=== PATIENT | male | born 1935 | race Caucasian/White ===

== ENCOUNTER 2018-01-02 01:34 | Emergency (ER) | payer MEDICARE ==
[2018-01-02 02:30] LABS: AGAP ISTAT 16 mmol/L (6-14); BUN ISTAT 29 mg/dL (8-26); CHLORIDE ISTAT 102 mmol/L (98-110); CREATININE ISTAT 1.5 mg/dL (0.5-1.4); GLUCOSE ISTAT 138 mg/dL (70-99); HEMATOCRIT ISTAT 37 % (37-52); HEMOGLOBIN ISTAT 12.6 g/dL (14-18); ION CA ISTAT 1.19 mmol/L (1.13-1.32); POTASSIUM ISTAT 3.9 mmol/L (3.5-5.0); SODIUM ISTAT 142 mmol/L (135-145); TOT CO2 ISTAT 29 mmol/L (23-32)
[2018-01-02] MEDS: IV NORMAL SALINE 1000ML BAG 1,000 ML IV (02:41)
[2018-01-02] MEDS: ONDANSETRON PF 4 MG/2 ML VIAL. IV (02:41)
[2018-01-02] MEDS ORDERED: IV NORMAL SALINE 1000ML BAG 1,000 ML IV (04:12)
[2018-01-02] MEDS ORDERED: ONDANSETRON PF 4 MG/2 ML VIAL. IV (04:15)
[2018-01-02] MEDS ORDERED: MORPHINE SULFATE 4 MG/ML DISP.SYRIN. IV (04:15)
== END 2018-01-02 04:47 | disposition home or self-care (01) ==
LOC: ER 01:34
DX: B34.9 Viral infection, unspecified (principal); I71.4 Abdominal aortic aneurysm, without rupture
CPT/HCPCS: 36415; 80047; 84484; 85014; 85018; 93005; 96361; 96374; 99285-25; J2405; J7030

== ENCOUNTER → 2018-01-21 | Outpatient (CLI) | payer MEDICARE ==
[2018-01-18 08:27] LABS: CREATININE 1.6 mg/dL (0.7-1.3)
[2018-01-18 08:27] LABS: GFR 41.7
[~2018-01-21] MED LIST: SODIUM BICARBONATE VIAL 150 MEQ in IV STERILE WATER 1,000 ML IV
[2018-01-21] MEDS: IOHEXOL 300 MG/ML 100ML VIAL. IV (10:36)
== END | disposition home or self-care (01) ==
LOC: CT 07:44
DX: I71.4 Abdominal aortic aneurysm, without rupture (principal); N28.1 Cyst of kidney, acquired; K57.30 Diverticulosis of large intestine without perforation or abscess without bleeding; I10 Essential (primary) hypertension; E11.9 Type 2 diabetes mellitus without complications; Z87.891 Personal history of nicotine dependence
CPT/HCPCS: 36415; 74174; 82565; Q9967

== ENCOUNTER 2018-02-25 23:50 | Inpatient (IN) | payer MEDICARE ==
[2018-02-26 00:25] LABS: ADD MAN DIFF? NO
[2018-02-26 00:30] LABS: BASO # 0.1 x10^3/uL (0.0-0.2); BASO % 1 % (0-3); EOS # 0.3 x10^3/uL (0.0-0.7); EOS % 4 % (0-3); HEMATOCRIT 34.9 % (39.0-53.0); HEMOGLOBIN 11.9 g/dL (13.0-17.5); LYMPH % 26 % (24-48); MEAN CORPUSCULAR HEMOGLOBIN 32 pg (25-35); MEAN CORPUSCULAR HGB CONC 34 g/dL (31-37); MEAN CORPUSCULAR VOLUME 93 fL (79-100); MONO # 0.6 x10^3/uL (0.0-1.1); MONO % 7 % (0-9); NEUT # 4.9 x10^3uL (1.8-7.7); NEUT % 62 % (31-73); PLATELET COUNT 209 x10^3/uL (140-400); RED BLOOD COUNT 3.74 x10^6/uL (4.30-5.70); RED CELL DISTRIBUTION WIDTH 12.7 % (11.5-14.5); WHITE BLOOD COUNT 7.9 x10^3/uL (4.0-11.0)
[2018-02-26] MEDS: IV NORMAL SALINE 1000ML BAG 1,000 ML IV (00:35)
[2018-02-26] MEDS: ONDANSETRON PF 4 MG/2 ML VIAL. IV ×2 (00:35→02:44)
[2018-02-26] MEDS: fentaNYL PF VIAL 100 MCG/2 ML VIAL IV ×5 (00:36→06:55)
[2018-02-26 00:38] LABS: INR 1.2 (0.8-1.1); PARTIAL THROMBOPLASTIN TIME 30 SEC (24-38); PROTHROMBIN TIME PATIENT 14.4 SEC (11.7-14.0)
[2018-02-26 00:48] LABS: ANION GAP 10 (6-14); BLOOD UREA NITROGEN 36 mg/dL (8-26); CALCIUM 10.3 mg/dL (8.5-10.1); CARBON DIOXIDE 28 mmol/L (21-32); CHLORIDE 103 mmol/L (98-107); CREATININE 1.5 mg/dL (0.7-1.3); GFR 44.9; GLUCOSE 113 mg/dL (70-99); POTASSIUM 4.4 mmol/L (3.5-5.1); SODIUM 141 mmol/L (136-145)
[2018-02-26 00:54] LABS: ALBUMIN 3.9 g/dL (3.4-5.0); ALK PHOS 73 U/L (46-116); ALT (SGPT) 19 U/L (16-63); AST (SGOT) 13 U/L (15-37); DIRECT BILIRUBIN 0.1 mg/dL (0.0-0.2); LIPASE 177 U/L (73-393); TOTAL BILIRUBIN 0.4 mg/dL (0.2-1.0); TOTAL PROTEIN 6.9 g/dL (6.4-8.2)
[2018-02-26 00:55] LABS: TROPONINI < 0.017 ng/mL (0.000-0.055)
[2018-02-26] MEDS ORDERED: CONTRAST GIVEN. MC (01:15)
[2018-02-26] MEDS ORDERED: ONDANSETRON PF 4 MG/2 ML VIAL. IV ×3 (03:00→06:00)
[2018-02-26] MEDS: PIPERACILLIN/TAZOBACTAM 3.375 GM in IV NORMAL SALINE 50ML 50 ML IV ×5 (03:30→23:54)
[2018-02-26] MEDS: IV RINGERS,LACTATED 1000ML 1,000 ML IV ×2 (03:33→09:10)
[2018-02-26] MEDS: MORPHINE SULFATE 4 MG/ML DISP.SYRIN. IV (03:34)
[2018-02-26] MEDS ORDERED: fentaNYL PF VIAL 250 MCG/5 ML VIAL (03:36)
[2018-02-26] MEDS ORDERED: ROCURONIUM 50 MG/5 ML VIAL. (03:36)
[2018-02-26] MEDS ORDERED: SUCCINYLCHOLINE 200 MG/10 ML VIAL. (03:36)
[2018-02-26] MEDS ORDERED: SEVOFLURANE 61 TO 120 MINUTES. IH (03:37)
[2018-02-26] MEDS ORDERED: PHENYLEPHRINE in 0.9% NACL PF 1 MG/10 ML SYRINGE. IV (03:37)
[2018-02-26] MEDS ORDERED: PROPOFOL 20 ML IV (03:37)
[2018-02-26] MEDS ORDERED: METHYLENE BLUE 1% 10 ML VIAL. (03:59)
[2018-02-26] MEDS ORDERED: MORPHINE SULFATE 2 MG/ML DISP.SYRIN. IV (04:00)
[2018-02-26] MEDS ORDERED: LIDOCAINE 1% PF 2 ML VIAL. ID (04:00)
[2018-02-26] MEDS ORDERED: PROCHLORPERAZINE 10 MG/2 ML VIAL. IV (04:00)
[2018-02-26] MEDS ORDERED: fentaNYL PF VIAL 100 MCG/2 ML VIAL IV (04:00)
[2018-02-26] MEDS ORDERED: ALBUMIN HUMAN 5% 0 ML IV (04:26)
[2018-02-26] MEDS ORDERED: PHENYLEPHRINE 10 MG/ML VIAL. (04:27)
[2018-02-26] MEDS ORDERED: ESMOLOL 100 MG/10 ML VIAL. IV (04:35)
[2018-02-26] MEDS ORDERED: NEOSTIGMINE METHYLSULFATE 5 MG/5 ML SYRINGE. (04:47)
[2018-02-26] MEDS ORDERED: GLYCOPYRROLATE 1 MG/5 ML VIAL. (04:47)
[2018-02-26] MEDS ORDERED: DEXAMETHASONE SOD PHOS 20 MG/5 ML VIAL. (04:49)
[2018-02-26] MEDS ORDERED: ONDANSETRON PF 4 MG/2 ML VIAL. (04:49)
[2018-02-26] MEDS ORDERED: FAMOTIDINE 20 MG/2 ML VIAL (04:50)
[2018-02-26] MEDS ORDERED: 0.9 % SODIUM CHLORIDE 10 ML DISP.SYRIN. IV (06:00)
[2018-02-26] MEDS ORDERED: fentaNYL PF VIAL 100 MCG/2 ML VIAL (06:19)
[2018-02-26] MEDS: PANTOPRAZOLE IV PUSH 40 MG VIAL. IVP ×2 (09:10→17:04)
[2018-02-26] MEDS: PANTOPRAZOLE SODIUM IV DRIP 80 MG in IV NORMAL SALINE 100ML 100 ML IV (09:43)
[2018-02-26] MEDS: IV 1/2 NORMAL SALINE 1,000 ML IV ×2 (09:44→17:03)
[2018-02-26] MEDS: IOHEXOL 300 MG/ML 100ML VIAL. IV (09:49)
[2018-02-26 12:05] LABS: POC GLUCOSE 143 mg/dL (70-99)
[2018-02-26] MEDS: ENOXAPARIN 40 MG/0.4 ML SYRINGE. SQ (17:05)
[2018-02-26 17:13] LABS: POC GLUCOSE 128 mg/dL (70-99)
[2018-02-26 20:52] LABS: POC GLUCOSE 128 mg/dL (70-99)
[2018-02-26] MEDS: LACTOBACILLUS RHAMNOSUS GG 1 CAPSULE. PO (21:00)
[2018-02-27] MEDS: IV 1/2 NORMAL SALINE 1,000 ML IV (05:59)
[2018-02-27] MEDS: PIPERACILLIN/TAZOBACTAM 3.375 GM in IV NORMAL SALINE 50ML 50 ML IV ×3 (06:00→18:15)
[2018-02-27 06:09] LABS: BASO % 0 % (0-3); EOS % 0 % (0-3); HEMATOCRIT 31.5 % (39.0-53.0); HEMOGLOBIN 10.6 g/dL (13.0-17.5); LYMPH # 0.6 x10^3/uL (1.0-4.8); LYMPH % 5 % (24-48); MEAN CORPUSCULAR HEMOGLOBIN 32 pg (25-35); MEAN CORPUSCULAR HGB CONC 34 g/dL (31-37); MEAN CORPUSCULAR VOLUME 94 fL (79-100); MONO % 8 % (0-9); NEUT # 10.6 x10^3uL (1.8-7.7); NEUT % 87 % (31-73); PLATELET COUNT 175 x10^3/uL (140-400); RED BLOOD COUNT 3.36 x10^6/uL (4.30-5.70); RED CELL DISTRIBUTION WIDTH 13.1 % (11.5-14.5); WHITE BLOOD COUNT 12.2 x10^3/uL (4.0-11.0)
[2018-02-27 06:10] LABS: ADD MAN DIFF? YES
[2018-02-27 06:29] LABS: ANION GAP 7 (6-14); BLOOD UREA NITROGEN 31 mg/dL (8-26); CALCIUM 8.7 mg/dL (8.5-10.1); CARBON DIOXIDE 27 mmol/L (21-32); CHLORIDE 103 mmol/L (98-107); CREATININE 1.7 mg/dL (0.7-1.3); GFR 38.9; GLUCOSE 116 mg/dL (70-99); POTASSIUM 4.6 mmol/L (3.5-5.1); SODIUM 137 mmol/L (136-145)
[2018-02-27 07:43] LABS: % BANDS 16 % (0-9); % BASOS 1 % (0-3); % LYMPHS 3 % (24-48); % METAS 3 % (0-0); % MONOS 4 % (0-10); % SEGS 73 % (35-66)
[2018-02-27 07:44] LABS: PLT ESTIMATE ADEQUATE (ADEQUATE); TOXIC VACUOLATION SLIGHT
[2018-02-27] MEDS: LACTOBACILLUS RHAMNOSUS GG 1 CAPSULE. PO ×2 (09:00→21:00)
[2018-02-27] MEDS: PANTOPRAZOLE IV PUSH 40 MG VIAL. IVP (10:52)
[2018-02-27 12:02] LABS: POC GLUCOSE 100 mg/dL (70-99)
[2018-02-27 12:02] LABS: POC GLUCOSE 112 mg/dL (70-99)
[2018-02-27] MEDS ORDERED: VANCOMYCIN 1 GM in IV DEXTROSE 5% 250 ML IV (16:00)
[2018-02-27] MEDS: AMINO AC 3%/ELECTROLYTE/GLYCER 1,000 ML IV (16:18)
[2018-02-27] MEDS: VANCOMYCIN 2 GM in IV 1/2 NORMAL SALINE 500 ML IV (16:19)
[2018-02-27] MEDS: ENOXAPARIN 40 MG/0.4 ML SYRINGE. SQ (16:30)
[2018-02-27 16:38] LABS: LACTIC ACID 1.5 mmol/L (0.4-2.0)
[2018-02-27] MEDS: IV NORMAL SALINE 1000ML BAG 1,000 ML IV ×2 (16:48→22:00)
[2018-02-27 17:13] LABS: POC GLUCOSE 99 mg/dL (70-99)
[2018-02-27] MEDS: ALBUTEROL SULFATE 2.5 MG/3 ML NEBU. NEB ×2 (17:31→22:17)
[2018-02-27] MEDS: VANCOMYCIN PER PHARMACY MC (18:44)
[2018-02-27 20:45] LABS: POC GLUCOSE 119 mg/dL (70-99)
[2018-02-28] MEDS: PIPERACILLIN/TAZOBACTAM 3.375 GM in IV NORMAL SALINE 50ML 50 ML IV ×4 (00:25→18:00)
[2018-02-28] MEDS: ALBUTEROL SULFATE 2.5 MG/3 ML NEBU. NEB ×2 (02:40→09:47)
[2018-02-28] MEDS: IV NORMAL SALINE 1000ML BAG 1,000 ML IV ×2 (04:00→13:27)
[2018-02-28 05:04] LABS: ADD MAN DIFF? NO
[2018-02-28 05:49] LABS: ANION GAP 9 (6-14); BLOOD UREA NITROGEN 27 mg/dL (8-26); CALCIUM 8.2 mg/dL (8.5-10.1); CARBON DIOXIDE 23 mmol/L (21-32); CHLORIDE 99 mmol/L (98-107); CREATININE 1.4 mg/dL (0.7-1.3); GFR 48.6; GLUCOSE 164 mg/dL (70-99); POTASSIUM 3.9 mmol/L (3.5-5.1); SODIUM 131 mmol/L (136-145)
[2018-02-28] MEDS: AMINO AC 3%/ELECTROLYTE/GLYCER 1,000 ML IV ×2 (06:00→15:15)
[2018-02-28 08:05] LABS: POC GLUCOSE 173 mg/dL (70-99)
[2018-02-28] MEDS: LACTOBACILLUS RHAMNOSUS GG 1 CAPSULE. PO ×2 (08:18→21:00)
[2018-02-28] MEDS: PANTOPRAZOLE IV PUSH 40 MG VIAL. IVP (08:27)
[2018-02-28 08:35] LABS: BASO % 0 % (0-3); EOS % 0 % (0-3); HEMATOCRIT 30.7 % (39.0-53.0); HEMOGLOBIN 10.5 g/dL (13.0-17.5); LYMPH # 0.5 x10^3/uL (1.0-4.8); LYMPH % 4 % (24-48); MEAN CORPUSCULAR HEMOGLOBIN 32 pg (25-35); MEAN CORPUSCULAR HGB CONC 34 g/dL (31-37); MEAN CORPUSCULAR VOLUME 93 fL (79-100); MONO # 0.6 x10^3/uL (0.0-1.1); MONO % 5 % (0-9); NEUT # 12.3 x10^3uL (1.8-7.7); NEUT % 92 % (31-73); PLATELET COUNT 191 x10^3/uL (140-400); RED CELL DISTRIBUTION WIDTH 12.6 % (11.5-14.5); WHITE BLOOD COUNT 13.5 x10^3/uL (4.0-11.0)
[2018-02-28] MEDS: TAMSULOSIN 0.4 MG CAP.ER.24H. PO (09:35)
[2018-02-28 11:23] LABS: POC GLUCOSE 158 mg/dL (70-99)
[2018-02-28 11:40] LABS: LACTIC ACID 2.4 mmol/L (0.4-2.0)
[2018-02-28] MEDS: FLUCONAZOLE 200MG/100ML PREMIX 100 ML IV (13:55)
[2018-02-28] MEDS: ACETAMINOPHEN 325 MG SUPP.RECT. PR (14:06)
[2018-02-28] MEDS ORDERED: VANCOMYCIN 1.25 GM in IV DEXTROSE 5% 250 ML IV (16:00)
[2018-02-28 16:15] LABS: LACTIC ACID 1.4 mmol/L (0.4-2.0)
[2018-02-28] MEDS: ENOXAPARIN 40 MG/0.4 ML SYRINGE. SQ (16:21)
[2018-02-28 16:42] LABS: POC GLUCOSE 163 mg/dL (70-99)
[2018-02-28 21:07] LABS: POC GLUCOSE 135 mg/dL (70-99)
[2018-02-28] MEDS: diphenhydrAMINE 50 MG/ML VIAL IVP (21:31)
[2018-03-01] MEDS: PIPERACILLIN/TAZOBACTAM 3.375 GM in IV NORMAL SALINE 50ML 50 ML IV ×5 (00:16→23:42)
[2018-03-01] MEDS: AMINO AC 3%/ELECTROLYTE/GLYCER 1,000 ML IV ×2 (04:11→16:08)
[2018-03-01 07:20] LABS: ADD MAN DIFF? NO
[2018-03-01 07:32] LABS: BASO % 0 % (0-3); EOS # 0.1 x10^3/uL (0.0-0.7); EOS % 0 % (0-3); HEMATOCRIT 31.2 % (39.0-53.0); HEMOGLOBIN 10.6 g/dL (13.0-17.5); LYMPH # 0.4 x10^3/uL (1.0-4.8); LYMPH % 3 % (24-48); MEAN CORPUSCULAR HEMOGLOBIN 31 pg (25-35); MEAN CORPUSCULAR HGB CONC 34 g/dL (31-37); MEAN CORPUSCULAR VOLUME 92 fL (79-100); MONO # 0.9 x10^3/uL (0.0-1.1); MONO % 6 % (0-9); NEUT # 13.1 x10^3uL (1.8-7.7); NEUT % 91 % (31-73); PLATELET COUNT 207 x10^3/uL (140-400); RED BLOOD COUNT 3.38 x10^6/uL (4.30-5.70); RED CELL DISTRIBUTION WIDTH 12.8 % (11.5-14.5); WHITE BLOOD COUNT 14.5 x10^3/uL (4.0-11.0)
[2018-03-01 07:42] LABS: ALBUMIN 2.1 g/dL (3.4-5.0); ALBUMIN/GLOBULIN RATIO 0.5 (1.0-1.7); ALK PHOS 57 U/L (46-116); ALT (SGPT) 10 U/L (16-63); ANION GAP 9 (6-14); AST (SGOT) 11 U/L (15-37); BLOOD UREA NITROGEN 22 mg/dL (8-26); BUN/CREATININE RATIO 20 (6-20); CALCIUM 8.4 mg/dL (8.5-10.1); CARBON DIOXIDE 23 mmol/L (21-32); CHLORIDE 100 mmol/L (98-107); CREATININE 1.1 mg/dL (0.7-1.3); GFR 64.2; GLUCOSE 146 mg/dL (70-99); POTASSIUM 3.6 mmol/L (3.5-5.1); SODIUM 132 mmol/L (136-145); TOTAL BILIRUBIN 0.4 mg/dL (0.2-1.0)
[2018-03-01 07:55] LABS: LACTIC ACID 1.4 mmol/L (0.4-2.0)
[2018-03-01] MEDS: LACTOBACILLUS RHAMNOSUS GG 1 CAPSULE. PO ×2 (07:59→20:59)
[2018-03-01 08:00] LABS: POC GLUCOSE 136 mg/dL (70-99)
[2018-03-01] MEDS: PANTOPRAZOLE IV PUSH 40 MG VIAL. IVP (08:16)
[2018-03-01] MEDS: TAMSULOSIN 0.4 MG CAP.ER.24H. PO (08:17)
[2018-03-01] MEDS: FLUCONAZOLE 200MG/100ML PREMIX 100 ML IV (11:48)
[2018-03-01 12:27] LABS: POC GLUCOSE 138 mg/dL (70-99)
[2018-03-01] MEDS: ENOXAPARIN 40 MG/0.4 ML SYRINGE. SQ (16:00)
[2018-03-01 16:20] LABS: POC GLUCOSE 127 mg/dL (70-99)
[2018-03-01 21:21] LABS: POC GLUCOSE 118 mg/dL (70-99)
[2018-03-02] MEDS: AMINO AC 3%/ELECTROLYTE/GLYCER 1,000 ML IV ×2 (03:49→17:15)
[2018-03-02 05:13] LABS: ADD MAN DIFF? NO
[2018-03-02 05:40] LABS: BASO % 0 % (0-3); EOS # 0.3 x10^3/uL (0.0-0.7); EOS % 2 % (0-3); HEMATOCRIT 28.2 % (39.0-53.0); HEMOGLOBIN 9.6 g/dL (13.0-17.5); LYMPH # 0.7 x10^3/uL (1.0-4.8); LYMPH % 5 % (24-48); MEAN CORPUSCULAR HEMOGLOBIN 31 pg (25-35); MEAN CORPUSCULAR HGB CONC 34 g/dL (31-37); MEAN CORPUSCULAR VOLUME 92 fL (79-100); MONO # 1.2 x10^3/uL (0.0-1.1); MONO % 9 % (0-9); NEUT # 10.4 x10^3uL (1.8-7.7); NEUT % 83 % (31-73); PLATELET COUNT 224 x10^3/uL (140-400); RED BLOOD COUNT 3.08 x10^6/uL (4.30-5.70); RED CELL DISTRIBUTION WIDTH 12.7 % (11.5-14.5); WHITE BLOOD COUNT 12.6 x10^3/uL (4.0-11.0)
[2018-03-02 06:04] LABS: ALBUMIN/GLOBULIN RATIO 0.5 (1.0-1.7); ALK PHOS 53 U/L (46-116); ALT (SGPT) 14 U/L (16-63); ANION GAP 7 (6-14); AST (SGOT) 12 U/L (15-37); BLOOD UREA NITROGEN 22 mg/dL (8-26); BUN/CREATININE RATIO 22 (6-20); CALCIUM 8.4 mg/dL (8.5-10.1); CARBON DIOXIDE 24 mmol/L (21-32); CHLORIDE 99 mmol/L (98-107); GFR 71.7; GLUCOSE 130 mg/dL (70-99); POTASSIUM 3.9 mmol/L (3.5-5.1); SODIUM 130 mmol/L (136-145); TOTAL BILIRUBIN 0.4 mg/dL (0.2-1.0); TOTAL PROTEIN 5.8 g/dL (6.4-8.2)
[2018-03-02] MEDS: PIPERACILLIN/TAZOBACTAM 3.375 GM in IV NORMAL SALINE 50ML 50 ML IV ×3 (06:05→17:50)
[2018-03-02] MEDS: PANTOPRAZOLE IV PUSH 40 MG VIAL. IVP (06:05)
[2018-03-02] MEDS: ALBUTEROL SULFATE 2.5 MG/3 ML NEBU. NEB ×2 (07:10→16:54)
[2018-03-02] MEDS: TAMSULOSIN 0.4 MG CAP.ER.24H. PO (10:16)
[2018-03-02] MEDS: LACTOBACILLUS RHAMNOSUS GG 1 CAPSULE. PO ×2 (10:16→22:12)
[2018-03-02] MEDS: oxyCODONE/APAP 5/325 1 TAB TABLET PO ×3 (10:35→22:12)
[2018-03-02] MEDS: FLUCONAZOLE 200MG/100ML PREMIX 100 ML IV (12:47)
[2018-03-02 12:55] LABS: POC GLUCOSE 129 mg/dL (70-99)
[2018-03-02 12:56] LABS: POC GLUCOSE 180 mg/dL (70-99)
[2018-03-02] MEDS: FINASTERIDE 5 MG TABLET. PO (15:00)
[2018-03-02] MEDS: metFORMIN 500 MG TABLET PO (15:12)
[2018-03-02] MEDS: ENOXAPARIN 40 MG/0.4 ML SYRINGE. SQ (15:13)
[2018-03-02] MEDS: ALPRAZolam 0.5 MG TABLET PO (19:59)
[2018-03-03] MEDS: PIPERACILLIN/TAZOBACTAM 3.375 GM in IV NORMAL SALINE 50ML 50 ML IV ×4 (00:15→17:28)
[2018-03-03] MEDS: AMINO AC 3%/ELECTROLYTE/GLYCER 1,000 ML IV ×3 (00:15→20:59)
[2018-03-03] MEDS: ALBUTEROL SULFATE 2.5 MG/3 ML NEBU. NEB ×2 (04:13→20:05)
[2018-03-03] MEDS: PANTOPRAZOLE IV PUSH 40 MG VIAL. IVP (06:05)
[2018-03-03] MEDS: LACTOBACILLUS RHAMNOSUS GG 1 CAPSULE. PO ×2 (07:38→20:54)
[2018-03-03] MEDS: TAMSULOSIN 0.4 MG CAP.ER.24H. PO (07:38)
[2018-03-03] MEDS: oxyCODONE/APAP 5/325 1 TAB TABLET PO ×3 (08:32→20:54)
[2018-03-03 08:46] LABS: POC GLUCOSE 141 mg/dL (70-99)
[2018-03-03] MEDS: FINASTERIDE 5 MG TABLET. PO (09:00)
[2018-03-03] MEDS: ENOXAPARIN 40 MG/0.4 ML SYRINGE. SQ (16:22)
[2018-03-03] MEDS: ALPRAZolam 0.5 MG TABLET PO (20:54)
[2018-03-03 21:17] LABS: POC GLUCOSE 131 mg/dL (70-99)
[2018-03-04] MEDS: PIPERACILLIN/TAZOBACTAM 3.375 GM in IV NORMAL SALINE 50ML 50 ML IV ×4 (00:07→18:33)
[2018-03-04] MEDS: AMINO AC 3%/ELECTROLYTE/GLYCER 1,000 ML IV ×2 (00:23→13:13)
[2018-03-04 05:32] LABS: BASO # 0.1 x10^3/uL (0.0-0.2); BASO % 1 % (0-3); EOS # 0.6 x10^3/uL (0.0-0.7); EOS % 6 % (0-3); HEMATOCRIT 30.1 % (39.0-53.0); HEMOGLOBIN 10.4 g/dL (13.0-17.5); LYMPH # 0.6 x10^3/uL (1.0-4.8); LYMPH % 6 % (24-48); MEAN CORPUSCULAR HEMOGLOBIN 32 pg (25-35); MEAN CORPUSCULAR HGB CONC 35 g/dL (31-37); MEAN CORPUSCULAR VOLUME 92 fL (79-100); MONO # 1.1 x10^3/uL (0.0-1.1); MONO % 10 % (0-9); NEUT # 8.2 x10^3uL (1.8-7.7); NEUT % 77 % (31-73); PLATELET COUNT 256 x10^3/uL (140-400); RED BLOOD COUNT 3.27 x10^6/uL (4.30-5.70); RED CELL DISTRIBUTION WIDTH 12.8 % (11.5-14.5); WHITE BLOOD COUNT 10.6 x10^3/uL (4.0-11.0)
[2018-03-04 05:37] LABS: ADD MAN DIFF? YES
[2018-03-04 05:49] LABS: ANION GAP 4 (6-14); BLOOD UREA NITROGEN 26 mg/dL (8-26); CALCIUM 8.7 mg/dL (8.5-10.1); CARBON DIOXIDE 27 mmol/L (21-32); CHLORIDE 101 mmol/L (98-107); CREATININE 1.1 mg/dL (0.7-1.3); GFR 64.2; GLUCOSE 134 mg/dL (70-99); POTASSIUM 4.3 mmol/L (3.5-5.1); SODIUM 132 mmol/L (136-145)
[2018-03-04] MEDS: PANTOPRAZOLE IV PUSH 40 MG VIAL. IVP ×2 (06:02→16:40)
[2018-03-04 08:07] LABS: POC GLUCOSE 120 mg/dL (70-99)
[2018-03-04] MEDS: ALBUTEROL SULFATE 2.5 MG/3 ML NEBU. NEB (09:00)
[2018-03-04] MEDS: FINASTERIDE 5 MG TABLET. PO (09:32)
[2018-03-04] MEDS: LACTOBACILLUS RHAMNOSUS GG 1 CAPSULE. PO ×2 (09:32→21:35)
[2018-03-04] MEDS: TAMSULOSIN 0.4 MG CAP.ER.24H. PO (09:33)
[2018-03-04 12:12] LABS: POC GLUCOSE 137 mg/dL (70-99)
[2018-03-04] MEDS: BISACODYL 10 MG SUPP.RECT. PR (13:50)
[2018-03-04] MEDS: fentaNYL PF VIAL 100 MCG/2 ML VIAL IV ×2 (14:17→17:03)
[2018-03-04] MEDS: ENOXAPARIN 40 MG/0.4 ML SYRINGE. SQ (16:42)
[2018-03-04 16:52] LABS: POC GLUCOSE 131 mg/dL (70-99)
[2018-03-04] MEDS: FUROSEMIDE 20 MG/2 ML VIAL. IVP (18:32)
[2018-03-04 20:51] LABS: POC GLUCOSE 136 mg/dL (70-99)
[2018-03-04] MEDS: SIMVASTATIN 20 MG TABLET PO (21:35)
[2018-03-05] MEDS: PIPERACILLIN/TAZOBACTAM 3.375 GM in IV NORMAL SALINE 50ML 50 ML IV ×2 (00:10→05:55)
[2018-03-05] MEDS: AMINO AC 3%/ELECTROLYTE/GLYCER 1,000 ML IV ×2 (03:19→22:03)
[2018-03-05 05:21] LABS: ADD MAN DIFF? NO
[2018-03-05 05:28] LABS: BASO # 0.1 x10^3/uL (0.0-0.2); BASO % 1 % (0-3); EOS # 0.5 x10^3/uL (0.0-0.7); EOS % 5 % (0-3); HEMATOCRIT 30.5 % (39.0-53.0); HEMOGLOBIN 10.4 g/dL (13.0-17.5); LYMPH # 0.7 x10^3/uL (1.0-4.8); LYMPH % 7 % (24-48); MEAN CORPUSCULAR HEMOGLOBIN 32 pg (25-35); MEAN CORPUSCULAR HGB CONC 34 g/dL (31-37); MEAN CORPUSCULAR VOLUME 92 fL (79-100); MONO # 0.8 x10^3/uL (0.0-1.1); MONO % 9 % (0-9); NEUT # 7.7 x10^3uL (1.8-7.7); NEUT % 78 % (31-73); PLATELET COUNT 282 x10^3/uL (140-400); RED BLOOD COUNT 3.32 x10^6/uL (4.30-5.70); RED CELL DISTRIBUTION WIDTH 12.5 % (11.5-14.5); WHITE BLOOD COUNT 9.8 x10^3/uL (4.0-11.0)
[2018-03-05] MEDS: fentaNYL PF VIAL 100 MCG/2 ML VIAL IV (07:30)
[2018-03-05 07:56] LABS: POC GLUCOSE 132 mg/dL (70-99)
[2018-03-05] MEDS: LACTOBACILLUS RHAMNOSUS GG 1 CAPSULE. PO ×2 (09:00→22:03)
[2018-03-05] MEDS: FINASTERIDE 5 MG TABLET. PO (09:39)
[2018-03-05] MEDS: ASPIRIN CHEWABLE 81 MG TABLET. PO (09:39)
[2018-03-05] MEDS: TAMSULOSIN 0.4 MG CAP.ER.24H. PO (09:39)
[2018-03-05] MEDS: PANTOPRAZOLE IV PUSH 40 MG VIAL. IVP ×2 (09:40→16:36)
[2018-03-05 11:55] LABS: POC GLUCOSE 123 mg/dL (70-99)
[2018-03-05 15:16] LABS: ANION GAP 4 (6-14); BLOOD UREA NITROGEN 24 mg/dL (8-26); CALCIUM 8.9 mg/dL (8.5-10.1); CARBON DIOXIDE 30 mmol/L (21-32); CHLORIDE 99 mmol/L (98-107); CREATININE 1.1 mg/dL (0.7-1.3); GFR 64.2; GLUCOSE 115 mg/dL (70-99); POTASSIUM 4.3 mmol/L (3.5-5.1); SODIUM 133 mmol/L (136-145)
[2018-03-05] MEDS: ENOXAPARIN 40 MG/0.4 ML SYRINGE. SQ (16:36)
[2018-03-05 17:06] LABS: POC GLUCOSE 116 mg/dL (70-99)
[2018-03-05 20:42] LABS: POC GLUCOSE 133 mg/dL (70-99)
[2018-03-05] MEDS: ALPRAZolam 0.5 MG TABLET PO (22:03)
[2018-03-05] MEDS: SIMVASTATIN 20 MG TABLET PO (22:03)
[2018-03-05] MEDS: oxyCODONE/APAP 5/325 1 TAB TABLET PO (22:04)
[2018-03-06 05:08] LABS: ADD MAN DIFF? NO
[2018-03-06 05:14] LABS: BASO # 0.1 x10^3/uL (0.0-0.2); BASO % 1 % (0-3); EOS # 0.5 x10^3/uL (0.0-0.7); EOS % 5 % (0-3); HEMATOCRIT 29.2 % (39.0-53.0); LYMPH % 11 % (24-48); MEAN CORPUSCULAR HEMOGLOBIN 31 pg (25-35); MEAN CORPUSCULAR HGB CONC 34 g/dL (31-37); MEAN CORPUSCULAR VOLUME 92 fL (79-100); MONO # 0.8 x10^3/uL (0.0-1.1); MONO % 9 % (0-9); NEUT # 6.7 x10^3uL (1.8-7.7); NEUT % 73 % (31-73); PLATELET COUNT 321 x10^3/uL (140-400); RED BLOOD COUNT 3.18 x10^6/uL (4.30-5.70); RED CELL DISTRIBUTION WIDTH 12.8 % (11.5-14.5); WHITE BLOOD COUNT 9.2 x10^3/uL (4.0-11.0)
[2018-03-06 05:38] LABS: ANION GAP 5 (6-14); BLOOD UREA NITROGEN 22 mg/dL (8-26); CALCIUM 8.9 mg/dL (8.5-10.1); CARBON DIOXIDE 29 mmol/L (21-32); CHLORIDE 101 mmol/L (98-107); CREATININE 1.1 mg/dL (0.7-1.3); GFR 64.2; GLUCOSE 117 mg/dL (70-99); POTASSIUM 4.1 mmol/L (3.5-5.1); SODIUM 135 mmol/L (136-145)
[2018-03-06 08:00] LABS: POC GLUCOSE 123 mg/dL (70-99)
[2018-03-06] MEDS: BISACODYL 10 MG SUPP.RECT. PR (08:13)
[2018-03-06] MEDS: LACTOBACILLUS RHAMNOSUS GG 1 CAPSULE. PO ×2 (08:15→21:30)
[2018-03-06] MEDS: TAMSULOSIN 0.4 MG CAP.ER.24H. PO (08:15)
[2018-03-06] MEDS: FINASTERIDE 5 MG TABLET. PO (08:15)
[2018-03-06] MEDS: ASPIRIN CHEWABLE 81 MG TABLET. PO (08:15)
[2018-03-06] MEDS: PANTOPRAZOLE IV PUSH 40 MG VIAL. IVP ×2 (08:15→16:30)
[2018-03-06] MEDS: AMINO AC 3%/ELECTROLYTE/GLYCER 1,000 ML IV ×2 (08:45→10:39)
[2018-03-06 11:45] LABS: POC GLUCOSE 119 mg/dL (70-99)
[2018-03-06] MEDS: ENOXAPARIN 40 MG/0.4 ML SYRINGE. SQ (16:33)
[2018-03-06] MEDS: oxyCODONE/APAP 5/325 1 TAB TABLET PO ×2 (16:36→21:31)
[2018-03-06 16:53] LABS: POC GLUCOSE 122 mg/dL (70-99)
[2018-03-06 20:13] LABS: POC GLUCOSE 140 mg/dL (70-99)
[2018-03-06] MEDS: SIMVASTATIN 20 MG TABLET PO (21:30)
[2018-03-06] MEDS: ALPRAZolam 0.5 MG TABLET PO (21:31)
[2018-03-07] MEDS: oxyCODONE/APAP 5/325 1 TAB TABLET PO ×3 (02:16→21:06)
[2018-03-07] MEDS: AMINO AC 3%/ELECTROLYTE/GLYCER 1,000 ML IV ×2 (04:05→16:33)
[2018-03-07 07:30] LABS: POC GLUCOSE 131 mg/dL (70-99)
[2018-03-07] MEDS: PANTOPRAZOLE IV PUSH 40 MG VIAL. IVP (07:52)
[2018-03-07] MEDS: LACTOBACILLUS RHAMNOSUS GG 1 CAPSULE. PO ×2 (07:52→21:01)
[2018-03-07] MEDS: TAMSULOSIN 0.4 MG CAP.ER.24H. PO (07:53)
[2018-03-07] MEDS: ASPIRIN CHEWABLE 81 MG TABLET. PO (09:00)
[2018-03-07] MEDS: FINASTERIDE 5 MG TABLET. PO (09:00)
[2018-03-07 11:42] LABS: POC GLUCOSE 150 mg/dL (70-99)
[2018-03-07] MEDS: PANTOPRAZOLE 40 MG TABLET.DR. PO (16:34)
[2018-03-07] MEDS: ENOXAPARIN 40 MG/0.4 ML SYRINGE. SQ (16:34)
[2018-03-07] MEDS: SIMVASTATIN 20 MG TABLET PO (21:01)
[2018-03-07] MEDS: ALPRAZolam 0.5 MG TABLET PO (21:04)
[2018-03-08 04:18] LABS: ADD MAN DIFF? NO
[2018-03-08 04:27] LABS: BASO # 0.1 x10^3/uL (0.0-0.2); BASO % 1 % (0-3); EOS # 0.5 x10^3/uL (0.0-0.7); EOS % 4 % (0-3); HEMATOCRIT 28.1 % (39.0-53.0); HEMOGLOBIN 9.9 g/dL (13.0-17.5); LYMPH # 1.3 x10^3/uL (1.0-4.8); LYMPH % 12 % (24-48); MEAN CORPUSCULAR HEMOGLOBIN 32 pg (25-35); MEAN CORPUSCULAR HGB CONC 35 g/dL (31-37); MEAN CORPUSCULAR VOLUME 92 fL (79-100); MONO # 0.9 x10^3/uL (0.0-1.1); MONO % 8 % (0-9); NEUT # 8.8 x10^3uL (1.8-7.7); NEUT % 75 % (31-73); PLATELET COUNT 378 x10^3/uL (140-400); RED BLOOD COUNT 3.06 x10^6/uL (4.30-5.70); RED CELL DISTRIBUTION WIDTH 12.7 % (11.5-14.5); WHITE BLOOD COUNT 11.7 x10^3/uL (4.0-11.0)
[2018-03-08] MEDS: AMINO AC 3%/ELECTROLYTE/GLYCER 1,000 ML IV (04:30)
[2018-03-08 04:45] LABS: ANION GAP 6 (6-14); BLOOD UREA NITROGEN 19 mg/dL (8-26); CALCIUM 9.1 mg/dL (8.5-10.1); CARBON DIOXIDE 30 mmol/L (21-32); CHLORIDE 101 mmol/L (98-107); CREATININE 1.2 mg/dL (0.7-1.3); GFR 58.1; GLUCOSE 112 mg/dL (70-99); POTASSIUM 4.3 mmol/L (3.5-5.1); SODIUM 137 mmol/L (136-145)
[2018-03-08] MEDS: ASPIRIN CHEWABLE 81 MG TABLET. PO (08:18)
[2018-03-08] MEDS: TAMSULOSIN 0.4 MG CAP.ER.24H. PO (08:18)
[2018-03-08] MEDS: LACTOBACILLUS RHAMNOSUS GG 1 CAPSULE. PO (08:19)
[2018-03-08] MEDS: PANTOPRAZOLE 40 MG TABLET.DR. PO (08:19)
[2018-03-08] MEDS: oxyCODONE/APAP 5/325 1 TAB TABLET PO (08:28)
[2018-03-08] MEDS: FINASTERIDE 5 MG TABLET. PO (09:00)
== END 2018-03-08 13:25 | disposition home health service (06) | DRG 853 ==
LOC: 4 NORTH 03-01 16:17 → ER 23:50 → 4 NORTH 02-26 03:00
PROC: 0DU947Z Supplement Duodenum with Autologous Tissue Substitute, Percutaneous Endoscopic Approach (ICD-10-PCS; principal; 2018-02-26 03:45)
DX: A41.9 Sepsis, unspecified organism (principal); K26.1 Acute duodenal ulcer with perforation; N17.0 Acute kidney failure with tubular necrosis; J96.00 Acute respiratory failure, unspecified whether with hypoxia or hypercapnia; K63.1 Perforation of intestine (nontraumatic); K26.5 Chronic or unspecified duodenal ulcer with perforation; J44.1 Chronic obstructive pulmonary disease with (acute) exacerbation; J98.11 Atelectasis; K56.7 Ileus, unspecified; N18.3 Chronic kidney disease, stage 3 (moderate); E11.22 Type 2 diabetes mellitus with diabetic chronic kidney disease; E86.0 Dehydration; I12.9 Hypertensive chronic kidney disease with stage 1 through stage 4 chronic kidney disease, or unspecified chronic kidney disease; I71.4 Abdominal aortic aneurysm, without rupture; K66.8 Other specified disorders of peritoneum; N28.1 Cyst of kidney, acquired; N40.0 Benign prostatic hyperplasia without lower urinary tract symptoms; Z82.49 Family history of ischemic heart disease and other diseases of the circulatory system; Z87.891 Personal history of nicotine dependence; Z87.11 Personal history of peptic ulcer disease
CPT/HCPCS: 36415; 71045; 71275; 74174; 80048; 80053; 80076; 82962; 83605; 83690; 84484; 85007; 85025; 85610; 85730; 86850; 86900; 86901; 87040; 93005; 94640; 94760; 96361; 96365; 96375; 96376; 97116-GP; 97162-GP; 97166-GO; 97530-GP; 97535-GO; 99285; 99285-25; A7015; C9113; J0330; J1100; J1200; J1450; J1650; J2020; J2060; J2270; J2370; J2405; J2543; J2704; J2710; J3010; J3370; J3490; J7030; J7120; J7613; P9045; Q9968; S0028

== ENCOUNTER → 2018-04-26 | Day surgery (SDC) | payer MEDICARE ==
[~2018-04-26] MED LIST changes: +ASCO500T PO; +ASPI-630 PO; +ATEN25TA PO; +CALC1CAP7 PO; +CALC667C6 PO; +CHOL100013 PO; +CYAN25003 SL; +FINA5TAB4 PO; +GLUC100018 PO; +IV RINGERS,LACTATED 1000ML 1,000 ML IV ONE; +IV RINGERS,LACTATED 1000ML 1,000 ML IV SCH; +LIDOCAINE 2% PF Vial for OR 5 ML VIAL. ONE; +LISI1TAB5 PO; +MAGN400C PO; +METF500T5 PO; +OMEG-123 PO; +ONDA4TAB10 SL; +OXYC1TAB7 PO; +POTA10TA12 PO; +POTA8CAP PO; +PROPOFOL 20 ML IV ONE; +Pantoprazole PO; +SIMV20TA3 PO; -SODIUM BICARBONATE VIAL 150 MEQ in IV STERILE WATER 1,000 ML IV; +TAMS0.4C2 PO
[2018-04-26 07:45] VITALS: BP 95/63
--- NOTE | 2018-04-26 13:46 | HP ---
ADMIT DATE: 04/26/2018 UPDATED HISTORY AND PHYSICAL REFERRING PHYSICIAN: Dr. Deven Orr. HISTORY OF PRESENT ILLNESS: An 82-year-old male whose past medical history is significant for hypertension, hyperlipidemia, osteoarthrosis and history of duodenal ulcer, status post ulcer oversew back in February is here for endoscopy. He has had persistent early satiety and fullness since the surgery. Denies any melena and/or hematochezia. He had been taking NSAIDS previously and with the continued issues, he is here today. PAST MEDICAL HISTORY: Hypertension, hyperlipidemia, osteoarthrosis, status post hip fracture and history of AAA. PAST SURGICAL HISTORY: Status post duodenal ulcer repair, history of colonic polyp resections and vasectomy. MEDICATIONS: Include vitamin C, aspirin, vitamin B12, lisinopril, hydrochlorothiazide, magnesium, Zofran, oxycodone, simvastatin and pantoprazole. SOCIAL HISTORY: He is social drinker and former smoker. FAMILY HISTORY: Noncontributory. REVIEW OF SYSTEMS: Per records. PHYSICAL EXAMINATION: GENERAL: Reveals a well-nourished, well-developed male. VITAL SIGNS: Temperature is 98.5, pulse 85 and respirations 18. HEENT EXAMINATION: Normocephalic, atraumatic. Pupils and extraocular muscles not tested. Sclerae anicteric. NECK: Supple. LUNGS: Clear. CARDIOVASCULAR EXAMINATION: Reveals S1 and S2, without S3, S4 or appreciable murmur. ABDOMEN: Exam reveals a soft abdomen. Normoactive bowel sounds, with an intact epigastric incision. EXTREMITIES: Exam reveals no cyanosis, clubbing or edema. IMPRESSION AND PLAN: History of duodenal ulcer perforation, status post oversew. Upper endoscopy to assess for gastric outlet obstruction and/or duodenal stricture is recommended. Risks and benefits of the procedure have been discussed with the patient. He is willing to proceed at this time. ELZBIETA HAYES MD DR: KENNEDY/kisha JOB#: [id number] / [id number]
== END | disposition home or self-care (01) ==
LOC: ENDOS 05:42
PROVIDERS: ATTEND Internal Medicine Gastroenterology
DX: K26.5 Chronic or unspecified duodenal ulcer with perforation (principal); K29.50 Unspecified chronic gastritis without bleeding; I12.9 Hypertensive chronic kidney disease with stage 1 through stage 4 chronic kidney disease, or unspecified chronic kidney disease; E11.22 Type 2 diabetes mellitus with diabetic chronic kidney disease; N18.3 Chronic kidney disease, stage 3 (moderate); E78.00 Pure hypercholesterolemia, unspecified; J44.1 Chronic obstructive pulmonary disease with (acute) exacerbation; M19.90 Unspecified osteoarthritis, unspecified site; Z87.81 Personal history of (healed) traumatic fracture; I71.4 Abdominal aortic aneurysm, without rupture; Z98.52 Vasectomy status; Z86.010 Personal history of colon polyps; Z98.890 Other specified postprocedural states; Z79.82 Long term (current) use of aspirin; Z79.899 Other long term (current) drug therapy; Z87.891 Personal history of nicotine dependence; Z72.89 Other problems related to lifestyle; Z98.42 Cataract extraction status, left eye; Z98.41 Cataract extraction status, right eye; Z96.1 Presence of intraocular lens; Z79.84 Long term (current) use of oral hypoglycemic drugs; N40.0 Benign prostatic hyperplasia without lower urinary tract symptoms; Z87.11 Personal history of peptic ulcer disease; Z82.49 Family history of ischemic heart disease and other diseases of the circulatory system
CPT/HCPCS: 43235; 82962; J2001; J2704

== ENCOUNTER 2018-05-02 18:18 | Inpatient (IN) | payer MEDICARE ==
[~2018-05-02] VITALS: Ht 182.9 cm; Wt 83.9 kg
[~2018-05-02 18:18] MED LIST changes: -IV RINGERS,LACTATED 1000ML 1,000 ML IV ONE; -IV RINGERS,LACTATED 1000ML 1,000 ML IV SCH; -LIDOCAINE 2% PF Vial for OR 5 ML VIAL. ONE; -PROPOFOL 20 ML IV ONE
[2018-05-02 19:51] LABS: BASO # 0.2 x10^3/uL (0.0-0.2); BASO % 2 % (0-3); EOS # 0.5 x10^3/uL (0.0-0.7); EOS % 5 % (0-3); HEMATOCRIT 27.5 % (39.0-53.0); HEMOGLOBIN 9.3 g/dL (13.0-17.5); LYMPH # 1.3 x10^3/uL (1.0-4.8); LYMPH % 13 % (24-48); MEAN CORPUSCULAR HEMOGLOBIN 30 pg (25-35); MEAN CORPUSCULAR HGB CONC 34 g/dL (31-37); MEAN CORPUSCULAR VOLUME 87 fL (79-100); MONO # 0.8 x10^3/uL (0.0-1.1); MONO % 8 % (0-9); NEUT # 7.6 x10^3uL (1.8-7.7); NEUT % 73 % (31-73); PLATELET COUNT 330 x10^3/uL (140-400); RED BLOOD COUNT 3.15 x10^6/uL (4.30-5.70); RED CELL DISTRIBUTION WIDTH 14.4 % (11.5-14.5); WHITE BLOOD COUNT 10.5 x10^3/uL (4.0-11.0)
[2018-05-02 19:58] LABS: CALCIUM 8.9 mg/dL (8.5-10.1); CREATININE 4.2 mg/dL (0.7-1.3); GFR 13.7; POTASSIUM 4.5 mmol/L (3.5-5.1)
[2018-05-02 20:05] LABS: ALBUMIN 3.1 g/dL (3.4-5.0); ALBUMIN/GLOBULIN RATIO 0.8 (1.0-1.7); TOTAL BILIRUBIN 0.2 mg/dL (0.2-1.0); TOTAL PROTEIN 7.2 g/dL (6.4-8.2)
--- NOTE | 2018-05-02 20:08 | PHYS DOC ---
Past Medical History Past Medical History: Other Additional Past Medical Histor: AAA, RENAL CYST Past Surgical History: No Surgical History Alcohol Use: Occasionally Drug Use: None Adult General Chief Complaint Chief Complaint: ABNORMAL LABS [facility] Patient is a 82 year old male presents to the ED complaining of abnormal lab values times. States in February he had a perforated duodenal ulcer. States he has been following up with her Dr. Brown (PCP) outpatient and has been having elevated kidney function levels. States he was called by Dr. Brown today to come to the ED because his last blood test was double the first one. Denies any symptoms at this time. Review of Systems Review of Systems Constitutional: Denies fever or chills [] Eyes: Denies change in visual acuity, redness, or eye pain [] HENT: Denies nasal congestion or sore throat [] Respiratory: Denies cough or shortness of breath [] Cardiovascular: No additional information not addressed in HPI [] GI: Denies n/v, abdominal pain, bloody stools or diarrhea [] : Denies dysuria or hematuria [] Musculoskeletal: Denies back pain or joint pain [] Integument: Denies rash or skin lesions [] Neurologic: Denies headache, focal weakness or sensory changes [] All other systems were reviewed and found to be within normal limits, except as documented in this note. Current Medications Current Medications Allergies Allergies Allergies Coded Allergies Type Severity Reaction Last Updated Verified No Known Drug Allergies 04/26/18 No Physical Exam Physical Exam Constitutional: Well developed, well nourished, no acute distress, non-toxic appearance. [] HENT: Normocephalic, atraumatic Neck: Normal range of motion, no tenderness, supple, no stridor. [] Cardiovascular:Heart rate regular rhythm, no murmur [] Lungs & Thorax: Bilateral breath sounds clear to auscultation [] Abdomen: Bowel sounds normal, soft, no tenderness, no masses, no pulsatile masses. [] Skin: Warm, dry, no erythema, no rash. [] Back: No tenderness, no CVA tenderness. [] Extremities: No tenderness, no cyanosis, no clubbing, ROM intact, no edema. [] Neurologic: Alert and oriented X 3, normal motor function, normal sensory function, no focal deficits noted. [] Psychologic: Affect normal, judgement normal, mood normal. [] Current Patient Data Vital Signs Vital Signs Date Time Temp Pulse Resp B/P (MAP) Pulse Ox O2 Delivery O2 Flow Rate FiO2 05/02/18 21:00 74 21 126/64 (84) 98 Room Air 05/02/18 19:08 98.2 98.2 Lab Values Laboratory Tests Test 05/02/18 19:15 05/02/18 20:57 White Blood Count 10.5 x10^3/uL (4.0-11.0) Red Blood Count 3.15 x10^6/uL (4.30-5.70) L Hemoglobin 9.3 g/dL (13.0-17.5) L Hematocrit 27.5 % (39.0-53.0) L Mean Corpuscular Volume 87 fL (79-100) Mean Corpuscular Hemoglobin 30 pg (25-35) Mean Corpuscular Hemoglobin Concent 34 g/dL (31-37) Red Cell Distribution Width 14.4 % (11.5-14.5) Platelet Count 330 x10^3/uL (140-400) Neutrophils (%) (Auto) 73 % (31-73) Lymphocytes (%) (Auto) 13 % (24-48) L Monocytes (%) (Auto) 8 % (0-9) Eosinophils (%) (Auto) 5 % (0-3) H Basophils (%) (Auto) 2 % (0-3) Neutrophils # (Auto) 7.6 x10^3uL (1.8-7.7) Lymphocytes # (Auto) 1.3 x10^3/uL (1.0-4.8) Monocytes # (Auto) 0.8 x10^3/uL (0.0-1.1) Eosinophils # (Auto) 0.5 x10^3/uL (0.0-0.7) Basophils # (Auto) 0.2 x10^3/uL (0.0-0.2) Sodium Level 138 mmol/L (136-145) Potassium Level 4.5 mmol/L (3.5-5.1) Chloride Level 106 mmol/L (98-107) Carbon Dioxide Level 25 mmol/L (21-32) Anion Gap 7 (6-14) Blood Urea Nitrogen 63 mg/dL (8-26) H Creatinine 4.2 mg/dL (0.7-1.3) H Estimated GFR (Cockcroft-Gault) 13.7 BUN/Creatinine Ratio 15 (6-20) Glucose Level 115 mg/dL (70-99) H Calcium Level 8.9 mg/dL (8.5-10.1) Total Bilirubin 0.2 mg/dL (0.2-1.0) Aspartate Amino Transferase (AST) 13 U/L (15-37) L Alanine Aminotransferase (ALT) 22 U/L (16-63) Alkaline Phosphatase 66 U/L (46-116) Total Protein 7.2 g/dL (6.4-8.2) Albumin 3.1 g/dL (3.4-5.0) L Albumin/Globulin Ratio 0.8 (1.0-1.7) L Urine Collection Type Unknown Urine Color Yellow Urine Clarity Clear Urine pH 6.0 Urine Specific [place] 1.010 Urine Protein Negative mg/dL (NEG-TRACE) Urine Glucose (UA) Negative mg/dL (NEG) Urine Ketones (Stick) Negative mg/dL (NEG) Urine Blood Negative (NEG) Urine Nitrite Negative (NEG) Urine Bilirubin Negative (NEG) Urine Urobilinogen Dipstick 0.2 mg/dL (0.2 mg/dL) Urine Leukocyte Esterase Moderate (NEG) Urine RBC Occ /HPF (0-2) Urine WBC 20-40 /HPF (0-4) Urine Bacteria 0 /HPF (0-FEW) Laboratory Tests 05/02/18 19:15 Laboratory Tests 05/02/18 19:15 EKG EKG [] Radiology/Procedures Radiology/Procedures [] Course & Med Decision Making Course & Med Decision Making Pertinent Labs and Imaging studies reviewed. (See chart for details) Will give 1 liter of fluids in the ED. Patient resting comfortably. No complaints at this time. []Discussed case with Doctor covering for patients PCP (Kevin), Dr. Carvalho. Agrees to admission and further management patient. Patient stable for admission. Dragon Disclaimer Dragon Disclaimer This electronic medical record was generated, in whole or in part, using a voice recognition dictation system. Departure Departure Impression: Primary Impression: JUAN JOSE (acute kidney injury) Disposition: ADMITTED INPATIENT Admitting Physician: Papa Brown Condition: STABLE Referrals: PAPA BROWN MD (PCP) KARY CH May 02, 2018 20:08
[2018-05-02 21:11] LABS: BILIRUBIN,URINE NEGATIVE (NEG); CLARITY,URINE CLEAR; COLOR,URINE YELLOW; NITRITE,URINE NEGATIVE (NEG); PROTEIN,URINE NEGATIVE (NEG-TRACE); UROBILINOGEN,URINE 0.2 mg/dL (0.2 mg/dL)
[2018-05-02] MEDS ORDERED: fentaNYL PF VIAL 100 MCG/2 ML VIAL IV PRN (21:15)
[2018-05-02] MEDS ORDERED: ACETAMINOPHEN 325 MG TABLET. PO PRN (21:15)
[2018-05-02] MEDS ORDERED: ONDANSETRON PF 4 MG/2 ML VIAL. IV PRN (21:15)
[2018-05-02] MEDS ORDERED: IV NORMAL SALINE 1000ML BAG 1,000 ML IV ONE (21:15)
[2018-05-02 21:16] LABS: BACTERIA,URINE 0 /HPF (0-FEW); RBC,URINE OCC /HPF (0-2); WBC,URINE 20-40 /HPF (0-4)
[2018-05-02] MEDS ORDERED: FINA5TAB4 PO (22:52)
[2018-05-02] MEDS ORDERED: TAMS0.4C97 PO (22:52)
[2018-05-02 23:00] VITALS: BP 127/70
[2018-05-02] MEDS ORDERED: MULT-246 PO (23:00)
[2018-05-02] MEDS ORDERED: ONDANSETRON ODT 4 MG TAB.RAPDIS. PO PRN (23:15)
[2018-05-02] MEDS: FINASTERIDE 5 MG TABLET. PO SCH (23:23)
[2018-05-02] MEDS: TAMSULOSIN 0.4 MG CAP.ER.24H. PO SCH (23:23)
[2018-05-02] MEDS: IV NORMAL SALINE 1000ML BAG 1,000 ML IV SCH (23:24)
[2018-05-03 03:00] VITALS: BP 133/82
[2018-05-03 07:00] VITALS: BP 115/63
[2018-05-03] MEDS ORDERED: PANTOPRAZOLE 40 MG TABLET.DR. PO SCH (07:30)
[2018-05-03 07:39] LABS: BASO # 0.2 x10^3/uL (0.0-0.2); BASO % 2 % (0-3); EOS # 0.6 x10^3/uL (0.0-0.7); EOS % 8 % (0-3); HEMATOCRIT 24.9 % (39.0-53.0); HEMOGLOBIN 8.4 g/dL (13.0-17.5); LYMPH # 1.1 x10^3/uL (1.0-4.8); LYMPH % 13 % (24-48); MEAN CORPUSCULAR HEMOGLOBIN 29 pg (25-35); MEAN CORPUSCULAR HGB CONC 34 g/dL (31-37); MEAN CORPUSCULAR VOLUME 87 fL (79-100); MONO # 0.7 x10^3/uL (0.0-1.1); MONO % 9 % (0-9); NEUT # 5.8 x10^3uL (1.8-7.7); NEUT % 69 % (31-73); PLATELET COUNT 289 x10^3/uL (140-400); RED BLOOD COUNT 2.86 x10^6/uL (4.30-5.70); WHITE BLOOD COUNT 8.4 x10^3/uL (4.0-11.0)
[2018-05-03 08:06] LABS: ALBUMIN 2.5 g/dL (3.4-5.0); ALBUMIN/GLOBULIN RATIO 0.7 (1.0-1.7); CALCIUM 8.2 mg/dL (8.5-10.1); CREATININE 3.8 mg/dL (0.7-1.3); GFR 15.4; POTASSIUM 4.2 mmol/L (3.5-5.1); TOTAL BILIRUBIN 0.2 mg/dL (0.2-1.0)
--- NOTE | 2018-05-03 08:27 | PDOC ---
PROGRESS NOTES Subjective Subjective Patient without complaint, denies pain. Reports good urine output. Objective Objective Vital Signs Date Time Temp Pulse Resp B/P (MAP) Pulse Ox O2 Delivery O2 Flow Rate FiO2 05/03/18 03:00 98.9 86 18 133/82 (99) 98 Room Air 98.9 Intake and Output 05/03/18 07:00 Intake Total 120 ml Output Total 425 ml Balance -305 ml Intake Oral 120 ml Output Urine Total 425 ml Physical Exam Abdomen: Normal bowel sounds, Soft, No tenderness Heart: Regular rate Extremities: No edema General: Alert, Oriented X3, No acute distress Lungs: Clear to auscultation Assessment Assessment Problems Medical Problems: (1) JUAN JOSE (acute kidney injury) Status: Acute Plan Plan of Care 1. Acute renal failure with history of CKD III - patient's renal function has gradually worsened over the past two weeks on lab at our office. Creatinine was 2.27 on 04/19/18 then increased to 4.29 on 05/01/18. No recent illness or dehydration. No new meds, no NSAID's. No pain to suggest renal stones or infection. Patient reports good urine output. Renal u/s ordered, continue IVF, Nephrology consult pending. 2. Hx HTN - patient had been on Lisinopril/HCTZ but stopped these about a week ago when he noticed his BP getting low at home. Presently normotensive without meds. 3. DM2 - this has been diet-controlled for him for awhile, last A1C was 6.1 ADA diet ordered. 4. Chronic anemia - thought to be due, at least in part, to his CKD. Recent lab at our office did show decreased iron but normal ferritin. B12 was WNL. 5. Hx perforated duodenal ulcer - stable, continue Protonix once daily. Avoid ASA. 6. BPH - patient does report nocturia, which is chronic for him. Continue home meds. Check PVR. Comment Review of Relevant I have reviewed the following items hunter (where applicable) has been applied. Labs Laboratory Tests Test 05/02/18 19:15 05/02/18 20:57 05/03/18 06:00 05/03/18 06:50 White Blood Count 10.5 x10^3/uL (4.0-11.0) 8.4 x10^3/uL (4.0-11.0) Red Blood Count 3.15 x10^6/uL (4.30-5.70) 2.86 x10^6/uL (4.30-5.70) Hemoglobin 9.3 g/dL (13.0-17.5) 8.4 g/dL (13.0-17.5) Hematocrit 27.5 % (39.0-53.0) 24.9 % (39.0-53.0) Mean Corpuscular Volume 87 fL (79-100) 87 fL (79-100) Mean Corpuscular Hemoglobin 30 pg (25-35) 29 pg (25-35) Mean Corpuscular Hemoglobin Concent 34 g/dL (31-37) 34 g/dL (31-37) Red Cell Distribution Width 14.4 % (11.5-14.5) 14.0 % (11.5-14.5) Platelet Count 330 x10^3/uL (140-400) 289 x10^3/uL (140-400) Neutrophils (%) (Auto) 73 % (31-73) 69 % (31-73) Lymphocytes (%) (Auto) 13 % (24-48) 13 % (24-48) Monocytes (%) (Auto) 8 % (0-9) 9 % (0-9) Eosinophils (%) (Auto) 5 % (0-3) 8 % (0-3) Basophils (%) (Auto) 2 % (0-3) 2 % (0-3) Neutrophils # (Auto) 7.6 x10^3uL (1.8-7.7) 5.8 x10^3uL (1.8-7.7) Lymphocytes # (Auto) 1.3 x10^3/uL (1.0-4.8) 1.1 x10^3/uL (1.0-4.8) Monocytes # (Auto) 0.8 x10^3/uL (0.0-1.1) 0.7 x10^3/uL (0.0-1.1) Eosinophils # (Auto) 0.5 x10^3/uL (0.0-0.7) 0.6 x10^3/uL (0.0-0.7) Basophils # (Auto) 0.2 x10^3/uL (0.0-0.2) 0.2 x10^3/uL (0.0-0.2) Sodium Level 138 mmol/L (136-145) 142 mmol/L (136-145) Potassium Level 4.5 mmol/L (3.5-5.1) 4.2 mmol/L (3.5-5.1) Chloride Level 106 mmol/L (98-107) 110 mmol/L (98-107) Carbon Dioxide Level 25 mmol/L (21-32) 24 mmol/L (21-32) Anion Gap 7 (6-14) 8 (6-14) Blood Urea Nitrogen 63 mg/dL (8-26) 56 mg/dL (8-26) Creatinine 4.2 mg/dL (0.7-1.3) 3.8 mg/dL (0.7-1.3) Estimated GFR (Cockcroft-Gault) 13.7 15.4 BUN/Creatinine Ratio 15 (6-20) 15 (6-20) Glucose Level 115 mg/dL (70-99) 111 mg/dL (70-99) Calcium Level 8.9 mg/dL (8.5-10.1) 8.2 mg/dL (8.5-10.1) Total Bilirubin 0.2 mg/dL (0.2-1.0) 0.2 mg/dL (0.2-1.0) Aspartate Amino Transf (AST/SGOT) 13 U/L (15-37) 11 U/L (15-37) Alanine Aminotransferase (ALT/SGPT) 22 U/L (16-63) 22 U/L (16-63) Alkaline Phosphatase 66 U/L (46-116) 58 U/L (46-116) Total Protein 7.2 g/dL (6.4-8.2) 6.0 g/dL (6.4-8.2) Albumin 3.1 g/dL (3.4-5.0) 2.5 g/dL (3.4-5.0) Albumin/Globulin Ratio 0.8 (1.0-1.7) 0.7 (1.0-1.7) Urine Collection Type Unknown Urine Color Yellow Urine Clarity Clear Urine pH 6.0 Urine Specific [place] 1.010 Urine Protein Negative mg/dL (NEG-TRACE) Urine Glucose (UA) Negative mg/dL (NEG) Urine Ketones (Stick) Negative mg/dL (NEG) Urine Blood Negative (NEG) Urine Nitrite Negative (NEG) Urine Bilirubin Negative (NEG) Urine Urobilinogen Dipstick 0.2 mg/dL (0.2 mg/dL) Urine Leukocyte Esterase Moderate (NEG) Urine RBC Occ /HPF (0-2) Urine WBC 20-40 /HPF (0-4) Urine Bacteria 0 /HPF (0-FEW) Laboratory Tests Test 05/02/18 19:15 05/02/18 20:57 05/03/18 06:00 05/03/18 06:50 White Blood Count 10.5 x10^3/uL (4.0-11.0) 8.4 x10^3/uL (4.0-11.0) Red Blood Count 3.15 x10^6/uL (4.30-5.70) 2.86 x10^6/uL (4.30-5.70) Hemoglobin 9.3 g/dL (13.0-17.5) 8.4 g/dL (13.0-17.5) Hematocrit 27.5 % (39.0-53.0) 24.9 % (39.0-53.0) Mean Corpuscular Volume 87 fL (79-100) 87 fL (79-100) Mean Corpuscular Hemoglobin 30 pg (25-35) 29 pg (25-35) Mean Corpuscular Hemoglobin Concent 34 g/dL (31-37) 34 g/dL (31-37) Red Cell Distribution Width 14.4 % (11.5-14.5) 14.0 % (11.5-14.5) Platelet Count 330 x10^3/uL (140-400) 289 x10^3/uL (140-400) Neutrophils (%) (Auto) 73 % (31-73) 69 % (31-73) Lymphocytes (%) (Auto) 13 % (24-48) 13 % (24-48) Monocytes (%) (Auto) 8 % (0-9) 9 % (0-9) Eosinophils (%) (Auto) 5 % (0-3) 8 % (0-3) Basophils (%) (Auto) 2 % (0-3) 2 % (0-3) Neutrophils # (Auto) 7.6 x10^3uL (1.8-7.7) 5.8 x10^3uL (1.8-7.7) Lymphocytes # (Auto) 1.3 x10^3/uL (1.0-4.8) 1.1 x10^3/uL (1.0-4.8) Monocytes # (Auto) 0.8 x10^3/uL (0.0-1.1) 0.7 x10^3/uL (0.0-1.1) Eosinophils # (Auto) 0.5 x10^3/uL (0.0-0.7) 0.6 x10^3/uL (0.0-0.7) Basophils # (Auto) 0.2 x10^3/uL (0.0-0.2) 0.2 x10^3/uL (0.0-0.2) Sodium Level 138 mmol/L (136-145) 142 mmol/L (136-145) Potassium Level 4.5 mmol/L (3.5-5.1) 4.2 mmol/L (3.5-5.1) Chloride Level 106 mmol/L (98-107) 110 mmol/L (98-107) Carbon Dioxide Level 25 mmol/L (21-32) 24 mmol/L (21-32) Anion Gap 7 (6-14) 8 (6-14) Blood Urea Nitrogen 63 mg/dL (8-26) 56 mg/dL (8-26) Creatinine 4.2 mg/dL (0.7-1.3) 3.8 mg/dL (0.7-1.3) Estimated GFR (Cockcroft-Gault) 13.7 15.4 BUN/Creatinine Ratio 15 (6-20) 15 (6-20) Glucose Level 115 mg/dL (70-99) 111 mg/dL (70-99) Calcium Level 8.9 mg/dL (8.5-10.1) 8.2 mg/dL (8.5-10.1) Total Bilirubin 0.2 mg/dL (0.2-1.0) 0.2 mg/dL (0.2-1.0) Aspartate Amino Transf (AST/SGOT) 13 U/L (15-37) 11 U/L (15-37) Alanine Aminotransferase (ALT/SGPT) 22 U/L (16-63) 22 U/L (16-63) Alkaline Phosphatase 66 U/L (46-116) 58 U/L (46-116) Total Protein 7.2 g/dL (6.4-8.2) 6.0 g/dL (6.4-8.2) Albumin 3.1 g/dL (3.4-5.0) 2.5 g/dL (3.4-5.0) Albumin/Globulin Ratio 0.8 (1.0-1.7) 0.7 (1.0-1.7) Urine Collection Type Unknown Urine Color Yellow Urine Clarity Clear Urine pH 6.0 Urine Specific [place] 1.010 Urine Protein Negative mg/dL (NEG-TRACE) Urine Glucose (UA) Negative mg/dL (NEG) Urine Ketones (Stick) Negative mg/dL (NEG) Urine Blood Negative (NEG) Urine Nitrite Negative (NEG) Urine Bilirubin Negative (NEG) Urine Urobilinogen Dipstick 0.2 mg/dL (0.2 mg/dL) Urine Leukocyte Esterase Moderate (NEG) Urine RBC Occ /HPF (0-2) Urine WBC 20-40 /HPF (0-4) Urine Bacteria 0 /HPF (0-FEW) Medications Current Medications Sodium Chloride 1,000 ml @ 1,000 mls/hr 1X ONCE IV Last administered on at 21:09; Start 05/02/18 at 21:15; Stop 05/02/18 at 22:14; Status DC Ondansetron HCl (Zofran) 4 mg PRN Q8HRS PRN IV NAUSEA/VOMITING; Start 05/02/18 at 21:15; Stop 05/03/18 at 21:14 Fentanyl Citrate (Fentanyl 2ml Vial) 50 mcg PRN Q1HR PRN IV PAIN; Start at 21:15; Stop 05/03/18 at 21:14 Acetaminophen (Tylenol) 650 mg PRN Q4HRS PRN PO FEVER; Start 05/02/18 at 21:15 ; Stop 05/03/18 at 21:14 Finasteride (Proscar) 5 mg HS PO Last administered on 05/02/18at 23:23; Start at 23:30 Ondansetron HCl (Zofran Odt) 4 mg PRN Q4HRS PRN PO VOMITING 1ST CHOICE; Start 05/02/18 at 23:15 Tamsulosin HCl (Flomax) 0.4 mg HS PO Last administered on 05/02/18at 23:23; Start 05/02/18 at 23:30 Multivitamins (Thera M Plus) 1 tab DAILY PO ; Start 05/03/18 at 09:00 Fish Oil (Fish Oil) 1,000 mg DAILY PO ; Start 05/03/18 at 09:00 Simvastatin (Zocor) 20 mg HS PO ; Start 05/03/18 at 21:00 Pantoprazole Sodium (Protonix) 40 mg BIDAC PO ; Start 05/03/18 at 07:30; Stop at 07:30; Status DC Sodium Chloride 1,000 ml @ 100 mls/hr Q10H IV Last administered on 05/02/18at 23:24; Start 05/02/18 at 23:30 Pantoprazole Sodium (Protonix) 40 mg DAILYBFRSUP PO ; Start 05/03/18 at 17:00 Active Scripts Active [Pantoprazole] 40 MG Tablet. 40 Mg PO BIDAC Zofran Odt (Ondansetron) 4 Mg Tab.rapdis 1 Tab SL Q4HRS PRN Reported Multi-Vitamin Daily (Multivitamin) 1 Each Tablet 1 Each PO DAILY Finasteride 5 Mg Tablet 1 Tab PO HS Flomax (Tamsulosin Hcl) 0.4 Mg Cap.er.24h 1 Cap PO HS Fish Oil [place]-3 EC 1,200 mg ([place]-3/Dha/Epa/Fish Oil) 1 Each Capsule. 1 Each PO DAILY Simvastatin 20 Mg Tablet 1 Tab PO DAILY Vitals/I & O Vital Sign - Last 24 Hours 05/02/18 05/02/18 05/02/18 05/02/18 19:08 19:30 20:00 20:30 Temp 98.2 98.2 Pulse 86 88 78 81 Resp 20 B/P (MAP) 129/69 (89) 118/62 (80) 109/63 (78) 116/67 (83) Pulse Ox 97 97 97 98 O2 Delivery Room Air Room Air Room Air Room Air 05/02/18 05/02/18 05/02/18 05/03/18 21:00 21:30 23:00 03:00 Temp 98.0 98.9 98.0 98.9 Pulse 74 80 81 86 Resp 21 24 18 18 B/P (MAP) 126/64 (84) 126/61 (82) 127/70 (89) 133/82 (99) Pulse Ox 98 98 98 98 O2 Delivery Room Air Room Air Room Air Room Air Intake and Output 05/02/18 05/02/18 05/03/18 15:00 23:00 07:00 Intake Total 120 ml Output Total 425 ml Balance 120 ml -425 ml ADITHYA ABDALLA MD May 03, 2018 08:27
[2018-05-03] MEDS: MULTIVITAMIN with MINERAL TABLET. PO SCH (08:39)
[2018-05-03] MEDS: OMEGA-3 FATTY ACIDS/FISH OIL 1,000 MG CAPSULE. PO SCH (08:39)
[2018-05-03] MEDS: IV NORMAL SALINE 1000ML BAG 1,000 ML IV SCH ×2 (08:41→21:03)
--- NOTE | 2018-05-03 09:24 | HP ---
ADMIT DATE: 05/02/2018 CHIEF COMPLAINT: Abnormal lab. HISTORY OF PRESENT ILLNESS: The patient is an 82-year-old male with a history of chronic kidney disease stage 3. [address] Brown in our office on the day prior to admission reporting fatigue and low blood pressure. He has a history of hypertension and has been on lisinopril/hydrochlorothiazide for a long time. He had stopped taking it several days previous because his blood pressure had been so low on it. He also reported feeling unusually tired. Dr. Brown ordered some lab for further evaluation. He received the results yesterday and they showed the patient to be in acute renal failure with a creatinine of 4.29 and a GFR of 12. Dr. Brown contacted the patient and advised him to present to the Emergency Room for further evaluation and treatment. The patient did this. Lab was repeated, which continued to show an elevated creatinine at 4.2 and he was admitted for further care. PAST MEDICAL HISTORY: Chronic kidney disease stage 3; hypertension; diabetes mellitus type 2, diet controlled; BPH; chronic anemia and perforated duodenal ulcer, 03/04. PAST SURGICAL HISTORY: Laparoscopic repair of perforated duodenal ulcer, 03/04; cataract removal and vasectomy. ALLERGIES: The patient has no known drug allergies. HOME MEDICATIONS: Finasteride 5 mg daily, Flomax 0.4 mg daily, pantoprazole 40 mg daily, simvastatin 20 mg daily and multivitamin. The patient had been on lisinopril/hydrochlorothiazide 20/12.5, but has not taken this for about one week. FAMILY HISTORY: Noncontributory. SOCIAL HISTORY: The patient is and lives at home with his . He smoked cigarettes, but quit smoking cigarettes in 1986. He does not drink alcohol to excess. REVIEW OF SYSTEMS: The patient denies fever or chills. He denies cough or shortness of breath. He denies chest pain or palpitations. He denies abdominal pain, nausea, vomiting or problems with his bowels. He denies dysuria. He reports that he has had a good urine output and has to get up several times at night to urinate, which is usual for him. He has not taken any anti-inflammatory medications recently. He denies lower extremity edema. He denies dysuria or unusual back pain. PHYSICAL EXAMINATION: GENERAL: The patient is alert and oriented x 3, resting comfortably in bed in no acute distress. HEENT: PERRL, EOMI, sclerae clear. Oropharynx: Mucous membranes moist. NECK: Supple, without lymphadenopathy. CHEST: Clear to auscultation. CARDIOVASCULAR: Regular rhythm without murmur. ABDOMEN: Soft, nontender, normoactive bowel sounds are present. EXTREMITIES: Without edema. ASSESSMENT AND PLAN: 1. Acute renal failure with history of chronic kidney disease stage 3. The patient's renal function has gradually worsened over the past 2 weeks on lab in our office. His creatinine was 2.27 on 04/19/2018 and then increased to 4.29 on 05/01/2018 as in the HPI. The patient has not had a recent illness or dehydration. He has not had any new medications and denies taking any NSAIDs. He has no pain to suggest renal stones or infection. He reports that he has continued to drink plenty of water daily and has a good urine output. Therefore, the cause of his renal failure is unclear at this time. A renal ultrasound has been ordered. He has been on IV fluid overnight and has had an improvement in his creatinine to 3.8. A consult with Nephrology is pending. 2. History of hypertension. The patient stopped his medication about a week ago. He is presently normotensive without medication. We will continue to follow this. 3. Diabetes mellitus type 2. This has been diet controlled for him for some time. His last A1c was 6.1. An ADA diet is ordered. Fingersticks and sliding scale are not indicated at this time. 4. Chronic anemia. This is thought to be due at least in part to his chronic kidney disease. Recent lab at our office did show decreased serum iron, but a normal ferritin and normal B12. We will continue to follow this. 5. History of perforated duodenal ulcer. The patient has been stable since his surgery in February. We will continue Protonix once daily and avoid aspirin. 6. Benign prostatic hypertrophy. The patient does report chronic nocturia. We will continue his home medications and check a postvoid residual. ADITHYA ABDALLA MD DR: ALFRED/kisha JOB#: [id number] / [id number] DAM[place]N
--- NOTE | 2018-05-03 10:43 | PDOC2 ---
CONSULT Date of Consult Date of Consult DATE: 05/03/18 TIME: 10:37 Reason for Consult Reason for Consult: JUAN JOSE Referring Physician Referring Physician: XU Identification/Chief Complaint Chief Complaint DIZZY AND ABNORMAL LABS Source Source: Chart review, Patient History of Present Illness Reason for Visit: THIS IS AN 82 YR OLD WITH JUAN JOSE. OP LABS SHOWED A CR OF ABOUT 4.2. CR HAS BEEN PROGRESSIVELY RISING LAST COUPLE WEEKS. HAS CKD STAGE 3 FROM HTN WITH CR OF ABOUT 1.5. HAD JUAN JOSE IN FEBRUARY AFTER SOME EXPOSURE TO CONTRAST BUT RECOVERED WITH BASELINE CR OF ABOUT 1.5 AT TIME OF D/C IN FEBRUARY. NO NEPHROTOXIN EXPOSURE RECENTLY NOTED. UO GOOD AND NO PROBLEMS EMPTYING HIS BLADDER Past Medical History Cardiovascular: HTN, Other Renal/: Chronic renal insuff Endocrine: Diabetes Family History Family History: Hypertension, Other Social History Social History: Parent ALCOHOL: rare Drugs: None Lives: with Family Current Problem List Problem List Problems Medical Problems: (1) JUAN JOSE (acute kidney injury) Status: Acute Current Medications Current Medications Current Medications Sodium Chloride 1,000 ml @ 1,000 mls/hr 1X ONCE IV Last administered on at 21:09; Start 05/02/18 at 21:15; Stop 05/02/18 at 22:14; Status DC Ondansetron HCl (Zofran) 4 mg PRN Q8HRS PRN IV NAUSEA/VOMITING; Start 05/02/18 at 21:15; Stop 05/03/18 at 21:14 Fentanyl Citrate (Fentanyl 2ml Vial) 50 mcg PRN Q1HR PRN IV PAIN; Start at 21:15; Stop 05/03/18 at 08:16; Status DC Acetaminophen (Tylenol) 650 mg PRN Q4HRS PRN PO FEVER; Start 05/02/18 at 21:15 ; Stop 05/03/18 at 21:14 Finasteride (Proscar) 5 mg HS PO Last administered on 05/02/18at 23:23; Start at 23:30 Ondansetron HCl (Zofran Odt) 4 mg PRN Q4HRS PRN PO VOMITING 1ST CHOICE; Start 05/02/18 at 23:15 Tamsulosin HCl (Flomax) 0.4 mg HS PO Last administered on 05/02/18at 23:23; Start 05/02/18 at 23:30 Multivitamins (Thera M Plus) 1 tab DAILY PO Last administered on 05/03/18at 08: 39; Start 05/03/18 at 09:00 Fish Oil (Fish Oil) 1,000 mg DAILY PO Last administered on 05/03/18at 08:39; Start 05/03/18 at 09:00 Simvastatin (Zocor) 20 mg HS PO ; Start 05/03/18 at 21:00 Pantoprazole Sodium (Protonix) 40 mg BIDAC PO ; Start 05/03/18 at 07:30; Stop at 07:30; Status DC Sodium Chloride 1,000 ml @ 100 mls/hr Q10H IV Last administered on 05/03/18at 08:41; Start 05/02/18 at 23:30 Pantoprazole Sodium (Protonix) 40 mg DAILYBFRSUP PO ; Start 05/03/18 at 17:00 Active Scripts Active [Pantoprazole] 40 MG Tablet.dr 40 Mg PO BIDAC Zofran Odt (Ondansetron) 4 Mg Tab.rapdis 1 Tab SL Q4HRS PRN Reported Multi-Vitamin Daily (Multivitamin) 1 Each Tablet 1 Each PO DAILY Finasteride 5 Mg Tablet 1 Tab PO HS Flomax (Tamsulosin Hcl) 0.4 Mg Cap.er.24h 1 Cap PO HS Fish Oil [place]-3 EC 1,200 mg ([place]-3/Dha/Epa/Fish Oil) 1 Each Capsule.dr 1 Each PO DAILY Simvastatin 20 Mg Tablet 1 Tab PO DAILY Allergies Allergies: Coded Allergies: No Known Drug Allergies (Unverified , 04/26/18) ROS General: YES: Fatigue, Malaise PSYCHOLOGICAL ROS: YES: Anxiety Eyes: Yes Decreased vision HEENT: YES: [facility] ALLERGY AND IMMUNOLOGY: YES: Seasonal Allergies Respiratory: YES: Cough Cardiovascular: yes Lt [place] Gastrointestinal: Yes Constipation Genitourinary: YES Frequency Musculoskeletal: Yes Muscular Weakness Neurological: Yes Weakness Skin: Yes Dry Skin Physical Exam General: Alert, Oriented X3, Cooperative, No acute distress HEENT: Atraumatic, PERRLA Lungs: Clear to auscultation Heart: Regular rate, Normal S1, Normal S2 Abdomen: Normal bowel sounds, Soft, No tenderness Skin: No breakdown Neuro: Normal speech, Cranial nerves 3-12 NL Psych/Mental Status: Mental status NL, Mood NL MUSCULOSKELETAL: No deformity, No swelling Vitals VITALS Vital Signs Date Time Temp Pulse Resp B/P (MAP) Pulse Ox O2 Delivery O2 Flow Rate FiO2 05/03/18 07:00 97.9 79 16 115/63 (80) 95 Room Air 97.9 Labs Labs Laboratory Tests Test 05/02/18 19:15 05/02/18 20:57 05/03/18 06:00 05/03/18 06:50 White Blood Count 10.5 x10^3/uL (4.0-11.0) 8.4 x10^3/uL (4.0-11.0) Red Blood Count 3.15 x10^6/uL (4.30-5.70) 2.86 x10^6/uL (4.30-5.70) Hemoglobin 9.3 g/dL (13.0-17.5) 8.4 g/dL (13.0-17.5) Hematocrit 27.5 % (39.0-53.0) 24.9 % (39.0-53.0) Mean Corpuscular Volume 87 fL (79-100) 87 fL (79-100) Mean Corpuscular Hemoglobin 30 pg (25-35) 29 pg (25-35) Mean Corpuscular Hemoglobin Concent 34 g/dL (31-37) 34 g/dL (31-37) Red Cell Distribution Width 14.4 % (11.5-14.5) 14.0 % (11.5-14.5) Platelet Count 330 x10^3/uL (140-400) 289 x10^3/uL (140-400) Neutrophils (%) (Auto) 73 % (31-73) 69 % (31-73) Lymphocytes (%) (Auto) 13 % (24-48) 13 % (24-48) Monocytes (%) (Auto) 8 % (0-9) 9 % (0-9) Eosinophils (%) (Auto) 5 % (0-3) 8 % (0-3) Basophils (%) (Auto) 2 % (0-3) 2 % (0-3) Neutrophils # (Auto) 7.6 x10^3uL (1.8-7.7) 5.8 x10^3uL (1.8-7.7) Lymphocytes # (Auto) 1.3 x10^3/uL (1.0-4.8) 1.1 x10^3/uL (1.0-4.8) Monocytes # (Auto) 0.8 x10^3/uL (0.0-1.1) 0.7 x10^3/uL (0.0-1.1) Eosinophils # (Auto) 0.5 x10^3/uL (0.0-0.7) 0.6 x10^3/uL (0.0-0.7) Basophils # (Auto) 0.2 x10^3/uL (0.0-0.2) 0.2 x10^3/uL (0.0-0.2) Sodium Level 138 mmol/L (136-145) 142 mmol/L (136-145) Potassium Level 4.5 mmol/L (3.5-5.1) 4.2 mmol/L (3.5-5.1) Chloride Level 106 mmol/L (98-107) 110 mmol/L (98-107) Carbon Dioxide Level 25 mmol/L (21-32) 24 mmol/L (21-32) Anion Gap 7 (6-14) 8 (6-14) Blood Urea Nitrogen 63 mg/dL (8-26) 56 mg/dL (8-26) Creatinine 4.2 mg/dL (0.7-1.3) 3.8 mg/dL (0.7-1.3) Estimated GFR (Cockcroft-Gault) 13.7 15.4 BUN/Creatinine Ratio 15 (6-20) 15 (6-20) Glucose Level 115 mg/dL (70-99) 111 mg/dL (70-99) Calcium Level 8.9 mg/dL (8.5-10.1) 8.2 mg/dL (8.5-10.1) Total Bilirubin 0.2 mg/dL (0.2-1.0) 0.2 mg/dL (0.2-1.0) Aspartate Amino Transf (AST/SGOT) 13 U/L (15-37) 11 U/L (15-37) Alanine Aminotransferase (ALT/SGPT) 22 U/L (16-63) 22 U/L (16-63) Alkaline Phosphatase 66 U/L (46-116) 58 U/L (46-116) Total Protein 7.2 g/dL (6.4-8.2) 6.0 g/dL (6.4-8.2) Albumin 3.1 g/dL (3.4-5.0) 2.5 g/dL (3.4-5.0) Albumin/Globulin Ratio 0.8 (1.0-1.7) 0.7 (1.0-1.7) Urine Collection Type Unknown Urine Color Yellow Urine Clarity Clear Urine pH 6.0 Urine Specific [place] 1.010 Urine Protein Negative mg/dL (NEG-TRACE) Urine Glucose (UA) Negative mg/dL (NEG) Urine Ketones (Stick) Negative mg/dL (NEG) Urine Blood Negative (NEG) Urine Nitrite Negative (NEG) Urine Bilirubin Negative (NEG) Urine Urobilinogen Dipstick 0.2 mg/dL (0.2 mg/dL) Urine Leukocyte Esterase Moderate (NEG) Urine RBC Occ /HPF (0-2) Urine WBC 20-40 /HPF (0-4) Urine Bacteria 0 /HPF (0-FEW) Laboratory Tests Test 05/02/18 19:15 05/02/18 20:57 05/03/18 06:00 05/03/18 06:50 White Blood Count 10.5 x10^3/uL (4.0-11.0) 8.4 x10^3/uL (4.0-11.0) Red Blood Count 3.15 x10^6/uL (4.30-5.70) 2.86 x10^6/uL (4.30-5.70) Hemoglobin 9.3 g/dL (13.0-17.5) 8.4 g/dL (13.0-17.5) Hematocrit 27.5 % (39.0-53.0) 24.9 % (39.0-53.0) Mean Corpuscular Volume 87 fL (79-100) 87 fL (79-100) Mean Corpuscular Hemoglobin 30 pg (25-35) 29 pg (25-35) Mean Corpuscular Hemoglobin Concent 34 g/dL (31-37) 34 g/dL (31-37) Red Cell Distribution Width 14.4 % (11.5-14.5) 14.0 % (11.5-14.5) Platelet Count 330 x10^3/uL (140-400) 289 x10^3/uL (140-400) Neutrophils (%) (Auto) 73 % (31-73) 69 % (31-73) Lymphocytes (%) (Auto) 13 % (24-48) 13 % (24-48) Monocytes (%) (Auto) 8 % (0-9) 9 % (0-9) Eosinophils (%) (Auto) 5 % (0-3) 8 % (0-3) Basophils (%) (Auto) 2 % (0-3) 2 % (0-3) Neutrophils # (Auto) 7.6 x10^3uL (1.8-7.7) 5.8 x10^3uL (1.8-7.7) Lymphocytes # (Auto) 1.3 x10^3/uL (1.0-4.8) 1.1 x10^3/uL (1.0-4.8) Monocytes # (Auto) 0.8 x10^3/uL (0.0-1.1) 0.7 x10^3/uL (0.0-1.1) Eosinophils # (Auto) 0.5 x10^3/uL (0.0-0.7) 0.6 x10^3/uL (0.0-0.7) Basophils # (Auto) 0.2 x10^3/uL (0.0-0.2) 0.2 x10^3/uL (0.0-0.2) Sodium Level 138 mmol/L (136-145) 142 mmol/L (136-145) Potassium Level 4.5 mmol/L (3.5-5.1) 4.2 mmol/L (3.5-5.1) Chloride Level 106 mmol/L (98-107) 110 mmol/L (98-107) Carbon Dioxide Level 25 mmol/L (21-32) 24 mmol/L (21-32) Anion Gap 7 (6-14) 8 (6-14) Blood Urea Nitrogen 63 mg/dL (8-26) 56 mg/dL (8-26) Creatinine 4.2 mg/dL (0.7-1.3) 3.8 mg/dL (0.7-1.3) Estimated GFR (Cockcroft-Gault) 13.7 15.4 BUN/Creatinine Ratio 15 (6-20) 15 (6-20) Glucose Level 115 mg/dL (70-99) 111 mg/dL (70-99) Calcium Level 8.9 mg/dL (8.5-10.1) 8.2 mg/dL (8.5-10.1) Total Bilirubin 0.2 mg/dL (0.2-1.0) 0.2 mg/dL (0.2-1.0) Aspartate Amino Transf (AST/SGOT) 13 U/L (15-37) 11 U/L (15-37) Alanine Aminotransferase (ALT/SGPT) 22 U/L (16-63) 22 U/L (16-63) Alkaline Phosphatase 66 U/L (46-116) 58 U/L (46-116) Total Protein 7.2 g/dL (6.4-8.2) 6.0 g/dL (6.4-8.2) Albumin 3.1 g/dL (3.4-5.0) 2.5 g/dL (3.4-5.0) Albumin/Globulin Ratio 0.8 (1.0-1.7) 0.7 (1.0-1.7) Urine Collection Type Unknown Urine Color Yellow Urine Clarity Clear Urine pH 6.0 Urine Specific [place] 1.010 Urine Protein Negative mg/dL (NEG-TRACE) Urine Glucose (UA) Negative mg/dL (NEG) Urine Ketones (Stick) Negative mg/dL (NEG) Urine Blood Negative (NEG) Urine Nitrite Negative (NEG) Urine Bilirubin Negative (NEG) Urine Urobilinogen Dipstick 0.2 mg/dL (0.2 mg/dL) Urine Leukocyte Esterase Moderate (NEG) Urine RBC Occ /HPF (0-2) Urine WBC 20-40 /HPF (0-4) Urine Bacteria 0 /HPF (0-FEW) Assessment/Plan Assessment/Plan IMP DEHYDRATION HYPOTENSION JUAN JOSE WITH CR OF 4.2 CKD STAGE 3 WITH CR OF 1.5 HX OF HTN PLAN HYDRATION RENAL SONOGRAM HOLD ANNETTE-I AND DIURETICS LABS IN AM CONNIE CASTILLO MD May 03, 2018 10:42
[2018-05-03 11:00] VITALS: BP 114/73
[2018-05-03 15:00] VITALS: BP 114/69
--- NOTE | 2018-05-03 17:02 | RAD ---
Renal ultrasound 05/03/2018 INDICATION: Acute renal failure COMPARISON: CT of the abdomen and pelvis February 26, 2018 FINDINGS: Ultrasound evaluation of the kidneys was performed. Static images are sent to PACS. The right kidney measures 13.8 cm in length. Left kidney measures 14.3 cm in length. There are bilateral renal cysts, similar to prior CT exam. Largest cyst on the right measures approximately 4 cm, similar to comparison study. Largest cyst on the right is difficult to visualize completely by ultrasound measures approximately 14 cm in diameter. Findings are similar to prior CT. No evidence of hydronephrosis, nephrolithiasis, or acute or active uropathy is identified. Visualized bladder is grossly unremarkable. The prostate is somewhat irregular in appearance an enlarged measuring approximately 43 cm in volume. IMPRESSION: 1. Multiple bilateral renal cysts similar to prior studies. No acute renal findings are identified by ultrasound 2. Prostamegaly Electronically signed by: Alfonso Marie MD (05/03/2018 4:57 PM) [id number]
[2018-05-03] MEDS: PANTOPRAZOLE 40 MG TABLET.DR. PO SCH (17:54)
[2018-05-03 19:15] VITALS: BP 120/68
[2018-05-03] MEDS: TAMSULOSIN 0.4 MG CAP.ER.24H. PO SCH (21:03)
[2018-05-03] MEDS: SIMVASTATIN 20 MG TABLET PO SCH (21:03)
[2018-05-03] MEDS: FINASTERIDE 5 MG TABLET. PO SCH (21:03)
[2018-05-03 22:52] VITALS: BP 123/70
[2018-05-04 03:11] VITALS: BP 122/74
[2018-05-04 04:40] LABS: CALCIUM 8.2 mg/dL (8.5-10.1); CREATININE 3.3 mg/dL (0.7-1.3); GFR 18.1; POTASSIUM 4.2 mmol/L (3.5-5.1)
[2018-05-04] MEDS: IV NORMAL SALINE 1000ML BAG 1,000 ML IV SCH ×3 (05:31→21:57)
[2018-05-04 07:00] VITALS: BP 118/73
[2018-05-04] MEDS: OMEGA-3 FATTY ACIDS/FISH OIL 1,000 MG CAPSULE. PO SCH (09:09)
[2018-05-04] MEDS: MULTIVITAMIN with MINERAL TABLET. PO SCH (09:10)
[2018-05-04 11:00] VITALS: BP 127/72
--- NOTE | 2018-05-04 12:31 | PDOC ---
PROGRESS NOTES Subjective Subjective SEEN IN FOLLOW UP OF ARF ON CKD3 Objective Objective Vital Signs Date Time Temp Pulse Resp B/P (MAP) Pulse Ox O2 Delivery O2 Flow Rate FiO2 05/04/18 11:00 98.0 61 18 127/72 (90) 97 Room Air 98.0 Intake and Output 05/04/18 07:00 Intake Total 5023 ml Output Total 3350 ml Balance 1673 ml Intake Oral 1960 ml IV Total 3063 ml Output Urine Total 3350 ml # Voids 2 Physical Exam Abdomen: Normal bowel sounds, Soft, No tenderness, No hepatosplenomegaly, No masses Heart: Regular rate, Normal S1, Normal S2, No murmurs, Gallops Extremities: No clubbing, No cyanosis, No edema, Normal pulses, No tenderness/ swelling General: Alert, Oriented X3, Cooperative, No acute distress Lungs: Clear to auscultation, Normal air movement Psych/Mental Status: Mental status NL, Mood NL Diagnosis RENAL FAILURE: Acute (DEHYDRATION), Chronic (CKD stage III) Assessment Assessment Problems Medical Problems: (1) JUAN JOSE (acute kidney injury) Status: Acute Plan Plan of Care HE IS IMPROVING PER GFR AND UO. CONT IVF AND FOLLOW Comment Review of Relevant I have reviewed the following items hunter (where applicable) has been applied. Labs Laboratory Tests Test 05/02/18 19:15 05/02/18 20:57 05/03/18 06:00 05/03/18 06:50 White Blood Count 10.5 x10^3/uL (4.0-11.0) 8.4 x10^3/uL (4.0-11.0) Red Blood Count 3.15 x10^6/uL (4.30-5.70) 2.86 x10^6/uL (4.30-5.70) Hemoglobin 9.3 g/dL (13.0-17.5) 8.4 g/dL (13.0-17.5) Hematocrit 27.5 % (39.0-53.0) 24.9 % (39.0-53.0) Mean Corpuscular Volume 87 fL (79-100) 87 fL (79-100) Mean Corpuscular Hemoglobin 30 pg (25-35) 29 pg (25-35) Mean Corpuscular Hemoglobin Concent 34 g/dL (31-37) 34 g/dL (31-37) Red Cell Distribution Width 14.4 % (11.5-14.5) 14.0 % (11.5-14.5) Platelet Count 330 x10^3/uL (140-400) 289 x10^3/uL (140-400) Neutrophils (%) (Auto) 73 % (31-73) 69 % (31-73) Lymphocytes (%) (Auto) 13 % (24-48) 13 % (24-48) Monocytes (%) (Auto) 8 % (0-9) 9 % (0-9) Eosinophils (%) (Auto) 5 % (0-3) 8 % (0-3) Basophils (%) (Auto) 2 % (0-3) 2 % (0-3) Neutrophils # (Auto) 7.6 x10^3uL (1.8-7.7) 5.8 x10^3uL (1.8-7.7) Lymphocytes # (Auto) 1.3 x10^3/uL (1.0-4.8) 1.1 x10^3/uL (1.0-4.8) Monocytes # (Auto) 0.8 x10^3/uL (0.0-1.1) 0.7 x10^3/uL (0.0-1.1) Eosinophils # (Auto) 0.5 x10^3/uL (0.0-0.7) 0.6 x10^3/uL (0.0-0.7) Basophils # (Auto) 0.2 x10^3/uL (0.0-0.2) 0.2 x10^3/uL (0.0-0.2) Sodium Level 138 mmol/L (136-145) 142 mmol/L (136-145) Potassium Level 4.5 mmol/L (3.5-5.1) 4.2 mmol/L (3.5-5.1) Chloride Level 106 mmol/L (98-107) 110 mmol/L (98-107) Carbon Dioxide Level 25 mmol/L (21-32) 24 mmol/L (21-32) Anion Gap 7 (6-14) 8 (6-14) Blood Urea Nitrogen 63 mg/dL (8-26) 56 mg/dL (8-26) Creatinine 4.2 mg/dL (0.7-1.3) 3.8 mg/dL (0.7-1.3) Estimated GFR (Cockcroft-Gault) 13.7 15.4 BUN/Creatinine Ratio 15 (6-20) 15 (6-20) Glucose Level 115 mg/dL (70-99) 111 mg/dL (70-99) Calcium Level 8.9 mg/dL (8.5-10.1) 8.2 mg/dL (8.5-10.1) Total Bilirubin 0.2 mg/dL (0.2-1.0) 0.2 mg/dL (0.2-1.0) Aspartate Amino Transf (AST/SGOT) 13 U/L (15-37) 11 U/L (15-37) Alanine Aminotransferase (ALT/SGPT) 22 U/L (16-63) 22 U/L (16-63) Alkaline Phosphatase 66 U/L (46-116) 58 U/L (46-116) Total Protein 7.2 g/dL (6.4-8.2) 6.0 g/dL (6.4-8.2) Albumin 3.1 g/dL (3.4-5.0) 2.5 g/dL (3.4-5.0) Albumin/Globulin Ratio 0.8 (1.0-1.7) 0.7 (1.0-1.7) Urine Collection Type Unknown Urine Color Yellow Urine Clarity Clear Urine pH 6.0 Urine Specific [place] 1.010 Urine Protein Negative mg/dL (NEG-TRACE) Urine Glucose (UA) Negative mg/dL (NEG) Urine Ketones (Stick) Negative mg/dL (NEG) Urine Blood Negative (NEG) Urine Nitrite Negative (NEG) Urine Bilirubin Negative (NEG) Urine Urobilinogen Dipstick 0.2 mg/dL (0.2 mg/dL) Urine Leukocyte Esterase Moderate (NEG) Urine RBC Occ /HPF (0-2) Urine WBC 20-40 /HPF (0-4) Urine Bacteria 0 /HPF (0-FEW) Test 05/04/18 03:25 Sodium Level 144 mmol/L (136-145) Potassium Level 4.2 mmol/L (3.5-5.1) Chloride Level 113 mmol/L (98-107) Carbon Dioxide Level 24 mmol/L (21-32) Anion Gap 7 (6-14) Blood Urea Nitrogen 46 mg/dL (8-26) Creatinine 3.3 mg/dL (0.7-1.3) Estimated GFR (Cockcroft-Gault) 18.1 Glucose Level 102 mg/dL (70-99) Calcium Level 8.2 mg/dL (8.5-10.1) Laboratory Tests Test 05/04/18 03:25 Sodium Level 144 mmol/L (136-145) Potassium Level 4.2 mmol/L (3.5-5.1) Chloride Level 113 mmol/L (98-107) Carbon Dioxide Level 24 mmol/L (21-32) Anion Gap 7 (6-14) Blood Urea Nitrogen 46 mg/dL (8-26) Creatinine 3.3 mg/dL (0.7-1.3) Estimated GFR (Cockcroft-Gault) 18.1 Glucose Level 102 mg/dL (70-99) Calcium Level 8.2 mg/dL (8.5-10.1) Medications Current Medications Sodium Chloride 1,000 ml @ 1,000 mls/hr 1X ONCE IV Last administered on at 21:09; Start 05/02/18 at 21:15; Stop 05/02/18 at 22:14; Status DC Ondansetron HCl (Zofran) 4 mg PRN Q8HRS PRN IV NAUSEA/VOMITING; Start 05/02/18 at 21:15; Stop 05/03/18 at 21:14; Status DC Fentanyl Citrate (Fentanyl 2ml Vial) 50 mcg PRN Q1HR PRN IV PAIN; Start at 21:15; Stop 05/03/18 at 08:16; Status DC Acetaminophen (Tylenol) 650 mg PRN Q4HRS PRN PO FEVER; Start 05/02/18 at 21:15 ; Stop 05/03/18 at 21:14; Status DC Finasteride (Proscar) 5 mg HS PO Last administered on 05/03/18at 21:03; Start at 23:30 Ondansetron HCl (Zofran Odt) 4 mg PRN Q4HRS PRN PO VOMITING 1ST CHOICE; Start 05/02/18 at 23:15 Tamsulosin HCl (Flomax) 0.4 mg HS PO Last administered on 05/03/18 21:03; Start 05/02/18 at 23:30 Multivitamins (Thera M Plus) 1 tab DAILY PO Last administered on 05/04/18at 09: 10; Start 05/03/18 at 09:00 Fish Oil (Fish Oil) 1,000 mg DAILY PO Last administered on 05/04/18at 09:09; Start 05/03/18 at 09:00 Simvastatin (Zocor) 20 mg HS PO Last administered on 05/03/18at 21:03; Start at 21:00 Pantoprazole Sodium (Protonix) 40 mg BIDAC PO ; Start 05/03/18 at 07:30; Stop at 07:30; Status DC Sodium Chloride 1,000 ml @ 100 mls/hr Q10H IV Last administered on 05/04/18at 05:31; Start 05/02/18 at 23:30 Pantoprazole Sodium (Protonix) 40 mg DAILYBFRSUP PO Last administered on at 17:54; Start 05/03/18 at 17:00 Active Scripts Active [Pantoprazole] 40 MG Tablet. 40 Mg PO BIDAC Zofran Odt (Ondansetron) 4 Mg Tab.rapdis 1 Tab SL Q4HRS PRN Reported Multi-Vitamin Daily (Multivitamin) 1 Each Tablet 1 Each PO DAILY Finasteride 5 Mg Tablet 1 Tab PO HS Flomax (Tamsulosin Hcl) 0.4 Mg Cap.er.24h 1 Cap PO HS Fish Oil [place]-3 EC 1,200 mg ([place]-3/Dha/Epa/Fish Oil) 1 Each Capsule. 1 Each PO DAILY Simvastatin 20 Mg Tablet 1 Tab PO DAILY Vitals/I & O Vital Sign - Last 24 Hours 05/03/18 05/03/18 05/03/18 05/03/18 15:00 19:15 19:45 22:52 Temp 97.5 98.5 98.4 97.5 98.5 98.4 Pulse 67 82 77 Resp 16 18 18 B/P (MAP) 114/69 (84) 120/68 (85) 123/70 (87) Pulse Ox 95 96 96 O2 Delivery Room Air Room Air Room Air Room Air 05/04/18 05/04/18 05/04/18 05/04/18 03:11 07:00 07:45 11:00 Temp 98.3 98.1 98.0 98.3 98.1 98.0 Pulse 76 73 61 Resp 18 18 18 B/P (MAP) 122/74 (90) 118/73 (88) 127/72 (90) Pulse Ox 97 97 O2 Delivery Room Air Room Air Room Air Room Air Intake and Output 05/03/18 05/03/18 05/04/18 15:00 23:00 07:00 Intake Total 240 ml 1160 ml 3623 ml Output Total 2025 ml 1325 ml Balance 240 ml -865 ml 2298 ml SACHIN JOSEPH MD May 04, 2018 12:31
[2018-05-04 15:00] VITALS: BP 131/74
--- NOTE | 2018-05-04 16:04 | PDOC ---
PROGRESS NOTES Subjective He feels good, drinking plenty of water and making good amounts of urine, no chest pain, no SOA, no GI symptoms Objective Afebrile General: NAD Heart: RRR Lungs: CTA Abd: soft, non tender Ext: no edema WBC: 8.4 Hgb: 8.4 K+: 4.2 Creat: 3.3 Vital Signs Vital Signs Date Time Temp Pulse Resp B/P (MAP) Pulse Ox O2 Delivery O2 Flow Rate FiO2 05/04/18 11:00 98.0 61 18 127/72 (90) 97 Room Air 98.0 I & O Intake and Output 05/04/18 07:00 Intake Total 5023 ml Output Total 3350 ml Balance 1673 ml Intake Oral 1960 ml IV Total 3063 ml Output Urine Total 3350 ml # Voids 2 Assessment and Plan A/P (1) JUAN JOSE (acute kidney injury) - continue IV and oral hydration (2) HTN -stable off meds (3) DM 2 - controlled, continue monitoring (4) anemia of chronic renal disease - stable despite hydration (5) BPH Vinnie BAKER MD May 04, 2018 16:04
[2018-05-04] MEDS: PANTOPRAZOLE 40 MG TABLET.DR. PO SCH (16:07)
[2018-05-04 19:00] VITALS: BP 122/73
[2018-05-04] MEDS: SIMVASTATIN 20 MG TABLET PO SCH (21:57)
[2018-05-04] MEDS: FINASTERIDE 5 MG TABLET. PO SCH (21:57)
[2018-05-04] MEDS: TAMSULOSIN 0.4 MG CAP.ER.24H. PO SCH (22:00)
[2018-05-04 23:00] VITALS: BP 118/58
[2018-05-05 03:00] VITALS: BP 124/69
[2018-05-05 06:52] LABS: CALCIUM 8.1 mg/dL (8.5-10.1); GFR 20.2; POTASSIUM 4.1 mmol/L (3.5-5.1)
[2018-05-05 07:00] VITALS: BP 139/76
[2018-05-05 07:03] LABS: BASO # 0.2 x10^3/uL (0.0-0.2); BASO % 2 % (0-3); EOS # 0.7 x10^3/uL (0.0-0.7); EOS % 9 % (0-3); HEMATOCRIT 25.3 % (39.0-53.0); HEMOGLOBIN 8.2 g/dL (13.0-17.5); LYMPH # 1.2 x10^3/uL (1.0-4.8); LYMPH % 13 % (24-48); MEAN CORPUSCULAR HEMOGLOBIN 28 pg (25-35); MEAN CORPUSCULAR HGB CONC 33 g/dL (31-37); MEAN CORPUSCULAR VOLUME 87 fL (79-100); MONO # 0.7 x10^3/uL (0.0-1.1); MONO % 8 % (0-9); NEUT # 5.8 x10^3uL (1.8-7.7); NEUT % 68 % (31-73); PLATELET COUNT 257 x10^3/uL (140-400); RED BLOOD COUNT 2.89 x10^6/uL (4.30-5.70); RED CELL DISTRIBUTION WIDTH 13.8 % (11.5-14.5); WHITE BLOOD COUNT 8.6 x10^3/uL (4.0-11.0)
[2018-05-05] MEDS: OMEGA-3 FATTY ACIDS/FISH OIL 1,000 MG CAPSULE. PO SCH (08:23)
[2018-05-05] MEDS: MULTIVITAMIN with MINERAL TABLET. PO SCH (08:24)
[2018-05-05 11:00] VITALS: BP 141/76
[2018-05-05] MEDS: IV NORMAL SALINE 1000ML BAG 1,000 ML IV SCH ×2 (11:30→17:00)
--- NOTE | 2018-05-05 12:40 | PDOC ---
PROGRESS NOTES Subjective Still on IVF, Cr down to 3.0, asymptomatic, wants to go home Objective Afebrile General: NAD, A&O Heart: RRR Lungs: CTA Abd: soft, normal bowel sounds, non tender Ext: No C/C/E Hgb: 8.2 K+: 4.1 Creat: 3.0, BUN 35 Vital Signs Vital Signs Date Time Temp Pulse Resp B/P (MAP) Pulse Ox O2 Delivery O2 Flow Rate FiO2 05/05/18 11:00 98.8 71 16 141/76 (97) 96 Room Air 98.8 I & O Intake and Output 05/05/18 07:00 Intake Total 3509 ml Output Total 2950 ml Balance 559 ml Intake Oral 1120 ml IV Total 2389 ml Output Urine Total 2950 ml # Voids 3 Assessment and Plan (1) JUAN JOSE (acute kidney injury) - continue IV and oral hydration, it appears he may be close to his new baseline (2) HTN -stable off meds (3) DM 2 - controlled, continue monitoring (4) anemia of chronic renal disease - gradual decrease probably due to hydration (5) BPH Vinnie BAKER MD May 05, 2018 12:39
[2018-05-05 15:00] VITALS: BP 140/77
[2018-05-05] MEDS: PANTOPRAZOLE 40 MG TABLET.DR. PO SCH (17:00)
[2018-05-05 19:30] VITALS: BP 135/77
[2018-05-05] MEDS ORDERED: LISI1TAB5 PO (20:18)
[2018-05-05] MEDS: TAMSULOSIN 0.4 MG CAP.ER.24H. PO SCH (20:27)
[2018-05-05] MEDS: FINASTERIDE 5 MG TABLET. PO SCH (20:27)
[2018-05-05] MEDS: SIMVASTATIN 20 MG TABLET PO SCH (20:27)
[2018-05-05] MEDS ORDERED: SIMETHICONE 80 MG TAB.CHEW PO PRN (20:45)
[2018-05-05 23:00] VITALS: BP 118/69
[2018-05-06] MEDS: IV NORMAL SALINE 1000ML BAG 1,000 ML IV SCH (00:55)
[2018-05-06 03:00] VITALS: BP 133/69
[2018-05-06 07:00] VITALS: BP 138/72
[2018-05-06 08:39] LABS: BASO # 0.2 x10^3/uL (0.0-0.2); BASO % 2 % (0-3); EOS # 0.6 x10^3/uL (0.0-0.7); EOS % 7 % (0-3); HEMATOCRIT 28.2 % (39.0-53.0); HEMOGLOBIN 9.6 g/dL (13.0-17.5); LYMPH % 11 % (24-48); MEAN CORPUSCULAR HEMOGLOBIN 30 pg (25-35); MEAN CORPUSCULAR HGB CONC 34 g/dL (31-37); MEAN CORPUSCULAR VOLUME 87 fL (79-100); MONO # 0.7 x10^3/uL (0.0-1.1); MONO % 7 % (0-9); NEUT # 6.9 x10^3uL (1.8-7.7); NEUT % 73 % (31-73); PLATELET COUNT 276 x10^3/uL (140-400); RED BLOOD COUNT 3.24 x10^6/uL (4.30-5.70); RED CELL DISTRIBUTION WIDTH 14.1 % (11.5-14.5); WHITE BLOOD COUNT 9.5 x10^3/uL (4.0-11.0)
[2018-05-06 08:46] LABS: CALCIUM 8.7 mg/dL (8.5-10.1); CREATININE 2.9 mg/dL (0.7-1.3); POTASSIUM 3.9 mmol/L (3.5-5.1)
[2018-05-06] MEDS: MULTIVITAMIN with MINERAL TABLET. PO SCH (08:50)
[2018-05-06] MEDS: OMEGA-3 FATTY ACIDS/FISH OIL 1,000 MG CAPSULE. PO SCH (08:50)
[2018-05-06] MEDS ORDERED: LISINOPRIL 20 MG TABLET PO SCH (09:00)
[2018-05-06] MEDS ORDERED: NON FORMULARY ITEM (Lisinopril/Hydrochlorothiazide (Lisinopril-Hctz 20-12.5 Mg Tab) 1 TAB) PO SCH (09:00)
[2018-05-06] MEDS ORDERED: hydroCHLOROthiazide 12.5 MG CAPSULE PO SCH (09:00)
[2018-05-06 11:00] VITALS: BP 132/71
[2018-05-06] MEDS ORDERED: LISI10TA2 PO (12:26)
--- NOTE | 2018-05-06 12:50 | PDOC3 ---
Discharge Summary [facility] Date of Admission: May 02, 2018 Discharge Date: May 06, 2018 Admitting Diagnosis JUAN JOSE Final Diagnosis Problems Medical Problems: (1) JUAN JOSE (acute kidney injury) Status: Acute CONSULTS renal Procedures none Brief Hospital Course Mr. Meyer is a 82 old who presented with: (1) JUAN JOSE (acute kidney injury) - treated with IV and oral hydration, likely precipitated by overtreated hypertension after developing anemia from a GI bleed. He has CKD with a baseline creatinine of 2.2 and is now at 2.9 (2) HTN -stable off meds during hospital stay but his BP is trending up and he is started back on lisinopril 10 mg daily (3) DM 2 - controlled, continued routine meds (4) anemia of chronic renal disease and recent GI bleed- remains on pantoprazole (5) BPH - stable, meds continued (6) AAA - stable on recent exam and infrarenal Disposition home CONDITION AT DISCHARGE: Improved, Stable Scheduled Finasteride (Finasteride), 1 TAB PO HS, (Reported) Lisinopril/Hydrochlorothiazide (Lisinopril-Hctz 20-12.5 Mg Tab), 1 TAB PO DAILY, (Reported) Multivitamin (Multi-Vitamin Daily), 1 EACH PO DAILY, (Reported) [place]-3/Dha/Epa/Fish Oil (Fish Oil [place]-3 EC 1,200 mg), 1 EACH PO DAILY, ( Reported) Simvastatin (Simvastatin), 1 TAB PO DAILY, (Reported) Tamsulosin Hcl (Flomax), 1 CAP PO HS, (Reported) [Pantoprazole], 40 MG PO BIDAC Scheduled PRN Ondansetron (Zofran Odt), 1 TAB SL Q4HRS PRN for VOMITING Discontinued Medications Ascorbic Acid (Vitamin C), 500 MG PO BID, (Reported) Calcium Carbonate/Vitamin D3 (Calcium 600 + Vit D 400 Softgl), 1 EACH PO BID, ( Reported) Cyanocobalamin (Vitamin B-12) (Vitamin B-12), 2,500 MCG SL DAILY, (Reported) Magnesium Oxide (Magnesium), 1 CAP PO DAILY, (Reported) Follow Up in office with BMP, CBC and with renal Vinnie BAKER MD May 06, 2018 12:50
== END 2018-05-06 13:30 | disposition home or self-care (01) | DRG 683 ==
LOC: ER 18:18 → 4 NORTH 21:01
PROVIDERS: ADMIT Family Medicine; ATTEND Family Medicine
DX: N17.9 Acute kidney failure, unspecified (principal); E44.1 Mild protein-calorie malnutrition; D63.1 Anemia in chronic kidney disease; E11.22 Type 2 diabetes mellitus with diabetic chronic kidney disease; E86.0 Dehydration; I12.9 Hypertensive chronic kidney disease with stage 1 through stage 4 chronic kidney disease, or unspecified chronic kidney disease; I71.4 Abdominal aortic aneurysm, without rupture; N18.3 Chronic kidney disease, stage 3 (moderate); I95.9 Hypotension, unspecified; N40.1 Benign prostatic hyperplasia with lower urinary tract symptoms; R35.1 Nocturia; Z79.899 Other long term (current) drug therapy; Z87.11 Personal history of peptic ulcer disease; Z87.891 Personal history of nicotine dependence; Z79.4 Long term (current) use of insulin; Z98.52 Vasectomy status; Z82.49 Family history of ischemic heart disease and other diseases of the circulatory system
CPT/HCPCS: 36415; 76770; 80048; 80053; 81001; 85025; J7030; 99285-25

== ENCOUNTER → 2018-06-21 | Outpatient (CLI) | payer MEDICARE ==
[~2018-06-21] MED LIST changes: +LISI10TA2 PO; +METF500T16 PO; -METF500T5 PO; +MULT-246 PO; +TAMS0.4C97 PO
[2018-06-21 10:01] LABS: BASO # 0.2 x10^3/uL (0.0-0.2); BASO % 3 % (0-3); EOS # 0.4 x10^3/uL (0.0-0.7); EOS % 5 % (0-3); HEMATOCRIT 32.3 % (39.0-53.0); HEMOGLOBIN 10.8 g/dL (13.0-17.5); LYMPH # 1.3 x10^3/uL (1.0-4.8); LYMPH % 18 % (24-48); MEAN CORPUSCULAR HEMOGLOBIN 30 pg (25-35); MEAN CORPUSCULAR HGB CONC 33 g/dL (31-37); MEAN CORPUSCULAR VOLUME 90 fL (79-100); MONO # 0.7 x10^3/uL (0.0-1.1); MONO % 9 % (0-9); NEUT % 65 % (31-73); PLATELET COUNT 218 x10^3/uL (140-400); RED BLOOD COUNT 3.61 x10^6/uL (4.30-5.70); RED CELL DISTRIBUTION WIDTH 16.9 % (11.5-14.5); WHITE BLOOD COUNT 7.7 x10^3/uL (4.0-11.0)
[2018-06-21 10:20] LABS: BILIRUBIN,URINE NEGATIVE (NEG); CLARITY,URINE CLEAR; COLOR,URINE YELLOW; NITRITE,URINE NEGATIVE (NEG); PH,URINE 6.5; PROTEIN,URINE NEGATIVE (NEG-TRACE); UROBILINOGEN,URINE 0.2 mg/dL (0.2 mg/dL)
[2018-06-21 10:22] LABS: ALBUMIN 3.9 g/dL (3.4-5.0); CALCIUM 10.3 mg/dL (8.5-10.1); CREATININE 2.2 mg/dL (0.7-1.3); GFR 28.9; PHOSPHORUS 3.2 mg/dL (2.6-4.7)
[2018-06-21 10:32] LABS: SQUAMOUS EPITHELIAL CELL,UR FEW /LPF
[2018-06-21 10:33] LABS: BACTERIA,URINE FEW /HPF (0-FEW)
[2018-06-21 11:26] LABS: % BANDS 1 % (0-9); % BASOS 4 % (0-3); % EOS 9 % (0-5); % LYMPHS 16 % (24-48); % MONOS 7 % (0-10); % SEGS 63 % (35-66); PLT ESTIMATE ADEQUATE (ADEQUATE)
[2018-06-21 11:27] LABS: ANISOCYTOSIS SLIGHT
[2018-06-21 21:11] LABS: UR PROTEIN RD 9.4 mg/dL (Not Estab.)
== END | disposition home or self-care (01) ==
LOC: LAB 09:22
PROVIDERS: ATTEND Internal Medicine Nephrology
DX: I12.9 Hypertensive chronic kidney disease with stage 1 through stage 4 chronic kidney disease, or unspecified chronic kidney disease (principal); E11.22 Type 2 diabetes mellitus with diabetic chronic kidney disease; N18.9 Chronic kidney disease, unspecified; D63.1 Anemia in chronic kidney disease; Z79.4 Long term (current) use of insulin; Z79.84 Long term (current) use of oral hypoglycemic drugs
CPT/HCPCS: 36415; 80069; 81001; 82570; 84156; 85007; 85025; 87086

== ENCOUNTER → 2018-08-07 | Outpatient (CLI) | payer MEDICARE ==
[2018-08-07 16:31] LABS: BASO # 0.1 x10^3/uL (0.0-0.2); BASO % 1 % (0-3); EOS # 0.1 x10^3/uL (0.0-0.7); EOS % 1 % (0-3); HEMATOCRIT 32.1 % (39.0-53.0); HEMOGLOBIN 10.7 g/dL (13.0-17.5); LYMPH # 0.9 x10^3/uL (1.0-4.8); LYMPH % 9 % (24-48); MEAN CORPUSCULAR HEMOGLOBIN 30 pg (25-35); MEAN CORPUSCULAR HGB CONC 33 g/dL (31-37); MEAN CORPUSCULAR VOLUME 92 fL (79-100); MONO # 0.7 x10^3/uL (0.0-1.1); MONO % 8 % (0-9); NEUT # 7.9 x10^3uL (1.8-7.7); NEUT % 81 % (31-73); PLATELET COUNT 187 x10^3/uL (140-400); RED BLOOD COUNT 3.51 x10^6/uL (4.30-5.70); RED CELL DISTRIBUTION WIDTH 14.5 % (11.5-14.5); WHITE BLOOD COUNT 9.7 x10^3/uL (4.0-11.0)
[2018-08-07 16:57] LABS: ALBUMIN 4.1 g/dL (3.4-5.0); CALCIUM 10.3 mg/dL (8.5-10.1); CREATININE 2.3 mg/dL (0.7-1.3); GFR 27.4; MAGNESIUM 1.8 mg/dL (1.8-2.4); PHOSPHORUS 2.5 mg/dL (2.6-4.7); POTASSIUM 3.9 mmol/L (3.5-5.1); URIC ACID 7.2 mg/dL (3.5-7.2)
[2018-08-07 23:11] LABS: CREAT RD UR 161.3 mg/dL (Not Estab.); MICRO CREAT RATIO 34.7 mg/g creat (0.0-30.0); UR PROTEIN RD 20.2 mg/dL (Not Estab.)
[2018-08-08 12:12] LABS: CALCIUM PTH 10.5 mg/dL (8.6-10.2); CREATININE PTH 2.16 mg/dL (0.76-1.27); PHOSPHORUS PTH 2.5 mg/dL (2.5-4.5); PTH INTACT 19 pg/mL (15-65)
== END | disposition home or self-care (01) ==
LOC: LAB 16:07
PROVIDERS: ATTEND Nurse Practitioner Adult Health
DX: I12.9 Hypertensive chronic kidney disease with stage 1 through stage 4 chronic kidney disease, or unspecified chronic kidney disease (principal); E11.22 Type 2 diabetes mellitus with diabetic chronic kidney disease; N18.4 Chronic kidney disease, stage 4 (severe); D64.9 Anemia, unspecified; N17.9 Acute kidney failure, unspecified; Z68.27 Body mass index [BMI] 27.0-27.9, adult
CPT/HCPCS: 36415; 80069; 82043; 82570; 82728; 83540; 83550; 83735; 83970; 84156; 84550; 85025

== ENCOUNTER 2018-12-23 08:23 | Observation (INO) | payer MEDICARE ==
[~2018-12-23] VITALS: Ht 175.3 cm; Wt 90.9 kg
[~2018-12-23 08:23] MED LIST changes: +BACITRACIN 50,000 UNIT in IV NORMAL SALINE 500ML BAG 500 ML IRR ONE; +BUPIVAC MPF-EPI 0.5%-1:200000 30 ML VIAL. ONE; +HYDROmorphone 2 MG/ML VIAL IV PRN; +IV RINGERS,LACTATED 1000ML 1,000 ML IV SCH; +MORPHINE SULFATE 2 MG/ML VIAL. IV PRN; +ONDANSETRON PF 4 MG/2 ML VIAL. IV PRN; +PROCHLORPERAZINE 10 MG/2 ML VIAL. IV PRN; +ceFAZolin 2GM PREMIX 2 GM/50 ML BAG IV ONE; +fentaNYL PF VIAL 100 MCG/2 ML VIAL IV PRN
[2018-12-23] MEDS ORDERED: FINA5TAB4 PO (08:27)
[2018-12-23] MEDS ORDERED: ASPI81TA50 PO (08:28)
[2018-12-23] MEDS ORDERED: ASCO10002 PO (08:28)
[2018-12-23] MEDS ORDERED: CHOL10003 PO (08:29)
[2018-12-23] MEDS ORDERED: CALC-530 PO (08:30)
[2018-12-23] MEDS ORDERED: KRIL500C PO (08:30)
[2018-12-23] MEDS ORDERED: PROPOFOL 20 ML IV ONE (08:44)
[2018-12-23] MEDS ORDERED: fentaNYL PF VIAL 100 MCG/2 ML VIAL ONE ×3 (08:44→12:28)
[2018-12-23] MEDS ORDERED: LIDOCAINE 2% PF 5 ML VIAL. ONE (08:44)
[2018-12-23] MEDS ORDERED: BUPIVAC MPF-EPI 0.5%-1:200000 30 ML VIAL. INJ ONE (09:48)
[2018-12-23] MEDS ORDERED: DEXAMETHASONE SOD PHOS 20 MG/5 ML VIAL. ONE (09:58)
[2018-12-23] MEDS ORDERED: SEVOFLURANE 31 TO 60 MINUTES. IH ONE (09:58)
[2018-12-23] MEDS ORDERED: ONDANSETRON PF 4 MG/2 ML VIAL. ONE (10:10)
[2018-12-23] MEDS: IV 1/2 NORMAL SALINE 1,000 ML IV SCH (11:18)
--- NOTE | 2018-12-23 11:27 | PDOC4 ---
Operative Note Operative Note Operative Note: Preoperative Diagnosis: Right inguinal hernia Postoperative Diagnosis: Same Procedure: Right inguinal hernia repair with mesh Surgeon: Vidal Coating Engineer: Kirstie SWEENEY Anesthesia: Gen. EBL: 10 mL Specimen: None Drains: None Complications: None Indication: The patient is an 83-year-old male who is referred due to a right inguinal hernia. He was offered surgical repair. The risks of surgery were discussed which include bleeding, infection, recurrence, pain, anesthetic risk, potential need for additional surgery or procedure. He understands and would like to proceed. Description: The patient was taken to the operating room and placed supine on the operating table. Gen. anesthesia was performed. The right groin was shaved and prepped with ChloraPrep and draped in a standard surgical manner. An incision was made in the right groin with a scalpel. Cautery dissection was carried down to the external oblique aponeurosis. The aponeurosis was opened down to the external ring. The contents of the inguinal canal were digitally mobilized and encircled with a Huntington drain. The vas deferens and other cord structures were identified and preserved. The patient had a fairly large direct hernia defect. There was no evidence of an indirect hernia sac. We mobilized the edges of the hernia defect circumferentially. The attenuated transversalis fascia was opened exposing the preperitoneal fat. An extra-large Phasix mesh plug was then used to fill this defect. The plug was secured around its periphery with 2-0 Vicryl. The entire inguinal floor was then reinforced with a keyhole Prolene mesh patch. The patch was secured inferiorly to the shelving edge of the inguinal ligament and superiorly to the internal oblique muscle and aponeurosis. A slit was made to accommodate the cord structures. Upon completion the plug remained well intact with the onlay mesh patch providing full coverage with overlap of the hernia defect. The external oblique was closed over the mesh with 2-0 Vicryl. The subcutaneous tissues approximated with 3-0 Vicryl. The skin was closed with 4-0 Monocryl. The incision was infiltrated with half percent Marcaine with epinephrine. Steri-Strips and a sterile dressing were applied. The patient tolerated the procedure well and was sent to the recovery room in stable condition. At the end of the case all counts were correct. ELZBIETA AGRAWAL MD Dec 23, 2018 11:27
[2018-12-23] MEDS ORDERED: 0.9 % SODIUM CHLORIDE 10 ML DISP.SYRIN. IV PRN (11:30)
[2018-12-23] MEDS ORDERED: HYDROcodone/APAP 5/325MG 1 TAB TABLET PO PRN (11:30)
[2018-12-23] MEDS ORDERED: HYDROmorphone 2 MG/ML VIAL IV PRN (11:30)
[2018-12-23] MEDS: fentaNYL PF VIAL 100 MCG/2 ML VIAL IV PRN ×4 (11:30→12:54)
[2018-12-23] MEDS ORDERED: ONDANSETRON PF 4 MG/2 ML VIAL. IV PRN (11:30)
[2018-12-23 15:00] VITALS: BP 147/82
[2018-12-23] MEDS: PANTOPRAZOLE 40 MG TABLET.DR. PO SCH (16:16)
[2018-12-23] MEDS: HYDROcodone/APAP 5/325MG 1 TAB TABLET PO PRN ×2 (16:17→21:18)
[2018-12-23 19:00] VITALS: BP 111/53
[2018-12-23] MEDS: ASCORBIC ACID 500 MG TABLET PO SCH (20:12)
[2018-12-23] MEDS ORDERED: TAMSULOSIN 0.4 MG CAP.ER.24H. PO SCH (21:00)
[2018-12-23] MEDS ORDERED: SIMVASTATIN 20 MG TABLET PO SCH (21:00)
[2018-12-23] MEDS ORDERED: FINASTERIDE 5 MG TABLET. PO SCH (21:00)
[2018-12-23 23:00] VITALS: BP 113/54
[2018-12-24] MEDS: IV 1/2 NORMAL SALINE 1,000 ML IV SCH (01:36)
--- NOTE | 2018-12-24 04:33 | CONS ---
DATE OF CONSULTATION: 12/23/2018 REASON FOR CONSULTATION: Medical management of BPH and renal insufficiency. HISTORY OF PRESENT ILLNESS AND HOSPITAL COURSE: This patient is an 83-year-old male who had elective admission for surgery of right inguinal hernia. This was accomplished with mesh placement by Dr. Drake. The patient is having uncomplicated postoperative course, has minimal complaints of pain, has IV fluids in process and is being started on clear liquids, tolerating pain well. He is doing well postop as mentioned. PAST MEDICAL HISTORY: Significant for 1. Type 2 diabetes, diet controlled. 2. Hypertension, diet controlled. 3. Chronic renal insufficiency, stage 3-4. 4. Osteoarthritis. 5. History of peptic ulcer disease. 6. BPH. MEDICATIONS: The patient's medications are as follows: Simvastatin 20 mg daily, pantoprazole 40 mg b.i.d., finasteride 5 mg daily, Flomax 0.4 daily, aspirin 81 mg daily, vitamin C b.i.d., vitamin D 2000 International Units daily, Krill oil 500 mg daily, Centrum Silver 1 daily, calcium carbonate 600 mg b.i.d. PAST SURGICAL HISTORY: Significant for laparoscopic repair of perforated duodenal ulcer in 2018, cataract surgery, vasectomy. FAMILY HISTORY: Mother with complications of a stroke, father with heart attack at age 87. Brother has in a plane accident at age 70. SOCIAL HISTORY: The patient is a former smoker. The patient does drink, but less than 2-3 beers per week. ALLERGIES: The patient has no known drug allergies. REVIEW OF SYSTEMS: The patient is doing well except for increasingly painful and increasing size of right inguinal hernia. PHYSICAL EXAMINATION: GENERAL: This is a well-nourished, well-developed male, in no apparent distress postoperatively standing and walking, tolerating clear liquids, IV fluids running with adequate pain control. HEENT: Benign. NECK: Supple. CARDIAC: Regular rate and rhythm. LUNGS: Clear. ABDOMEN: Soft and nontender. EXTREMITIES: 2+ pulses without significant edema. NEUROLOGIC: Showed no unilateral findings. ASSESSMENT: 1. Immediately post-surgery, right inguinal hernia repair with mesh. 2. Diet controlled type 2 diabetes. 3. Diet controlled hypertension. 4. Chronic renal insufficiency with baseline creatinine of 1.7, followed by Renal as an outpatient. PLAN: To proceed with postoperative care. Monitor diet and pain control and discharged to home when stable within the next 24 hours. Monitor ability to urinate and guard for urinary retention due to BPH. SACHIN MCNAIR MD DR: PHIL/kisha JOB#: [id number] / [id number]
[2018-12-24] MEDS: PANTOPRAZOLE 40 MG TABLET.DR. PO SCH (05:41)
[2018-12-24] MEDS: HYDROcodone/APAP 5/325MG 1 TAB TABLET PO PRN (06:23)
[2018-12-24 07:00] VITALS: BP 129/61
[2018-12-24] MEDS: ASCORBIC ACID 500 MG TABLET PO SCH (08:20)
--- NOTE | 2018-12-24 08:38 | NUR ---
SW following for discharge planning. Discussed with RN, pt is from home with , RN anticipates discharge home today. RN advised no SW needs.
[2018-12-24] MEDS ORDERED: HYDR-2761 PO (08:58)
[2018-12-24] MEDS ORDERED: MULTIVITAMIN with MINERAL TABLET. PO SCH (09:00)
[2018-12-24] MEDS ORDERED: ASPIRIN ENTERIC COATED 81 MG TABLET.DR. PO SCH (09:00)
[2018-12-24] MEDS ORDERED: CHOLECALCIFEROL (VITAMIN D3) 1,000 UNIT TABLET PO SCH (09:00)
[2018-12-24] MEDS ORDERED: CALCIUM CARBONATE 500 MG TAB.CHEW PO SCH (09:00)
[2018-12-24] MEDS ORDERED: OMEGA-3 FATTY ACIDS/FISH OIL 1,000 MG CAPSULE. PO SCH (09:00)
--- NOTE | 2018-12-24 09:13 | PDOC ---
PROGRESS NOTES Subjective Subjective Patient feeling well. tolerating diet. Objective Objective Vital Signs Date Time Temp Pulse Resp B/P (MAP) Pulse Ox O2 Delivery O2 Flow Rate FiO2 12/24/18 07:52 Room Air 12/24/18 07:00 98.1 62 16 129/61 (83) 96 98.1 12/23/18 13:10 2.0 Intake and Output 12/24/18 07:00 Intake Total 1720 ml Output Total 10 ml Balance 1710 ml Intake Oral 620 ml IV Total 1100 ml Output Estimated Blood Loss 10 ml # Voids 6 Physical Exam Abdomen: Normal bowel sounds Heart: Regular rate Extremities: No edema General: Alert Lungs: Clear to auscultation Assessment Assessment 1. POD # 1 right inguinal hernial repair with mesh 2. Diet controlled type 2 diabetes. 3. Diet controlled hypertension. 4. Chronic renal insufficiency with baseline creatinine of 1.7, followed by Renal as an outpatient. Plan Plan of Care Stable for D/c f/u 1 week bring meds to appt Comment Review of Relevant I have reviewed the following items hunter (where applicable) has been applied. Labs Laboratory Tests Test 12/23/18 09:04 12/23/18 21:31 Glucose (Fingerstick) 112 mg/dL (70-99) 206 mg/dL (70-99) Laboratory Tests Test 12/23/18 21:31 Glucose (Fingerstick) 206 mg/dL (70-99) Medications Current Medications Cefazolin Sodium/ Dextrose 50 ml @ 100 mls/hr 1X PREOP PRN IV PRIOR TO PROCEDURE Last administered on 12/23/18at 09:57; Start 12/23/18 at 06:00; Stop 12/23 at 18:00; Status DC Bacitracin 85685 unit/Sodium Chloride 500 ml @ 500 mls/hr 1X ONCE IRR Last administered on 12/23/18at 10:38; Start 12/23/18 at 06:00; Stop 12/23/18 at 06:59; Status DC Ondansetron HCl (Zofran) 4 mg PRN Q6HRS PRN IV NAUSEA/VOMITING; Start 12/23/18 at 07:30; Stop 12/23/18 at 20:00; Status DC Fentanyl Citrate (Fentanyl 2ml Vial) 25 mcg PRN Q5MIN PRN IV MILD PAIN; Start 12/23/18 at 07:30; Stop 12/23/18 at 20:00; Status DC Fentanyl Citrate (Fentanyl 2ml Vial) 50 mcg PRN Q5MIN PRN IV MODERATE TO SEVERE PAIN Last administered on 12/23/18at 12:54; Start 12/23/18 at 07:30; Stop at 20:00; Status DC Morphine Sulfate (Morphine Sulfate) 1 mg PRN Q10MIN PRN IV SEVERE PAIN; Start 12/23/18 at 07:30; Stop 12/23/18 at 20:00; Status DC Ringer's Solution 1,000 ml @ 30 mls/hr Q24H IV Last administered on 12/23/18at 09:11; Start 12/23/18 at 07:18; Stop 12/23/18 at 19:17; Status DC Hydromorphone HCl (Dilaudid) 0.5 mg PRN Q10MIN PRN IV SEV PAIN, Second choice; Start 12/23/18 at 07:30; Stop 12/23/18 at 20:00; Status DC Prochlorperazine Edisylate (Compazine) 5 mg PACU PRN PRN IV NAUSEA, MRX1; Start 12/23/18 at 07:30; Stop 12/23/18 at 20:00; Status DC Bupivacaine HCl/ Epinephrine Bitart (Sensorcain-Mpf Epi 0.5%-1:[id number]) 30 ml STK -MED ONCE .ROUTE ; Start 12/23/18 at 06:23; Stop 12/23/18 at 07:24; Status DC Propofol 20 ml @ As Directed STK-MED ONCE IV ; Start 12/23/18 at 08:44; Stop 12/23 at 08:45; Status DC Lidocaine HCl (Lidocaine Pf 2% Vial) 5 ml STK-MED ONCE .ROUTE ; Start 12/23/18 at 08:44; Stop 12/23/18 at 08:45; Status DC Fentanyl Citrate (Fentanyl 2ml Vial) 100 mcg STK-MED ONCE .ROUTE ; Start at 08:44; Stop 12/23/18 at 08:45; Status DC Dexamethasone Sodium Phosphate (Decadron) 20 mg STK-MED ONCE .ROUTE ; Start 12/23 at 09:58; Stop 12/23/18 at 09:59; Status DC Sevoflurane (Ultane) 30 ml STK-MED ONCE IH ; Start 12/23/18 at 09:58; Stop at 09:59; Status DC Ondansetron HCl (Zofran) 4 mg STK-MED ONCE .ROUTE ; Start 12/23/18 at 10:10; Stop 12/23/18 at 10:11; Status DC Bupivacaine HCl/ Epinephrine Bitart (Sensorcain-Mpf Epi 0.5%-1:208018) 30 ml STK -MED ONCE INJ Last administered on 12/23/18at 09:48; Start 12/23/18 at 09:48; Stop 12/23/18 at 10:17; Status DC Fentanyl Citrate (Fentanyl 2ml Vial) 100 mcg STK-MED ONCE .ROUTE ; Start at 11:20; Stop 12/23/18 at 11:21; Status DC Sodium Chloride (Normal Saline Flush) 3 ml QSHIFT PRN IV AFTER MEDS AND BLOOD DRAWS; Start 12/23/18 at 11:30 Sodium Chloride 1,000 ml @ 70 mls/hr [id number] IV ; Start 12/23/18 at 11:18; Stop 12/24/18 at 02:56; Status DC Acetaminophen/ Hydrocodone Bitart (Lortab 5/325) 1 tab PRN Q4HRS PRN PO MILD PAIN Last administered on 12/24/18at 06:23; Start 12/23/18 at 11:30 Acetaminophen/ Hydrocodone Bitart (Lortab 5/325) 2 tab PRN Q4HRS PRN PO MODERATE PAIN, SEVERE PAIN; Start 12/23/18 at 11:30 Hydromorphone HCl (Dilaudid) 0.2 mg PRN Q1HR PRN IV PAIN, SEE COMMENTS Last administered on 12/23/18at 13:43; Start 12/23/18 at 11:30 Ondansetron HCl (Zofran) 4 mg PRN Q6HRS PRN IV NAUESA, 1ST CHOICE; Start at 11:30 Aspirin (Ecotrin) 81 mg DAILY PO Last administered on 12/24/18at 08:20; Start 12/24/18 at 09:00 Vitamin D (Vitamin D3) 2,000 unit DAILY PO Last administered on 12/24/18at 08:19 ; Start 12/24/18 at 09:00 Finasteride (Proscar) 5 mg HS PO Last administered on 12/23/18 20:11; Start 12/23/18 at 21:00 Tamsulosin HCl (Flomax) 0.4 mg HS PO Last administered on 12/23/18 20:12; Start 12/23/18 at 21:00 Ascorbic Acid (Vitamin C) 1,000 mg BID PO Last administered on 12/24/18 08:20; Start 12/23/18 at 21:00 Calcium Carbonate/ Glycine (Tums) 500 mg DAILY PO Last administered on 08:20; Start 12/24/18 at 09:00 Fish Oil (Fish Oil) 1,000 mg DAILY PO Last administered on 12/24/18 08:19; Start 12/24/18 at 09:00 Multivitamins (Thera M Plus) 1 tab DAILY PO Last administered on 12/24/18 08:19 ; Start 12/24/18 at 09:00 Simvastatin (Zocor) 20 mg HS PO Last administered on 12/23/18 20:12; Start 12/23 at 21:00 Pantoprazole Sodium (Protonix) 40 mg BIDAC PO Last administered on 12/24/18 05: 41; Start 12/23/18 at 16:30 Fentanyl Citrate (Fentanyl 2ml Vial) 100 mcg STK-MED ONCE .ROUTE ; Start at 12:28; Stop 12/23/18 at 12:29; Status DC Active Scripts Active Hydrocodone-Apap 5-325 (Hydrocodone Bit/Acetaminophen) 1 Tab Tablet 1 Tab PO PRN Q4HRS PRN 30 Days [Pantoprazole] 40 MG Tablet. 40 Mg PO BIDAC Reported Calcium Carbonate 300 Mg Tab.chew 600 Mg PO DAILY Krill Oil 500 Mg Capsule 500 Mg PO DAILY Vitamin D3 (Cholecalciferol (Vitamin D3)) 1,000 Unit Tablet 2,000 Unit PO DAILY Vitamin C (Ascorbic Acid) 1,000 Mg Tablet 1,000 Mg PO BID Aspir-Low (Aspirin) 81 Mg Tablet. 81 Mg PO DAILY Multi-Vitamin Daily (Multivitamin) 1 Each Tablet 1 Each PO DAILY Finasteride 5 Mg Tablet 1 Tab PO HS Flomax (Tamsulosin Hcl) 0.4 Mg Cap.er.24h 1 Cap PO HS Simvastatin 20 Mg Tablet 1 Tab PO DAILY Vitals/I & O Vital Sign - Last 24 Hours 12/23/18 12/23/18 12/23/18 12/23/18 11:12 11:12 11:27 11:30 Temp 98 98.0 Pulse 66 56 Resp 14 18 18 B/P (MAP) 148/75 144/81 Pulse Ox 97 96 93 O2 Delivery Simple Mask Mask Simple Mask Room Air O2 Flow Rate 8 8 8 12/23/18 12/23/18 12/23/18 12/23/18 11:42 11:57 12:00 12:12 Pulse 66 58 61 Resp 18 18 16 18 B/P (MAP) 142/70 139/70 141/76 Pulse Ox 94 94 94 96 O2 Delivery Room Air Room Air Room Air Nasal Cannula O2 Flow Rate 2 12/23/18 12/23/18 12/23/18 12/23/18 12:27 12:30 12:42 12:53 Temp 98 98.0 Pulse 60 64 Resp 18 22 18 B/P (MAP) 141/80 141/80 Pulse Ox 96 96 96 O2 Delivery Nasal Cannula Nasal Cannula Nasal Cannula Nasal Cannula O2 Flow Rate 2 2.0 2 2 12/23/18 12/23/18 12/23/18 12/23/18 12:54 13:10 13:43 13:50 Resp 16 Pulse Ox 96 O2 Delivery Nasal Cannula Nasal Cannula Room Air Room Air O2 Flow Rate 2.0 2.0 12/23/18 12/23/18 12/23/18 12/23/18 15:00 16:17 19:00 20:11 Temp 98.1 98.1 Pulse 63 77 Resp 18 18 B/P (MAP) 147/82 (103) 111/53 (72) Pulse Ox 97 91 O2 Delivery Room Air Room Air Room Air Room Air 12/23/18 12/23/18 12/24/18 12/24/18 21:18 23:00 06:23 07:00 Temp 98.1 98.1 98.1 98.1 Pulse 62 62 Resp 18 16 B/P (MAP) 113/54 (73) 129/61 (83) Pulse Ox 94 96 O2 Delivery Room Air Room Air Room Air Room Air 12/24/18 12/24/18 07:00 07:52 O2 Delivery Room Air Room Air Intake and Output 12/23/18 12/23/18 12/24/18 15:00 23:00 07:00 Intake Total 1220 ml 500 ml Output Total 10 ml Balance 1210 ml 500 ml SACHIN MCNAIR MD Dec 24, 2018 09:13
--- NOTE | 2018-12-24 09:21 | PDOC ---
JUAN ROBLES MARINA [employer]Y DOCK MANAGER 12/24/18 0921: SURGICAL PROGRESS NOTE Subjective tolerating diet urinating ambulating pain managed Vital Signs Vital Signs Date Time Temp Pulse Resp B/P (MAP) Pulse Ox O2 Delivery O2 Flow Rate FiO2 12/24/18 07:52 Room Air 12/24/18 07:00 98.1 62 16 129/61 (83) 96 98.1 12/23/18 13:10 2.0 I&O Intake and Output 12/24/18 07:00 Intake Total 1720 ml Output Total 10 ml Balance 1710 ml Intake Oral 620 ml IV Total 1100 ml Output Estimated Blood Loss 10 ml # Voids 6 General: Alert, Oriented X3, Cooperative, No acute distress Abdomen: Soft, Other (ND) Skin: Other ([facility] incision c/d/i, no erythema ) Labs Laboratory Tests Test 12/23/18 09:04 12/23/18 21:31 Glucose (Fingerstick) 112 mg/dL (70-99) 206 mg/dL (70-99) Laboratory Tests Test 12/23/18 21:31 Glucose (Fingerstick) 206 mg/dL (70-99) Assessment/Plan s/p [facility] home FU 2 weeks, scripts on chart, no lifting ELZBIETA AGRAWAL MD 12/24/18 1145: SURGICAL PROGRESS NOTE Assessment/Plan Agree with above JUAN ROBLES [employer]INA [employer] D[employer] MANAGER Dec 24, 2018 09:21 ELZBIETA AGRAWAL MD Dec 24, 2018 11:45
--- NOTE | 2018-12-24 09:23 | DISCH ---
DISCHARGE INSTRUCTIONS Condition on Discharge Condition on Discharge: Stable Activity After Discharge Activity Instructions for Disc: Activity as tolerated Other activity instructions: ok to shower Lifting Instructions after Dis: No heavy lifting, No pulling or pushing, Do not lift >10 pounds Driving Instructions after Dis: Do not drive Weight Bearing Status after Di: Full weight bearing Diet after Discharge Diet after Discharge: Low Fat, Low Sodium 2 gm Diet Texture: Regular Liquid Texture: Thin Liquid Wound Incision Care Wound/Incision Care: No wound care needed Other wound/incision instructi: ice as needed Contacting the DRDmitri after DC Call your doctor for: Concerns you may have Follow-Up Follow up with: Dr Drake 2 weeks, call to schedule [phone] Treatment/Equipment after DC Adaptive Equipment Issued: None JUAN ROBLES APRN Dec 24, 2018 09:23
--- NOTE | 2018-12-24 10:10 | NUR ---
Pt. discharged to home with Rx, verbalized understanding of discharge instructions. Lower abd incision CDI.
--- NOTE | 2018-12-26 11:42 | PDOC3 ---
Discharge Summary Visit Information Date of Admission: Dec 23, 2018 Date of Discharge: Dec 24, 2018 Admitting Diagnosis: Right inguinal hernia Final Diagnosis Right inguinal hernia Brief Hospital Course Allergies Allergies Coded Allergies Type Severity Reaction Last Updated Verified No Known Drug Allergies 12/23/18 No Brief Hospital Course Mr. Meyer is a 83 old male who underwent Right inguinal hernia repair with mesh. Postoperatively tolerating diet, ambulating, and pain managed. Ready for discharge home Discharge Information Condition at Discharge: Stable Follow Up: Weeks (2) Scheduled Ascorbic Acid (Vitamin C) 1,000 Mg Tablet, 1,000 MG PO BID for SUPPLEMENT, ( Reported) Entered as Reported by: ESTELA MASON on 12/23/18827 Last Taken: Unknown Dose on 12/19/18 Last Action: Converted on 12/23/181121 by ELZBIETA AGRAWAL Aspirin (Aspir-Low) 81 Mg Tablet.dr, 81 MG PO DAILY for UNKNOWN, (Reported) Entered as Reported by: ESTELA MASON on 12/23/18827 Last Taken: Unknown Dose on 12/18/18 Last Action: Continued on 12/23/181121 by ELZBIETA AGRAWAL Calcium Carbonate (Calcium Carbonate) 300 Mg Tab.chew, 600 MG PO DAILY for UNKNOWN, (Reported) Entered as Reported by: ESTELA MASON on 12/23/18829 Last Taken: Unknown Dose on 12/19/18 Last Action: Converted on 12/23/181121 by ELZBIETA AGRAWAL Cholecalciferol (Vitamin D3) (Vitamin D3) 1,000 Unit Tablet, 2,000 UNIT PO DAILY for SUPPLEMENT, (Reported) Entered as Reported by: ESTELA MASON on 12/23/1829 Last Taken: Unknown Dose on 12/19/18 Last Action: Continued on 12/23/181121 by ELZBIETA AGRAWAL Finasteride (Finasteride) 5 Mg Tablet, 1 TAB PO HS, #30 Ref 11 (Reported) Entered as Reported by: ZAC WATTS on 05/02/18 2252 Last Taken: Unknown Dose on 12/23/18 0600 Last Action: Continued on 12/23/181121 by ELZBIETA AGRAWAL Krill Oil (Krill Oil) 500 Mg Capsule, 500 MG PO DAILY for SUPPLEMENT, (Reported) Entered as Reported by: ESTELA MASON on 12/23/18829 Last Taken: Unknown Dose on 12/19/18 Last Action: Converted on 12/23/181121 by ELZBIETA AGRAWAL Multivitamin (Multi-Vitamin Daily) 1 Each Tablet, 1 EACH PO DAILY, (Reported) Entered as Reported by: ZAC WATTS on 05/02/18 2300 Last Taken: Unknown Dose on 12/19/18 Last Action: Converted on 12/23/181121 by ELZBIETA AGRAWAL Simvastatin (Simvastatin) 20 Mg Tablet, 1 TAB PO DAILY, #30 Ref 5 (Reported) Entered as Reported by: DAYLIN CHEN on 09/08/15 1557 Last Taken: Unknown Dose on 12/22/18 2100 Last Action: Converted on 12/23/181121 by ELZBIETA AGRAWAL Tamsulosin Hcl (Flomax) 0.4 Mg Cap.er.24h, 1 CAP PO HS, #30 Ref 11 (Reported) Entered as Reported by: ZAC WATTS on 05/02/18 2252 Last Taken: Unknown Dose on 12/22/18 Last Action: Continued on 12/23/181121 by ELZBIETA AGRAWAL [Pantoprazole] 40 MG TABLET., 40 MG PO BIDAC, #60 Ref 0 Prescribed by: Juan Pedro on 03/08/18 0848 Last Taken: Unknown Dose on 12/23/18 0600 Last Action: Converted on 12/23/181121 by ELZBIETA AGRAWAL Scheduled PRN Hydrocodone Bit/Acetaminophen (Hydrocodone-Apap 5-325 ) 1 Tab Tablet, 1 TAB PO PRN Q4HRS PRN for MILD PAIN for 30 Days, #45 Prescribed by: SACHIN MCNAIR on 12/24/18 0858 Discontinued Medications Finasteride (Finasteride) 5 Mg Tablet, 5 MG PO DAILY for UNKNOWN, (Reported) Entered as Reported by: ESTELA MASON on 12/23/18 0827 Last Action: Discontinued on 12/23/18 08 by ESTELA MASON Guin-3/Dha/Epa/Fish Oil (Fish Oil Guin-3 EC 1,200 mg) 1 Each Capsule., 1 EACH PO DAILY, (Reported) Entered as Reported by: Vika Nova on 09/08/15 2155 Last Action: Discontinued on 12/23/18 08 by JUAN ARANGO APRN Dec 26, 2018 11:42
== END 2018-12-24 10:15 | disposition home or self-care (01) ==
LOC: SURG 08:23 → 4 NORTH 11:45
PROVIDERS: ADMIT Surgery; ATTEND Surgery
DX: K40.90 Unilateral inguinal hernia, without obstruction or gangrene, not specified as recurrent (principal); M19.90 Unspecified osteoarthritis, unspecified site; I71.4 Abdominal aortic aneurysm, without rupture; F41.9 Anxiety disorder, unspecified; H26.9 Unspecified cataract; R94.31 Abnormal electrocardiogram [ECG] [EKG]; Z98.890 Other specified postprocedural states; Z87.891 Personal history of nicotine dependence; Z87.11 Personal history of peptic ulcer disease; E11.22 Type 2 diabetes mellitus with diabetic chronic kidney disease; I12.9 Hypertensive chronic kidney disease with stage 1 through stage 4 chronic kidney disease, or unspecified chronic kidney disease; N18.9 Chronic kidney disease, unspecified; Z82.49 Family history of ischemic heart disease and other diseases of the circulatory system
CPT/HCPCS: 49505; 82962; 96374; A7015; C1781; G0378; G0379; J0696; J1100; J1170; J2001; J2405; J2704; J3010; J3490; J7040

== ENCOUNTER → 2019-01-07 | Outpatient (CLI) | payer MEDICARE ==
[2018-12-24 07:00] VITALS: BP 129/61
[~2019-01-07] MED LIST changes: +ASCO10002 PO; +ASPI81TA50 PO; -BACITRACIN 50,000 UNIT in IV NORMAL SALINE 500ML BAG 500 ML IRR ONE; -BUPIVAC MPF-EPI 0.5%-1:200000 30 ML VIAL. ONE; +CALC-530 PO; +CHOL10003 PO; +HYDR-2761 PO; -HYDROmorphone 2 MG/ML VIAL IV PRN; -IV RINGERS,LACTATED 1000ML 1,000 ML IV SCH; +KRIL500C PO; -MORPHINE SULFATE 2 MG/ML VIAL. IV PRN; -ONDANSETRON PF 4 MG/2 ML VIAL. IV PRN; -PROCHLORPERAZINE 10 MG/2 ML VIAL. IV PRN; -ceFAZolin 2GM PREMIX 2 GM/50 ML BAG IV ONE; -fentaNYL PF VIAL 100 MCG/2 ML VIAL IV PRN
[2019-01-07 14:52] LABS: BASO # 0.1 x10^3/uL (0.0-0.2); BASO % 2 % (0-3); EOS # 0.3 x10^3/uL (0.0-0.7); EOS % 4 % (0-3); HEMATOCRIT 32.8 % (39.0-53.0); HEMOGLOBIN 10.8 g/dL (13.0-17.5); LYMPH # 1.5 x10^3/uL (1.0-4.8); LYMPH % 21 % (24-48); MEAN CORPUSCULAR HEMOGLOBIN 31 pg (25-35); MEAN CORPUSCULAR HGB CONC 33 g/dL (31-37); MEAN CORPUSCULAR VOLUME 95 fL (79-100); MONO # 0.7 x10^3/uL (0.0-1.1); MONO % 10 % (0-9); NEUT # 4.4 x10^3uL (1.8-7.7); NEUT % 63 % (31-73); PLATELET COUNT 205 x10^3/uL (140-400); RED BLOOD COUNT 3.44 x10^6/uL (4.30-5.70); RED CELL DISTRIBUTION WIDTH 13.3 % (11.5-14.5); WHITE BLOOD COUNT 6.9 x10^3/uL (4.0-11.0)
[2019-01-07 14:59] LABS: CREATININE,RANDOM URINE 26.5 mg/dL (Not Establ.)
[2019-01-07 15:27] LABS: ALBUMIN 3.8 g/dL (3.4-5.0); CREATININE 1.6 mg/dL (0.7-1.3); GFR 41.6; MAGNESIUM 1.8 mg/dL (1.8-2.4); PHOSPHORUS 3.4 mg/dL (2.6-4.7); POTASSIUM 4.8 mmol/L (3.5-5.1); URIC ACID 5.9 mg/dL (3.5-7.2)
[2019-01-07 18:09] LABS: CALCIUM PTH 9.7 mg/dL (8.6-10.2); CREAT RD UR 27.9 mg/dL (Not Estab.); CREATININE PTH 1.56 mg/dL (0.76-1.27); MICRO CREAT RATIO 24.7 mg/g creat (0.0-30.0); MICROALB RD UR 6.9 ug/mL (Not Estab.); PHOSPHORUS PTH 3.1 mg/dL (2.5-4.5); PTH INTACT 26 pg/mL (15-65)
== END | disposition home or self-care (01) ==
LOC: LAB 14:09
PROVIDERS: ATTEND Nurse Practitioner Adult Health
DX: N17.9 Acute kidney failure, unspecified (principal); E11.21 Type 2 diabetes mellitus with diabetic nephropathy; I12.9 Hypertensive chronic kidney disease with stage 1 through stage 4 chronic kidney disease, or unspecified chronic kidney disease; N18.4 Chronic kidney disease, stage 4 (severe); D64.9 Anemia, unspecified; Z68.27 Body mass index [BMI] 27.0-27.9, adult; Z79.84 Long term (current) use of oral hypoglycemic drugs
CPT/HCPCS: 36415; 80069; 82043; 82570; 82728; 83540; 83550; 83735; 83970; 84156; 84550; 85025

== ENCOUNTER 2019-08-27 10:56 | Inpatient (IN) | payer MEDICARE ==
[~2019-08-27] VITALS: Ht 182.9 cm; Wt 82.7 kg
[2019-08-27 05:00] VITALS: BP 138/72
[~2019-08-27 10:56] MED LIST changes: +ASCO-219 PO; -ASCO500T PO; +LISI1TAB19 PO; -LISI1TAB5 PO; -POTA10TA12 PO; -POTA8CAP PO; +POTA8CAP19 PO; +POTASSIUM CHLO10 ME1 PO; +SIMV20TA18 PO; -SIMV20TA3 PO
[2019-08-27] MEDS ORDERED: ASPIRIN CHEWABLE 81 MG TABLET. PO ONE (11:15)
[2019-08-27 11:31] LABS: BASO # 0.1 x10^3/uL (0.0-0.2); BASO % 1 % (0-3); CALCIUM 9.8 mg/dL (8.5-10.1); CREATININE 1.5 mg/dL (0.7-1.3); EOS # 0.2 x10^3/uL (0.0-0.7); EOS % 3 % (0-3); GFR 44.8; HEMOGLOBIN 11.6 g/dL (13.0-17.5); LYMPH # 1.3 x10^3/uL (1.0-4.8); LYMPH % 23 % (24-48); MEAN CORPUSCULAR HEMOGLOBIN 31 pg (25-35); MEAN CORPUSCULAR HGB CONC 33 g/dL (31-37); MEAN CORPUSCULAR VOLUME 93 fL (79-100); MONO # 0.6 x10^3/uL (0.0-1.1); MONO % 10 % (0-9); NEUT # 3.7 x10^3/uL (1.8-7.7); NEUT % 63 % (31-73); PLATELET COUNT 196 x10^3/uL (140-400); POTASSIUM 4.3 mmol/L (3.5-5.1); RED BLOOD COUNT 3.75 x10^6/uL (4.30-5.70); RED CELL DISTRIBUTION WIDTH 12.9 % (11.5-14.5); WHITE BLOOD COUNT 5.8 x10^3/uL (4.0-11.0)
[2019-08-27 11:36] LABS: ALBUMIN 3.9 g/dL (3.4-5.0); ALBUMIN/GLOBULIN RATIO 1.1 (1.0-1.7); MAGNESIUM 1.7 mg/dL (1.8-2.4); TOTAL BILIRUBIN 0.4 mg/dL (0.2-1.0); TOTAL PROTEIN 7.4 g/dL (6.4-8.2)
--- NOTE | 2019-08-27 11:36 | PHYS DOC ---
Past Medical History Past Medical History: GERD, High Cholesterol, Other Additional Past Medical Histor: AAA, RENAL CYST; prostatitis Past Surgical History: Other Additional Past Surgical Histo: perforated ulcer repair, hernia repair; cardiac cath no stents Alcohol Use: Rarely Drug Use: None Adult General Chief Complaint Chief Complaint: CHEST PAIN HPI HPI Patient is an 83-year-old male who presents with complaint of intermittent chest pain that started yesterday. Patient indicates that pain comes and goes and states that when it comes it lasts for about 10-20 seconds. He describes pain as sharp in nature when it comes. He denies any exacerbating or alleviating factor s. He denies any nausea, vomiting or diaphoresis. He rates pain at a 7 out of 10 when pain is present but states that he has no pain at this time.[] Review of Systems Review of Systems Constitutional: Denies fever or chills [] Respiratory: Denies cough or shortness of breath [] Cardiovascular: No additional information not addressed in HPI [] GI: Denies abdominal pain, nausea, vomiting or diarrhea [] Integument: Denies rash or skin lesions [] Neurologic: Denies headache, focal weakness or sensory changes [] All other systems were reviewed and found to be within normal limits, except as documented in this note. Current Medications Current Medications Current Medications Medications (Trade) Dose Ordered Sig/Charlie Start Time Stop Time Status Last Admin Dose Admin Aspirin (Children'S Aspirin) 324 mg 1X ONCE 08/27/19 11:15 08/27/19 11:16 DC 08/27/19 11:15 324 MG Morphine Sulfate (Morphine Sulfate) 2 mg PRN Q2HR PRN 08/27/19 13:15 08/28/19 13:14 Ondansetron HCl (Zofran) 4 mg PRN Q8HRS PRN 08/27/19 13:15 08/28/19 13:14 Allergies Allergies Allergies Coded Allergies Type Severity Reaction Last Updated Verified No Known Drug Allergies 12/23/18 No Physical Exam Physical Exam Constitutional: Well developed, well nourished, no acute distress, non-toxic appearance. [] HENT: Normocephalic, atraumatic, bilateral external ears normal, oropharynx moist, no oral exudates, nose normal. [] Eyes: PERRLA, EOMI, conjunctiva normal, no discharge. [] Neck: Normal range of motion, no tenderness, supple, no stridor. [] Cardiovascular: Regular rate and rhythm[] Lungs & Thorax: Bilateral breath sounds clear to auscultation [] Abdomen: Bowel sounds normal, soft, no tenderness. [] Skin: Warm, dry, no erythema, no rash. [] Extremities: No tenderness, no cyanosis, no clubbing, ROM intact, no edema. [] Neurologic: Alert and oriented X 3, no focal deficits noted. [] Current Patient Data Vital Signs Vital Signs Date Time Temp Pulse Resp B/P (MAP) Pulse Ox O2 Delivery O2 Flow Rate FiO2 08/27/19 11:03 98.0 63 16 142/80 (100) 99 Room Air 98.0 Lab Values Laboratory Tests Test 08/27/19 11:15 08/27/19 12:42 White Blood Count 5.8 x10^3/uL (4.0-11.0) Red Blood Count 3.75 x10^6/uL (4.30-5.70) L Hemoglobin 11.6 g/dL (13.0-17.5) L Hematocrit 35.0 % (39.0-53.0) L Mean Corpuscular Volume 93 fL (79-100) Mean Corpuscular Hemoglobin 31 pg (25-35) Mean Corpuscular Hemoglobin Concent 33 g/dL (31-37) Red Cell Distribution Width 12.9 % (11.5-14.5) Platelet Count 196 x10^3/uL (140-400) Neutrophils (%) (Auto) 63 % (31-73) Lymphocytes (%) (Auto) 23 % (24-48) L Monocytes (%) (Auto) 10 % (0-9) H Eosinophils (%) (Auto) 3 % (0-3) Basophils (%) (Auto) 1 % (0-3) Neutrophils # (Auto) 3.7 x10^3/uL (1.8-7.7) Lymphocytes # (Auto) 1.3 x10^3/uL (1.0-4.8) Monocytes # (Auto) 0.6 x10^3/uL (0.0-1.1) Eosinophils # (Auto) 0.2 x10^3/uL (0.0-0.7) Basophils # (Auto) 0.1 x10^3/uL (0.0-0.2) Prothrombin Time 12.1 SEC (11.7-14.0) Prothrombin Time INR 0.9 (0.8-1.1) Sodium Level 141 mmol/L (136-145) Potassium Level 4.3 mmol/L (3.5-5.1) Chloride Level 104 mmol/L (98-107) Carbon Dioxide Level 30 mmol/L (21-32) Anion Gap 7 (6-14) Blood Urea Nitrogen 24 mg/dL (8-26) Creatinine 1.5 mg/dL (0.7-1.3) H Estimated GFR (Cockcroft-Gault) 44.8 BUN/Creatinine Ratio 16 (6-20) Glucose Level 104 mg/dL (70-99) H Calcium Level 9.8 mg/dL (8.5-10.1) Magnesium Level 1.7 mg/dL (1.8-2.4) L Total Bilirubin 0.4 mg/dL (0.2-1.0) Aspartate Amino Transferase (AST) 18 U/L (15-37) Alanine Aminotransferase (ALT) 21 U/L (16-63) Alkaline Phosphatase 69 U/L (46-116) Troponin I Quantitative < 0.017 ng/mL (0.000-0.055) IW-Ksw-U-Type Natriuretic Peptide 293 pg/mL (0-449) Total Protein 7.4 g/dL (6.4-8.2) Albumin 3.9 g/dL (3.4-5.0) Albumin/Globulin Ratio 1.1 (1.0-1.7) Lipase 173 U/L (73-393) Urine Collection Type Unknown Urine Color Yellow Urine Clarity Clear Urine pH 7.5 Urine Specific Roy <=1.005 Urine Protein Negative mg/dL (NEG-TRACE) Urine Glucose (UA) Negative mg/dL (NEG) Urine Ketones (Stick) Negative mg/dL (NEG) Urine Blood Negative (NEG) Urine Nitrite Negative (NEG) Urine Bilirubin Negative (NEG) Urine Urobilinogen Dipstick 0.2 mg/dL (0.2 mg/dL) Urine Leukocyte Esterase Negative (NEG) Urine RBC 0 /HPF (0-2) Urine WBC 0 /HPF (0-4) Urine Squamous Epithelial Cells Few /LPF Urine Bacteria 0 /HPF (0-FEW) Laboratory Tests 08/27/19 11:15 Laboratory Tests 08/27/19 11:15 EKG EKG [] Interpretation Time: EKG demonstrates normal sinus rhythm with rate of 60. Radiology/Procedures Radiology/Procedures [] Impressions: PROCEDURE: PORTABLE CHEST 1V Examination: PORTABLE CHEST 1V History: Chest pain Comparison/Correlation: 03/05/2019 portable chest x-ray exam Findings: Portable upright frontal view of chest was obtained. Heart size and pulmonary vessels are normal. No infiltrate or significant pleural effusion. Minimal left pleural effusion or pleural thickening noted. No pneumothorax. Bony structures are unremarkable. Impression: No infiltrate. Minimal left pleural effusion or pleural thickening. This is decreased compared to the prior exam. Electronically signed by: Ivan Morrison MD (08/27/2019 11:42 AM) [facility] Course & Med Decision Making Course & Med Decision Making Pertinent Labs and Imaging studies reviewed. (See chart for details) [] Dragon Disclaimer Dragon Disclaimer This electronic medical record was generated, in whole or in part, using a voice recognition dictation system. Departure Departure Impression: Primary Impression: Chest pain Disposition: 09 ADMITTED INPATIENT Admitting Physician: AKSHAT (Dr. Hackett) Condition: IMPROVED Referrals: SACHIN MCNAIR MD (PCP) Problem Qualifiers Primary Impression: Chest pain Chest pain type: unspecified Qualified Codes: R07.9 - Chest pain, unspecified ANGUS HARRSI Jr. DO Aug 27, 2019 11:36
--- NOTE | 2019-08-27 11:38 | EKG ---
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
--- NOTE | 2019-08-27 11:44 | RAD ---
Examination: PORTABLE CHEST 1V History: Chest pain Comparison/Correlation: 03/05/2019 portable chest x-ray exam Findings: Portable upright frontal view of chest was obtained. Heart size and pulmonary vessels are normal. No infiltrate or significant pleural effusion. Minimal left pleural effusion or pleural thickening noted. No pneumothorax. Bony structures are unremarkable. Impression: No infiltrate. Minimal left pleural effusion or pleural thickening. This is decreased compared to the prior exam. Electronically signed by: Ivan Morrison MD (08/27/2019 11:42 AM) [facility]
[2019-08-27 11:45] LABS: PROTHROMBIN TIME PATIENT 12.1 SEC (11.7-14.0)
[2019-08-27 12:52] LABS: BILIRUBIN,URINE NEGATIVE (NEG); CLARITY,URINE CLEAR; COLOR,URINE YELLOW; NITRITE,URINE NEGATIVE (NEG); PH,URINE 7.5; PROTEIN,URINE NEGATIVE (NEG-TRACE); UROBILINOGEN,URINE 0.2 mg/dL (0.2 mg/dL)
--- NOTE | 2019-08-27 13:06 | PDOC1 ---
History and Physical Date of Admission Date of Admission DATE: 08/27/19 TIME: 13:06 Identification/Chief Complaint Chief Complaint seen in er with neg troponin i , complaint of intermittent chest pain that started yesterday. Patient indicates that pain comes and goes and states that when it comes it l asts for about 10-20 seconds. He describes pain as sharp in nature when it comes. denies any exacerbating or alleviating factors. He denies any nausea, vomiting or diaphoresis. He rates pain at a 7 out of 10 when pain is present but states that he has no pain at this time. troponin i neg x 3 Past Medical History Past Medical History Past Medical History Past Medical History Past Medical History: GERD, High Cholesterol, Other Additional Past Medical Histor: AAA, RENAL CYST; prostatitis Past Surgical History: Other Additional Past Surgical Histo: perforated ulcer repair, hernia repair; cardiac cath no stents Alcohol Use: Rarely Drug Use: None Past Medical History Past Medical History: Diabetes-Type II, High Cholesterol, Hypertension, Other Additional Past Medical Histor: AAA 4.7 cm Past Surgical History: No Surgical History Alcohol Use: None Drug Use: None fhx htn Cardiovascular: HTN, Hyperlipidemia, Other Renal/: Chronic renal insuff Endocrine: Diabetes Family History Family History: Hypertension, Other Family History: Parent Social History Smoke: No ALCOHOL: rare Drugs: None Current Medications Current Medications Current Medications Aspirin (Children'S Aspirin) 324 mg 1X ONCE PO Last administered on 08/27/19at 11:15; Start 08/27/19 at 11:15; Stop 08/27/19 at 11:16; Status DC Active Scripts Active Hydrocodone-Apap 5-325 (Hydrocodone Bit/Acetaminophen) 1 Tab Tablet 1 Tab PO PRN Q4HRS PRN 30 Days [Pantoprazole] 40 MG Tablet. 40 Mg PO BIDAC Reported Calcium Carbonate 300 Mg Tab.chew 600 Mg PO DAILY Krill Oil 500 Mg Capsule 500 Mg PO DAILY Vitamin D3 (Cholecalciferol (Vitamin D3)) 1,000 Unit Tablet 2,000 Unit PO DAILY Vitamin C (Ascorbic Acid) 1,000 Mg Tablet 1,000 Mg PO BID Aspir-Low (Aspirin) 81 Mg Tablet. 81 Mg PO DAILY Multi-Vitamin Daily (Multivitamin) 1 Each Tablet 1 Each PO DAILY Finasteride 5 Mg Tablet 1 Tab PO HS Flomax (Tamsulosin Hcl) 0.4 Mg Cap.er.24h 1 Cap PO HS Simvastatin 20 Mg Tablet 1 Tab PO DAILY Allergies Allergies: Coded Allergies: No Known Drug Allergies (Unverified , 12/23/18) ROS Review of System Review of Systems Review of Systems Constitutional: Denies fever or chills [] Respiratory: Denies cough or shortness of breath [] Cardiovascular: No additional information not addressed in HPI [] GI: Denies abdominal pain, nausea, vomiting or diarrhea [] Integument: Denies rash or skin lesions [] Neurologic: Denies headache, focal weakness or sensory changes [] 14 pt systems were reviewed and found to be within normal limits, except as documented General: No: Chills, Night Sweats, Fatigue, Malaise, Appetite, Other PSYCHOLOGICAL ROS: No: Anxiety, Behavioral Disorder, Concentration difficultie, Decreased libido, Depression, Disorientation, Hallucinations, Hostility, Irritablity, Memory difficulties, Mood Swings, Obsessive thoughts, Physical abuse, Sexual abuse, Sleep disturbances, Suicidal ideation, Other ALLERGY AND IMMUNOLOGY: No: Hives, Insect Bite Sensitivity, Itchy/Watery Eyes, Nasal Congestion, Post Nasal Drip, Seasonal Allergies, Other Hematological and Lymphatic: No: Bleeding Problems, Blood Clots, Blood Transfusions, Brusing, Night Sweats, Pallor, Swollen Lymph Nodes, Other Respiratory: No: Cough, Hemoptysis, Orthopnea, Pleuritic Pain, Shortness of breath, SOB with excertion, Sputum Changes, Stridor, Tachypnea, Wheezing, Other Cardiovascular: yes Chest Pain; No Palpitations, No Orthopnea, No Paroxysmal Noc. Dyspnea, No Edema, No Lt Headedness, No Other Gastrointestinal: No Nausea, No Vomiting, No Abdominal Pain, No Diarrhea, No Constipation, No Melena, No Hematochezia, No Other Musculoskeletal: Yes Joint Stiffness Neurological: No Behavorial Changes, No Bowel/Bladder ControlChng, No Confusion, No Dizziness, No Gait Disturbance, No Headaches, No Impaired Coor d/balance, No Memory Loss, No Numbness/Tingling, No Seizures, No Speech Problems, No Tremors, No Visual Changes, No Weakness, No Other Physical Exam Physical Exam Physical Exam Physical Exam Constitutional: Well developed, well nourished, no acute distress, non-toxic appearance. [] HENT: Normocephalic, atraumatic, bilateral external ears normal, oropharynx moist, no oral exudates, nose normal. [] Eyes: PERRLA, EOMI, conjunctiva normal, no discharge. [] Neck: Normal range of motion, no tenderness, supple, no stridor. [] Cardiovascular: Regular rate and rhythm[] Lungs & Thorax: Bilateral breath sounds clear to auscultation [] Abdomen: Bowel sounds normal, soft, no tenderness. [] Skin: Warm, dry, no erythema, no rash. [] Extremities: No tenderness, no cyanosis, no clubbing, ROM intact, no edema. [] Neurologic: Alert and oriented X 3, no focal deficits noted. [] General: Alert, Oriented X3, Cooperative, No acute distress HEENT: Mucous membr. moist/pink Lungs: Clear to auscultation, Normal air movement Heart: RRR, no gallops Abdomen: Normal bowel sounds, Soft Rectal Exam: not examined PELVIC: Examination not indicated Neuro: Normal speech, Cranial nerves 3-12 NL Psych/Mental Status: Mental status NL, Mood NL Vitals Vitals Vital Signs Date Time Temp Pulse Resp B/P (MAP) Pulse Ox O2 Delivery O2 Flow Rate FiO2 08/27/19 11:03 98.0 63 16 142/80 (100) 99 Room Air 98.0 Labs Labs Laboratory Tests Test 08/27/19 11:15 White Blood Count 5.8 x10^3/uL (4.0-11.0) Red Blood Count 3.75 x10^6/uL (4.30-5.70) Hemoglobin 11.6 g/dL (13.0-17.5) Hematocrit 35.0 % (39.0-53.0) Mean Corpuscular Volume 93 fL (79-100) Mean Corpuscular Hemoglobin 31 pg (25-35) Mean Corpuscular Hemoglobin Concent 33 g/dL (31-37) Red Cell Distribution Width 12.9 % (11.5-14.5) Platelet Count 196 x10^3/uL (140-400) Neutrophils (%) (Auto) 63 % (31-73) Lymphocytes (%) (Auto) 23 % (24-48) Monocytes (%) (Auto) 10 % (0-9) Eosinophils (%) (Auto) 3 % (0-3) Basophils (%) (Auto) 1 % (0-3) Neutrophils # (Auto) 3.7 x10^3/uL (1.8-7.7) Lymphocytes # (Auto) 1.3 x10^3/uL (1.0-4.8) Monocytes # (Auto) 0.6 x10^3/uL (0.0-1.1) Eosinophils # (Auto) 0.2 x10^3/uL (0.0-0.7) Basophils # (Auto) 0.1 x10^3/uL (0.0-0.2) Prothrombin Time 12.1 SEC (11.7-14.0) Prothromb Time International Ratio 0.9 (0.8-1.1) Sodium Level 141 mmol/L (136-145) Potassium Level 4.3 mmol/L (3.5-5.1) Chloride Level 104 mmol/L (98-107) Carbon Dioxide Level 30 mmol/L (21-32) Anion Gap 7 (6-14) Blood Urea Nitrogen 24 mg/dL (8-26) Creatinine 1.5 mg/dL (0.7-1.3) Estimated GFR (Cockcroft-Gault) 44.8 BUN/Creatinine Ratio 16 (6-20) Glucose Level 104 mg/dL (70-99) Calcium Level 9.8 mg/dL (8.5-10.1) Magnesium Level 1.7 mg/dL (1.8-2.4) Total Bilirubin 0.4 mg/dL (0.2-1.0) Aspartate Amino Transf (AST/SGOT) 18 U/L (15-37) Alanine Aminotransferase (ALT/SGPT) 21 U/L (16-63) Alkaline Phosphatase 69 U/L (46-116) Troponin I Quantitative < 0.017 ng/mL (0.000-0.055) RJ-Mlw-G-Type Natriuretic Peptide 293 pg/mL (0-449) Total Protein 7.4 g/dL (6.4-8.2) Albumin 3.9 g/dL (3.4-5.0) Albumin/Globulin Ratio 1.1 (1.0-1.7) Lipase 173 U/L (73-393) Laboratory Tests Test 08/27/19 11:15 White Blood Count 5.8 x10^3/uL (4.0-11.0) Red Blood Count 3.75 x10^6/uL (4.30-5.70) Hemoglobin 11.6 g/dL (13.0-17.5) Hematocrit 35.0 % (39.0-53.0) Mean Corpuscular Volume 93 fL (79-100) Mean Corpuscular Hemoglobin 31 pg (25-35) Mean Corpuscular Hemoglobin Concent 33 g/dL (31-37) Red Cell Distribution Width 12.9 % (11.5-14.5) Platelet Count 196 x10^3/uL (140-400) Neutrophils (%) (Auto) 63 % (31-73) Lymphocytes (%) (Auto) 23 % (24-48) Monocytes (%) (Auto) 10 % (0-9) Eosinophils (%) (Auto) 3 % (0-3) Basophils (%) (Auto) 1 % (0-3) Neutrophils # (Auto) 3.7 x10^3/uL (1.8-7.7) Lymphocytes # (Auto) 1.3 x10^3/uL (1.0-4.8) Monocytes # (Auto) 0.6 x10^3/uL (0.0-1.1) Eosinophils # (Auto) 0.2 x10^3/uL (0.0-0.7) Basophils # (Auto) 0.1 x10^3/uL (0.0-0.2) Prothrombin Time 12.1 SEC (11.7-14.0) Prothromb Time International Ratio 0.9 (0.8-1.1) Sodium Level 141 mmol/L (136-145) Potassium Level 4.3 mmol/L (3.5-5.1) Chloride Level 104 mmol/L (98-107) Carbon Dioxide Level 30 mmol/L (21-32) Anion Gap 7 (6-14) Blood Urea Nitrogen 24 mg/dL (8-26) Creatinine 1.5 mg/dL (0.7-1.3) Estimated GFR (Cockcroft-Gault) 44.8 BUN/Creatinine Ratio 16 (6-20) Glucose Level 104 mg/dL (70-99) Calcium Level 9.8 mg/dL (8.5-10.1) Magnesium Level 1.7 mg/dL (1.8-2.4) Total Bilirubin 0.4 mg/dL (0.2-1.0) Aspartate Amino Transf (AST/SGOT) 18 U/L (15-37) Alanine Aminotransferase (ALT/SGPT) 21 U/L (16-63) Alkaline Phosphatase 69 U/L (46-116) Troponin I Quantitative < 0.017 ng/mL (0.000-0.055) FZ-Xqh-M-Type Natriuretic Peptide 293 pg/mL (0-449) Total Protein 7.4 g/dL (6.4-8.2) Albumin 3.9 g/dL (3.4-5.0) Albumin/Globulin Ratio 1.1 (1.0-1.7) Lipase 173 U/L (73-393) Images Images Examination: PORTABLE CHEST 1V History: Chest pain Comparison/Correlation: 03/05/2019 portable chest x-ray exam Findings: Portable upright frontal view of chest was obtained. Heart size and pulmonary vessels are normal. No infiltrate or significant pleural effusion. Minimal left pleural effusion or pleural thickening noted. No pneumothorax. Bony structures are unremarkable. Impression: No infiltrate. Minimal left pleural effusion or pleural thickening. This is decreased compared to the prior exam. Electronically signed by: Kailash Choi MD (08/27/2019 11:42 AM) [facility] DICTATED and SIGNED BY: KAILASH CHOI MD DATE: 08/27/19 1142 VTE Prophylaxis Ordered VTE Prophylaxis Devices: No VTE Pharmacological Prophylaxi: Yes Assessment/Plan Assessment/Plan Impression: chest pain Minimal left pleural effusion or pleural thickening. This is decreased compared to the prior exam. by cxr hx bph hx hyperlipidemia hx mild hyperglycemia, monitor plan admit cvc bed serial troponin i echo cardiology consult dvt prophylaxis ORTEGA ANTONY MD Aug 27, 2019 13:06
[2019-08-27 13:11] LABS: BACTERIA,URINE 0 /HPF (0-FEW); RBC,URINE 0 /HPF (0-2); SQUAMOUS EPITHELIAL CELL,UR FEW /LPF; WBC,URINE 0 /HPF (0-4)
[2019-08-27] MEDS ORDERED: ONDANSETRON PF 4 MG/2 ML VIAL. IV PRN ×2 (13:15→21:00)
[2019-08-27] MEDS ORDERED: MORPHINE SULFATE 2 MG/ML VIAL. IV PRN (13:15)
[2019-08-27 19:00] VITALS: BP 143/69
[2019-08-27] MEDS ORDERED: TAMSULOSIN 0.4 MG CAP.ER.24H. PO SCH (21:00)
[2019-08-27] MEDS ORDERED: FINASTERIDE 5 MG TABLET. PO SCH (21:00)
[2019-08-27] MEDS ORDERED: ALBUTEROL SULFATE 2.5 MG/3 ML NEBU. NEB PRN (21:00)
[2019-08-27] MEDS ORDERED: MAG HYDROX/ALUMINUM HYD/SIMETH 30 ML ORAL.SUSP PO PRN (21:00)
[2019-08-27] MEDS ORDERED: ZOLPIDEM 5 MG TABLET. PO PRN (21:00)
[2019-08-27] MEDS ORDERED: DOCUSATE SODIUM 100 MG CAPSULE. PO PRN (21:00)
[2019-08-27] MEDS ORDERED: guaiFENesin ORAL 200 MG/10 ML LIQUID. PO PRN (21:00)
[2019-08-27] MEDS ORDERED: 0.9 % SODIUM CHLORIDE 10 ML DISP.SYRIN. IV PRN (21:00)
[2019-08-27] MEDS ORDERED: LORazepam 0.5 MG TABLET PO PRN (21:00)
[2019-08-27] MEDS ORDERED: ACETAMINOPHEN 325 MG TABLET. PO PRN (21:00)
[2019-08-27] MEDS ORDERED: cloNIDine HCL 0.1 MG TABLET PO PRN (21:00)
[2019-08-27] MEDS ORDERED: SIMVASTATIN 20 MG TABLET ONE (21:07)
[2019-08-27] MEDS ORDERED: PANTOPRAZOLE 40 MG TABLET.DR. PO ONE ×2 (21:07→21:45)
[2019-08-27] MEDS: ASCORBIC ACID 500 MG TABLET PO SCH (21:35)
[2019-08-27] MEDS: PANTOPRAZOLE 40 MG TABLET.DR. PO SCH (21:37)
[2019-08-27] MEDS ORDERED: SIMVASTATIN 20 MG TABLET PO SCH (22:00)
[2019-08-27 23:00] VITALS: BP 112/64
[2019-08-28 03:00] VITALS: BP 107/71
[2019-08-28 07:00] VITALS: BP 117/74
[2019-08-28] MEDS ORDERED: ENOXAPARIN 40 MG/0.4 ML SYRINGE. SQ SCH (09:00)
[2019-08-28] MEDS ORDERED: CHOLECALCIFEROL (VITAMIN D3) 1,000 UNIT TABLET PO SCH (09:00)
[2019-08-28] MEDS ORDERED: ASPIRIN ENTERIC COATED 81 MG TABLET.DR. PO SCH (09:00)
[2019-08-28] MEDS ORDERED: MULTIVITAMIN with MINERAL TABLET. PO SCH (09:00)
[2019-08-28] MEDS ORDERED: CALCIUM CARBONATE 500 MG TABLET PO SCH (09:00)
[2019-08-28] MEDS ORDERED: KRILL OIL 500 MG PO SCH (09:00)
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
[2019-08-28 10:58] LABS: CHOLESTEROL/HDL RATIO 1.9
[2019-08-28 11:39] VITALS: BP 115/75
--- NOTE | 2019-08-28 12:15 | NUR ---
SS following for discharge planning. SS reviewed pt chart. Pt is from home with spouse and is currently on room air. SS will continue to follow for discharge planning.
[2019-08-28] MEDS: ASCORBIC ACID 500 MG TABLET PO SCH (13:08)
[2019-08-28] MEDS: PANTOPRAZOLE 40 MG TABLET.DR. PO SCH ×2 (13:08→18:08)
--- NOTE | 2019-08-28 13:25 | PDOC ---
PROGRESS NOTES Chief Complaint Chief Complaint Atypical chest pain Anemia HTN HLP DM2 Hx of AAA PUD History of Present Illness History of Present Illness Mr Meyer is an 83 yo M w/ PMHx GERD, AAA, HLD, PUD with prior perforation complaint of intermittent chest pain that started on 08/26/19. Patient indicates that pain comes and goes and states that when it comes it lasts for about 10-20 seconds. He describes pain as sharp in nature when it comes. Denies any exacerbating or alleviating factors. He denies any nausea, vomiting or diaphoresis. He rates pain at a 7 out of 10 when pain is present but states that he has no pain at this time. Troponin i neg x 3. Seen by cardiology. He is feeling improved. Awaiting echocardiogram currently. No SOB Vitals Vitals Vital Signs Date Time Temp Pulse Resp B/P (MAP) Pulse Ox O2 Delivery O2 Flow Rate FiO2 08/28/19 11:39 97.8 89 20 115/75 (88) 92 Room Air 97.8 Physical Exam General: Alert, Oriented X3, Cooperative, No acute distress Lungs: Clear Abdomen: Normal bowel sounds, Soft Labs LABS Laboratory Tests Test 08/27/19 16:05 08/27/19 18:55 08/28/19 10:10 Troponin I Quantitative < 0.017 ng/mL (0.000-0.055) < 0.017 ng/mL (0.000-0.055) Triglycerides Level 32 mg/dL (0-150) Cholesterol Level 126 mg/dL (0-200) LDL Cholesterol, Calculated 55 mg/dL (0-100) VLDL Cholesterol, Calculated 6 mg/dL (0-40) Non-HDL Cholesterol Calculated 61 mg/dL (0-129) HDL Cholesterol 65 mg/dL (40-60) Cholesterol/HDL Ratio 1.9 Thyroid Stimulating Hormone (TSH) 1.366 uIU/mL (0.358-3.74) Comment Review of Relevant I have reviewed the following items hunter (where applicable) has been applied. Labs Laboratory Tests Test 08/27/19 11:15 08/27/19 12:42 08/27/19 16:05 08/27/19 18:55 White Blood Count 5.8 x10^3/uL (4.0-11.0) Red Blood Count 3.75 x10^6/uL (4.30-5.70) Hemoglobin 11.6 g/dL (13.0-17.5) Hematocrit 35.0 % (39.0-53.0) Mean Corpuscular Volume 93 fL (79-100) Mean Corpuscular Hemoglobin 31 pg (25-35) Mean Corpuscular Hemoglobin Concent 33 g/dL (31-37) Red Cell Distribution Width 12.9 % (11.5-14.5) Platelet Count 196 x10^3/uL (140-400) Neutrophils (%) (Auto) 63 % (31-73) Lymphocytes (%) (Auto) 23 % (24-48) Monocytes (%) (Auto) 10 % (0-9) Eosinophils (%) (Auto) 3 % (0-3) Basophils (%) (Auto) 1 % (0-3) Neutrophils # (Auto) 3.7 x10^3/uL (1.8-7.7) Lymphocytes # (Auto) 1.3 x10^3/uL (1.0-4.8) Monocytes # (Auto) 0.6 x10^3/uL (0.0-1.1) Eosinophils # (Auto) 0.2 x10^3/uL (0.0-0.7) Basophils # (Auto) 0.1 x10^3/uL (0.0-0.2) Prothrombin Time 12.1 SEC (11.7-14.0) Prothromb Time International Ratio 0.9 (0.8-1.1) Sodium Level 141 mmol/L (136-145) Potassium Level 4.3 mmol/L (3.5-5.1) Chloride Level 104 mmol/L (98-107) Carbon Dioxide Level 30 mmol/L (21-32) Anion Gap 7 (6-14) Blood Urea Nitrogen 24 mg/dL (8-26) Creatinine 1.5 mg/dL (0.7-1.3) Estimated GFR (Cockcroft-Gault) 44.8 BUN/Creatinine Ratio 16 (6-20) Glucose Level 104 mg/dL (70-99) Calcium Level 9.8 mg/dL (8.5-10.1) Magnesium Level 1.7 mg/dL (1.8-2.4) Total Bilirubin 0.4 mg/dL (0.2-1.0) Aspartate Amino Transf (AST/SGOT) 18 U/L (15-37) Alanine Aminotransferase (ALT/SGPT) 21 U/L (16-63) Alkaline Phosphatase 69 U/L (46-116) Troponin I Quantitative < 0.017 ng/mL (0.000-0.055) < 0.017 ng/mL (0.000-0.055) < 0.017 ng/mL (0.000-0.055) QJ-Giy-J-Type Natriuretic Peptide 293 pg/mL (0-449) Total Protein 7.4 g/dL (6.4-8.2) Albumin 3.9 g/dL (3.4-5.0) Albumin/Globulin Ratio 1.1 (1.0-1.7) Lipase 173 U/L (73-393) Urine Collection Type Unknown Urine Color Yellow Urine Clarity Clear Urine pH 7.5 Urine Specific [place] <=1.005 Urine Protein Negative mg/dL (NEG-TRACE) Urine Glucose (UA) Negative mg/dL (NEG) Urine Ketones (Stick) Negative mg/dL (NEG) Urine Blood Negative (NEG) Urine Nitrite Negative (NEG) Urine Bilirubin Negative (NEG) Urine Urobilinogen Dipstick 0.2 mg/dL (0.2 mg/dL) Urine Leukocyte Esterase Negative (NEG) Urine RBC 0 /HPF (0-2) Urine WBC 0 /HPF (0-4) Urine Squamous Epithelial Cells Few /LPF Urine Bacteria 0 /HPF (0-FEW) Test 08/28/19 10:10 Triglycerides Level 32 mg/dL (0-150) Cholesterol Level 126 mg/dL (0-200) LDL Cholesterol, Calculated 55 mg/dL (0-100) VLDL Cholesterol, Calculated 6 mg/dL (0-40) Non-HDL Cholesterol Calculated 61 mg/dL (0-129) HDL Cholesterol 65 mg/dL (40-60) Cholesterol/HDL Ratio 1.9 Thyroid Stimulating Hormone (TSH) 1.366 uIU/mL (0.358-3.74) Laboratory Tests Test 08/27/19 16:05 08/27/19 18:55 08/28/19 10:10 Troponin I Quantitative < 0.017 ng/mL (0.000-0.055) < 0.017 ng/mL (0.000-0.055) Triglycerides Level 32 mg/dL (0-150) Cholesterol Level 126 mg/dL (0-200) LDL Cholesterol, Calculated 55 mg/dL (0-100) VLDL Cholesterol, Calculated 6 mg/dL (0-40) Non-HDL Cholesterol Calculated 61 mg/dL (0-129) HDL Cholesterol 65 mg/dL (40-60) Cholesterol/HDL Ratio 1.9 Thyroid Stimulating Hormone (TSH) 1.366 uIU/mL (0.358-3.74) Medications Current Medications Aspirin (Children'S Aspirin) 324 mg 1X ONCE PO Last administered on 08/27/19at 11:15; Start 08/27/19 at 11:15; Stop 08/27/19 at 11:16; Status DC Ondansetron HCl (Zofran) 4 mg PRN Q8HRS PRN IV NAUSEA/VOMITING; Start 08/27/19 at 13:15; Stop 08/28/19 at 13:14; Status DC Morphine Sulfate (Morphine Sulfate) 2 mg PRN Q2HR PRN IV PAIN; Start 08/27/19 at 13:15; Stop 08/28/19 at 13:14; Status DC Aspirin (Ecotrin) 81 mg DAILY PO Last administered on 08/28/19at 09:24; Start 08/28/19 at 09:00 Vitamin D (Vitamin D3) 2,000 unit DAILY PO Last administered on 08/28/19at 13:08; Start 08/28/19 at 09:00 Finasteride (Proscar) 5 mg HS PO Last administered on 08/27/19at 21:34; Start 08/27/19 at 21:00 Simvastatin (Zocor) 20 mg QHS PO Last administered on 08/27/19at 21:35; Start 08/27/19 at 22:00 Tamsulosin HCl (Flomax) 0.4 mg HS PO Last administered on 08/27/19at 21:34; Start 08/27/19 at 21:00 Ascorbic Acid (Vitamin C) 1,000 mg BID PO Last administered on 08/28/19at 13:08; Start 08/27/19 at 22:00 Calcium Carbonate/ Glycine (Oscal) 500 mg DAILY PO Last administered on 08/28/19at 13:08; Start 08/28/19 at 09:00 Non-Formulary Medication (Krill Oil ) 500 mg DAILY PO ; Start 08/28/19 at 0 9:00; Status UNV Multivitamins (Thera M Plus) 1 tab DAILY PO Last administered on 08/28/19at 13:08; Start 08/28/19 at 09:00 Pantoprazole Sodium (Protonix) 40 mg BIDAC PO Last administered on 08/28/19at 13:08; Start 08/28/19 at 07:30 Sodium Chloride (Normal Saline Flush) 3 ml QSHIFT PRN IV AFTER MEDS AND BLOOD DRAWS; Start 08/27/19 at 21:00 Ondansetron HCl (Zofran) 4 mg PRN Q4HRS PRN IV NAUSEA/VOMITING; Start 08/27/19 at 21:00 Zolpidem Tartrate (Ambien) 5 mg PRN QHS PRN PO INSOMNIA; Start 08/27/19 at 21:00 Acetaminophen (Tylenol) 650 mg PRN Q4HRS PRN PO TEMP OVER 100.4F OR MILD PAIN; Start 08/27/19 at 21:00 Al Hydroxide/Mg Hydroxide (Mylanta Plus Xs) 30 ml PRN DAILY PRN PO HEARTBURN / GAS; Start 08/27/19 at 21:00 Clonidine HCl (Catapres) 0.1 mg PRN Q6HRS PRN PO SBP>160 OR DBP>90; Start 08/27/19 at 21:00 Docusate Sodium (Colace) 100 mg PRN BID PRN PO CONSTIPATION; Start 08/27/19 at 21:00 Albuterol Sulfate (Ventolin Neb Soln) 2.5 mg PRN Q4HRS PRN NEB SHORTNESS OF BREATH; Start 08/27/19 at 21:00 Guaifenesin (Robitussin) 200 mg PRN Q4HRS PRN PO COUGH; Start 08/27/19 at 21:00 Lorazepam (Ativan) 0.5 mg PRN Q4HRS PRN PO ANXIETY / AGITATION; Start 08/27/19 at 21:00 Enoxaparin Sodium (Lovenox 40mg Syringe) 40 mg DAILY SQ Last administered on at 13:09; Start 08/28/19 at 09:00 Simvastatin (Zocor) 20 mg STK-MED ONCE .ROUTE ; Start 08/27/19 at 21:07; Stop 08/27/19 at 21:07; Status DC Pantoprazole Sodium (Protonix) 40 mg STK-MED ONCE PO ; Start 08/27/19 at 21:07; Stop 08/27/19 at 21:08; Status DC Pantoprazole Sodium (Protonix) 40 mg 1X ONCE PO Last administered on 08/27/19at 21:45; Start 08/27/19 at 21:45; Stop 08/27/19 at 21:46; Status DC Active Scripts Active [Pantoprazole] 40 MG Tablet.dr 40 Mg PO BIDAC Reported Calcium Carbonate 300 Mg Tab.chew 600 Mg PO DAILY Krill Oil 500 Mg Capsule 500 Mg PO DAILY Vitamin D3 (Cholecalciferol (Vitamin D3)) 1,000 Unit Tablet 2,000 Unit PO DAILY Vitamin C (Ascorbic Acid) 1,000 Mg Tablet 1,000 Mg PO BID Aspir-Low (Aspirin) 81 Mg Tablet.dr 81 Mg PO DAILY Multi-Vitamin Daily (Multivitamin) 1 Each Tablet 1 Each PO DAILY Finasteride 5 Mg Tablet 1 Tab PO HS Flomax (Tamsulosin Hcl) 0.4 Mg Cap.er.24h 1 Cap PO HS Simvastatin 20 Mg Tablet 1 Tab PO DAILY Vitals/I & O Vital Sign - Last 24 Hours 08/27/19 08/27/19 08/27/19 08/27/19 13:33 14:03 15:00 16:00 Pulse 56 60 74 70 Resp 16 16 16 16 B/P (MAP) 125/79 (94) 147/79 (101) 155/78 (103) 114/68 (83) Pulse Ox 97 97 98 100 O2 Delivery Room Air 08/27/19 08/27/19 08/27/19 08/28/19 16:37 19:00 23:00 03:00 Temp 98.0 98.4 98.3 98.0 98.4 98.3 Pulse 68 59 59 63 Resp 16 20 20 20 B/P (MAP) 119/69 (86) 143/69 (93) 112/64 (80) 107/71 (83) Pulse Ox 96 95 95 95 O2 Delivery Room Air Room Air Room Air Room Air 08/28/19 08/28/19 08/28/19 07:00 08:00 11:39 Temp 97.8 97.8 97.8 97.8 Pulse 70 89 Resp 20 20 B/P (MAP) 117/74 (88) 115/75 (88) Pulse Ox 93 92 O2 Delivery Room Air Room Air Room Air Intake and Output 08/27/19 08/27/19 08/28/19 15:00 23:00 07:00 Intake Total 200 ml 200 ml Balance 200 ml 200 ml JANETH ROSS MD Aug 28, 2019 13:25
[2019-08-28 14:52] VITALS: BP 135/76
--- NOTE | 2019-08-28 16:07 | CARD ---
MR#: [id number] Date of Study: 08/28/2019 Ordering Physician: ORTEGA ANTONY, Referring Physician: ORTEGA ANTONY, Tech: Candace Carver APPROVED REPORT EXAM: Two-dimensional and M-mode echocardiogram with Doppler and color Doppler. Other Information Quality : AverageHR: 59bpm INDICATION Chest Pain 2D DIMENSIONS RVDd3.7 (2.9-3.5cm)Left Atrium(2D)3.8 (1.6-4.0cm) IVSd1.1 (0.7-1.1cm)Aortic Root(2D)3.3 (2.0-3.7cm) LVDd4.8 (3.9-5.9cm)LVOT Diameter2.2 (1.8-2.4cm) PWd1.1 (0.7-1.1cm)LVDs3.4 (2.5-4.0cm) FS (%) 29.6 %SV60.2 ml LVEF(%)56.5 (>50%) Aortic Valve AoV Peak Jose.142.4cm/sAoV VTI26.6cm AO Peak GR.8.1mmHgLVOT Peak Jose.124.1cm/s LVOT VTI 24.44cmAO Mean GR.4mmHg SAM (VMAX)2.66ln1QAO (VTI)3.54cm2 Mitral Valve MV E Rszuaakl17.4cm/sMV DECEL TNYS560je MV A Kmygelss12.2cm/sMV CJU87dz E/A Ratio0.9MVA (PHT)2.50cm2 TDI E/Lateral E'4.9E/Medial E'6.9 Pulmonary Valve PV Peak Jawfsuct17.8cm/sPV Peak Grad.4mmHg Tricuspid Valve TR P. Fgdepjru595jq/sRAP HDIXXIES9bbCz TR Peak Gr.37tfQiCXBQ31vrZl Pulmonary Vein S1 Mgyjddoe28.1cm/sD2 Fjqqmxsc02.9cm/s PVa lyhkqdwf385qanm LEFT VENTRICLE The left ventricle is normal size. There is mild concentric left ventricular hypertrophy. The left ve ntricular systolic function is normal. The Ejection Fraction is 55-60%. There is normal LV segmental wall motion. Transmitral Doppler flow pattern is Grade II-pseudonormal filling dynamics. RIGHT VENTRICLE The right ventricle is normal size. There is normal right ventricular wall thickness. The right ventr icular systolic function is normal. ATRIA The left atrium size is normal. The right atrium is borderline dilated. The interatrial septum is int act with no evidence for an atrial septal defect or patent foramen ovale as noted on 2-D or Doppler i maging. AORTIC VALVE The aortic valve is calcified but opens well. Doppler and Color Flow revealed no significant aortic r egurgitation. There is no significant aortic valvular stenosis. MITRAL VALVE The mitral valve is normal in structure and function. There is no evidence of mitral valve prolapse. There is no mitral valve stenosis. Doppler and Color Flow revealed no mitral valve regurgitation note d. TRICUSPID VALVE The tricuspid valve is normal in structure and function. Doppler and Color Flow revealed trace tricus pid regurgitation with an estimated PAP of 26 mmHg. There is no tricuspid valve stenosis. PULMONIC VALVE The pulmonic valve is not well visualized. Doppler and Color Flow revealed trace pulmonic valvular re gurgitation. GREAT VESSELS The aortic root is normal in size. The IVC is normal in size and collapses >50% with inspiration. PERICARDIAL EFFUSION There is no evidence of significant pericardial effusion. Critical Notification Critical Value: No <Conclusion> The left ventricular systolic function is normal. The Ejection Fraction is 55-60%. There is normal LV segmental wall motion. Transmitral Doppler flow pattern is Grade II-pseudonormal filling dynamics. Trace tricuspid regurgitation with an estimated PAP of 26 mmHg. There is no evidence of significant pericardial effusion. Signed by : Archie Tabor, Electronically Approved : 08/28/2019 16:06:51
--- NOTE | 2019-08-28 17:22 | PDOC3 ---
Discharge Summary Visit Information Date of Admission: Aug 27, 2019 Date of Discharge: Aug 28, 2019 Admitting Diagnosis: Chest pain Final Diagnosis Hypertensive urgency, chest pain Brief Hospital Course Allergies Allergies Coded Allergies Type Severity Reaction Last Updated Verified No Known Drug Allergies 12/23/18 No Vital Signs Vital Signs Date Time Temp Pulse Resp B/P (MAP) Pulse Ox O2 Delivery O2 Flow Rate FiO2 08/28/19 14:52 97.9 73 20 135/76 (95) 96 Room Air 97.9 Lab Results Laboratory Tests Test 08/27/19 11:15 08/27/19 12:42 08/27/19 16:05 08/27/19 18:55 White Blood Count 5.8 x10^3/uL (4.0-11.0) Red Blood Count 3.75 x10^6/uL (4.30-5.70) Hemoglobin 11.6 g/dL (13.0-17.5) Hematocrit 35.0 % (39.0-53.0) Mean Corpuscular Volume 93 fL (79-100) Mean Corpuscular Hemoglobin 31 pg (25-35) Mean Corpuscular Hemoglobin Concent 33 g/dL (31-37) Red Cell Distribution Width 12.9 % (11.5-14.5) Platelet Count 196 x10^3/uL (140-400) Neutrophils (%) (Auto) 63 % (31-73) Lymphocytes (%) (Auto) 23 % (24-48) Monocytes (%) (Auto) 10 % (0-9) Eosinophils (%) (Auto) 3 % (0-3) Basophils (%) (Auto) 1 % (0-3) Neutrophils # (Auto) 3.7 x10^3/uL (1.8-7.7) Lymphocytes # (Auto) 1.3 x10^3/uL (1.0-4.8) Monocytes # (Auto) 0.6 x10^3/uL (0.0-1.1) Eosinophils # (Auto) 0.2 x10^3/uL (0.0-0.7) Basophils # (Auto) 0.1 x10^3/uL (0.0-0.2) Prothrombin Time 12.1 SEC (11.7-14.0) Prothromb Time International Ratio 0.9 (0.8-1.1) Sodium Level 141 mmol/L (136-145) Potassium Level 4.3 mmol/L (3.5-5.1) Chloride Level 104 mmol/L (98-107) Carbon Dioxide Level 30 mmol/L (21-32) Anion Gap 7 (6-14) Blood Urea Nitrogen 24 mg/dL (8-26) Creatinine 1.5 mg/dL (0.7-1.3) Estimated GFR (Cockcroft-Gault) 44.8 BUN/Creatinine Ratio 16 (6-20) Glucose Level 104 mg/dL (70-99) Calcium Level 9.8 mg/dL (8.5-10.1) Magnesium Level 1.7 mg/dL (1.8-2.4) Total Bilirubin 0.4 mg/dL (0.2-1.0) Aspartate Amino Transf (AST/SGOT) 18 U/L (15-37) Alanine Aminotransferase (ALT/SGPT) 21 U/L (16-63) Alkaline Phosphatase 69 U/L (46-116) Troponin I Quantitative < 0.017 ng/mL (0.000-0.055) < 0.017 ng/mL (0.000-0.055) < 0.017 ng/mL (0.000-0.055) EJ-Gag-P-Type Natriuretic Peptide 293 pg/mL (0-449) Total Protein 7.4 g/dL (6.4-8.2) Albumin 3.9 g/dL (3.4-5.0) Albumin/Globulin Ratio 1.1 (1.0-1.7) Lipase 173 U/L (73-393) Urine Collection Type Unknown Urine Color Yellow Urine Clarity Clear Urine pH 7.5 Urine Specific [place] <=1.005 Urine Protein Negative mg/dL (NEG-TRACE) Urine Glucose (UA) Negative mg/dL (NEG) Urine Ketones (Stick) Negative mg/dL (NEG) Urine Blood Negative (NEG) Urine Nitrite Negative (NEG) Urine Bilirubin Negative (NEG) Urine Urobilinogen Dipstick 0.2 mg/dL (0.2 mg/dL) Urine Leukocyte Esterase Negative (NEG) Urine RBC 0 /HPF (0-2) Urine WBC 0 /HPF (0-4) Urine Squamous Epithelial Cells Few /LPF Urine Bacteria 0 /HPF (0-FEW) Test 08/28/19 10:10 Triglycerides Level 32 mg/dL (0-150) Cholesterol Level 126 mg/dL (0-200) LDL Cholesterol, Calculated 55 mg/dL (0-100) VLDL Cholesterol, Calculated 6 mg/dL (0-40) Non-HDL Cholesterol Calculated 61 mg/dL (0-129) HDL Cholesterol 65 mg/dL (40-60) Cholesterol/HDL Ratio 1.9 Thyroid Stimulating Hormone (TSH) 1.366 uIU/mL (0.358-3.74) Laboratory Tests Test 08/27/19 18:55 08/28/19 10:10 Troponin I Quantitative < 0.017 ng/mL (0.000-0.055) Triglycerides Level 32 mg/dL (0-150) Cholesterol Level 126 mg/dL (0-200) LDL Cholesterol, Calculated 55 mg/dL (0-100) VLDL Cholesterol, Calculated 6 mg/dL (0-40) Non-HDL Cholesterol Calculated 61 mg/dL (0-129) HDL Cholesterol 65 mg/dL (40-60) Cholesterol/HDL Ratio 1.9 Thyroid Stimulating Hormone (TSH) 1.366 uIU/mL (0.358-3.74) Brief Hospital Course Mr Meyer is an 83 yo M w/ PMHx GERD, AAA, HLD, PUD with prior perforation complaint of intermittent chest pain that started on 08/26/19. Patient indicates that pain comes and goes and states that when it comes it lasts for about 10-20 seconds. He describes pain as sharp in nature when it comes. Denies any exacerbating or alleviating factors. He denies any nausea, vomiting or diaphoresis. He rates pain at a 7 out of 10 when pain is present but states that he has no pain at this time. Troponin i neg x 3. Seen by cardiology. He is feeling improved. No SOB Echo: The left ventricular systolic function is normal. The Ejection Fraction is 55-60%. There is normal LV segmental wall motion. Transmitral Doppler flow pattern is Grade II-pseudonormal filling dynamics. Trace tricuspid regurgitation with an estimated PAP of 26 mmHg. There is no evidence of significant pericardial effusion. Problem list: Atypical chest pain Anemia HTN HLP DM2 Hx of AAA PUD Greater than 30 minutes spent on d/c Discharge Information Condition at Discharge: Improved Follow Up: Weeks (1) Disposition/Orders: D/C to Home Scheduled Ascorbic Acid (Vitamin C) 1,000 Mg Tablet, 1,000 MG PO BID for SUPPLEMENT, (Reported) Entered as Reported by: ESTELA MASON on 12/23/18827 Last Action: Converted on 08/27/192050 by ORTEGA JONES Aspirin (Aspir-Low) 81 Mg Tablet.dr, 81 MG PO DAILY for UNKNOWN, (Reported) Entered as Reported by: ESTELA MASON on 12/23/18827 Last Action: Continued on 08/27/192050 by ORTEGA JONES Calcium Carbonate (Calcium Carbonate) 300 Mg Tab.chew, 600 MG PO DAILY for UNKNOWN, (Reported) Entered as Reported by: ESTELA MASON on 12/23/18829 Last Action: Converted on 08/27/192050 by ORTEGA JONES Cholecalciferol (Vitamin D3) (Vitamin D3) 1,000 Unit Tablet, 2,000 UNIT PO DAILY for SUPPLEMENT, (Reported) Entered as Reported by: ESTELA MASON on 12/23/18828 Last Action: Continued on 08/27/192050 by ORTEGA JONES Finasteride (Finasteride) 5 Mg Tablet, 1 TAB PO HS, #30 Ref 11 (Reported) Entered as Reported by: ZAC WATTS on 05/02/182251 Last Action: Continued on 08/27/192050 by ORTEGA JONES Krill Oil (Krill Oil) 500 Mg Capsule, 500 MG PO DAILY for SUPPLEMENT, (Reported) Entered as Reported by: ESTELA MASON on 12/23/18829 Last Action: Converted on 08/27/192050 by ORTEGA JONES Multivitamin (Multi-Vitamin Daily) 1 Each Tablet, 1 EACH PO DAILY, (Reported) Entered as Reported by: ZAC WATTS on 05/02/182299 Last Action: Converted on 08/27/192050 by ORTEGA JONES Simvastatin (Simvastatin) 20 Mg Tablet, 1 TAB PO DAILY, #30 Ref 5 (Reported) Entered as Reported by: DAYLIN CHEN on 09/08/15 1557 Last Action: Continued on 08/27/192050 by ORTEGA JONES Tamsulosin Hcl (Flomax) 0.4 Mg Cap.er.24h, 1 CAP PO HS, #30 Ref 11 (Reported) Entered as Reported by: ZAC WATTS on 05/02/182251 Last Action: Continued on 08/27/192050 by ORTEGA JONES [Pantoprazole] 40 MG TABLET., 40 MG PO BIDAC, #60 Ref 0 Prescribed by: Amparo Pedro on 03/08/18 0848 Last Action: Converted on 08/27/192050 by JANETH KAUR MD Aug 28, 2019 17:22
[2019-08-29 01:08] LABS: HEMOGLOBIN A1C 5.8 % (4.8-5.6)
== END 2019-08-28 18:30 | disposition home or self-care (01) | DRG 305 ==
LOC: ER 10:56 → ED HOLD 13:08 → 2 NORTH 16:57
PROVIDERS: ADMIT Family Medicine; ATTEND Family Medicine
DX: I16.0 Hypertensive urgency (principal); R07.89 Other chest pain; D64.9 Anemia, unspecified; E11.22 Type 2 diabetes mellitus with diabetic chronic kidney disease; E78.00 Pure hypercholesterolemia, unspecified; E78.5 Hyperlipidemia, unspecified; I12.9 Hypertensive chronic kidney disease with stage 1 through stage 4 chronic kidney disease, or unspecified chronic kidney disease; N40.0 Benign prostatic hyperplasia without lower urinary tract symptoms; Z82.49 Family history of ischemic heart disease and other diseases of the circulatory system; Z86.79 Personal history of other diseases of the circulatory system; Z87.11 Personal history of peptic ulcer disease; N18.9 Chronic kidney disease, unspecified; F41.9 Anxiety disorder, unspecified; M19.90 Unspecified osteoarthritis, unspecified site; K21.9 Gastro-esophageal reflux disease without esophagitis
CPT/HCPCS: 36415; 71045; 80053; 80061; 81001; 83036; 83690; 83735; 83880; 84443; 84484; 85025; 85610; 93005; 93306; J1650; 99285-25; G0378

== ENCOUNTER → 2019-09-24 | Outpatient (CLI) | payer MEDICARE ==
[2019-08-28 14:52] VITALS: BP 135/76
[~2019-09-24] MED LIST changes: +REGADENOSON 0.4 MG/5 ML DISP.SYRIN. IV ONE
--- NOTE | 2019-09-25 11:49 | RAD ---
MR#: [id number] Date of Study: 09/25/2019 Ordering Physician: VIRI HERRERA, Referring Physician: LAUREANO CALLE Tech: ANGIE Jackson, ARRT (R) (N) APPROVED REPORT Test Type: Pharmacological Stress Nurse/Tech: Megan Lopez RN Test Indications: Chest Pain Cardiac History: No known cardiac Medications: See Electronic Medical Record Medical History: None per patient Resting ECG: SB wwith 1st AVB Resting Heart Rate: 56 bpm Resting Blood Pressure: 116/64mmHg Pretest Chest Pain: No chest pain Nurse/Tech Notes S1S2, lungs CTA Consent: The procedure was explained to the patient in lay terms. Informed consent was witnessed. Mayo eout was entered into [employer]. History and Stress Test performed by RT Josh (R) (N) Pharm. Details Pharmacologic stress testing was performed using 0.4mg per 5ml of regadenoson given intravenously ove r 7-10 seconds. Stress Symptoms Dyspnea POST EXERCISE Reason for Termination: Infusion complete Max HR: 104 bpm Max Blood Pressure: 120/65mmHg Blood Pressure response to exercise: Normal blood pressure response during stress. Heart Rate response to exercise: WNL Chest Pain: No. Arrhythmia: No. ST Change: No. INTERPRETATION Stress EKG Conclusion: Baseline EKG showed sinus rhythm. No ischemic changes at peak stress. No arr hythmias. Imaging Protocol IMAGE PROTOCOL: Rest Tc-99m/stress Tc-99m 2 days Rest: Stress: Viability: Radiopharm.Tc99m HwrhmpkfoQy52z Sestamibi Mfkh36qQu 35mCi Img Date 09/24/2019 09/25/2019 Inj-Img [id number]. 90min. Rest Admin Site:IV - Right AntecubitalAdministrator:AGNIE Jackson, ARRT (R)(N) Stress Admin Site: IV - Right AntecubitalAdministrator: RT Nany Moreno)(N) STRESS DATA End Diast. Vol.82.0mlLVEDV index BSA40.0ml End Syst. Vol.20.0mlLVESV index BSA10.0ml Myocardial Ipsf472.0gEject. Dqytbwlu10.0% Stress Scores Regional WT0.00Summed WT5.00 Regional WM0.00Summed WM0.00 Study quality was good. Left Ventricular size was Normal at Rest and Stress. Lung uptake was . Left Ventricular ejection fraction is 77%. The rest and stress images show normal perfusion, normal contraction and thickening. LV Perf. Quant 17 Seg. SSS0.00 17 Seg. SRS1.00 17 Seg. SDS0.00 Stress Defect Extent (% LAD)0.00Rest Defect Extent (% LAD)0.00Rev. Defect Extent (% LAD)0.00 Stress Defect Extent (% LCX) 0.00Rest Defect Extent (% LCX)0.00Rev. Defect Extent (% LCX)0.00 Stress Defect Extent (% RCA)0.00Rest Defect Extent (% RCA)0.00Rev. Defect Extent (% RCA)0.00 Stress Defect Extent (% ELVIRA)0.00Rest Defect Extent (% ELVIRA)0.00Rev. Defect Extent (% ELVIRA)0.00 Conclusion 1. Regadenoson cardioisotope stress test did not show any evidence of ischemia or infarct. 2. Normal left ventricular systolic function with ejection fraction calculated at 77%. 3. Low risk for cardiac events. Signed by : Viri Herrera, Electronically Approved : 09/25/2019 11:49:34
== END | disposition home or self-care (01) ==
LOC: NM 07:27
PROVIDERS: ATTEND Internal Medicine Cardiovascular Disease
DX: R07.9 Chest pain, unspecified (principal)
CPT/HCPCS: 78452; 93017; A9500; J2785

== ENCOUNTER → 2020-06-10 | Outpatient (CLI) | payer MEDICARE ==
[~2020-06-10] MED LIST changes: -ASCO-219 PO; +ASCO100019 PO; -ASCO10002 PO; +ASCO500T53 PO; -LISI1TAB19 PO; +LISI1TAB37 PO; -REGADENOSON 0.4 MG/5 ML DISP.SYRIN. IV ONE
[2020-06-10 11:56] LABS: ALBUMIN 3.7 g/dL (3.4-5.0); CALCIUM 9.5 mg/dL (8.5-10.1); CREATININE 1.5 mg/dL (0.7-1.3); GFR 44.7; PHOSPHORUS 3.1 mg/dL (2.6-4.7); POTASSIUM 4.6 mmol/L (3.5-5.1)
[2020-06-11 01:09] LABS: CALCIUM PTH 9.7 mg/dL (8.6-10.2); CREATININE PTH 1.53 mg/dL (0.76-1.27); PTH INTACT 23 pg/mL (15-65)
== END | disposition home or self-care (01) ==
LOC: LAB 11:03
PROVIDERS: ATTEND Internal Medicine Nephrology
DX: I12.9 Hypertensive chronic kidney disease with stage 1 through stage 4 chronic kidney disease, or unspecified chronic kidney disease (principal); E11.21 Type 2 diabetes mellitus with diabetic nephropathy; D64.9 Anemia, unspecified; N40.1 Benign prostatic hyperplasia with lower urinary tract symptoms
CPT/HCPCS: 36415; 80069; 82728; 83540; 83550; 83970

== ENCOUNTER → 2021-05-11 | Outpatient (CLI) | payer MEDICARE ==
[~2021-05-11] MED LIST changes: +LISI10TA16 PO; -LISI10TA2 PO; +REGADENOSON 0.4 MG/5 ML DISP.SYRIN. IV ONE
--- NOTE | 2021-05-11 21:55 | CARD ---
MR#: [id number] Date of Study: 05/11/2021 Ordering Physician: VIRI HERRERA, Referring Physician: VIRI HERRERA Tech: Penelope Nogueira [facility] APPROVED REPORT EXAM: Two-dimensional and M-mode echocardiogram with Doppler and color Doppler. Other Information Quality : GoodHR: 52bpm Rhythm : NSR INDICATION RISK FACTORS Hyperlipidemia 2D DIMENSIONS RVDd3.6 (2.9-3.5cm)Left Atrium(2D)4.5 (1.6-4.0cm) IVSd0.9 (0.7-1.1cm)Aortic Root(2D)3.5 (2.0-3.7cm) LVDd4.5 (3.9-5.9cm)LVOT Diameter2.3 (1.8-2.4cm) PWd1.0 (0.7-1.1cm)LVDs3.0 (2.5-4.0cm) FS (%) 34.5 %SV59.7 ml LVEF(%)63.7 (>50%) Aortic Valve AoV Peak Jose.140.3cm/sAoV VTI35.2cm AO Peak GR.7.9mmHgLVOT Peak Jose.119.6cm/s AO Mean GR.3mmHgAVA (VMAX)3.68cm2 Mitral Valve MV E Taxaghpb98.0cm/sMV DECEL [id number] MV A Ivzzhbyn18.9cm/sE/A Ratio1.4 Pulmonary Valve PV Peak Zheswgcs93.5cm/s Tricuspid Valve TR P. Vfczwkqj834gb/sTR Peak Gr.31mmHg LEFT VENTRICLE The left ventricle is normal size. There is normal left ventricular wall thickness. The left ventricu lar systolic function is normal and the ejection fraction is within normal range. EF 55% There is nor mal LV segmental wall motion. The left ventricular diastolic function and filling is normal for age. RIGHT VENTRICLE The right ventricle is normal size. There is normal right ventricular wall thickness. The right ventr icular systolic function is normal. ATRIA The left atrium is mildly dilated. The right atrium size is normal. The interatrial septum is intact with no evidence for an atrial septal defect or patent foramen ovale as noted on 2-D or Doppler imagi ng. AORTIC VALVE The aortic valve is normal in structure and function. Doppler and Color Flow revealed no significant aortic regurgitation. There is no significant aortic valvular stenosis. MITRAL VALVE The mitral valve is normal in structure and function. There is no evidence of mitral valve prolapse. There is no mitral valve stenosis. Doppler and Color-flow revealed trace to mild mitral regurgitation . TRICUSPID VALVE The tricuspid valve is normal in structure and function. Doppler and Color Flow revealed mild to mode rate tricuspid regurgitation. Estimated PAP 35 mmHg. There is no tricuspid valve stenosis. PULMONIC VALVE Doppler and Color Flow revealed mild pulmonic valvular regurgitation. There is no pulmonic valvular s tenosis. GREAT VESSELS The aortic root is normal in size. The ascending aorta is normal in size. The IVC is normal in size a nd collapses >50% with inspiration. PERICARDIAL EFFUSION There is no evidence of significant pericardial effusion. Critical Notification Critical Value: No <Conclusion> The left ventricular systolic function is normal and the ejection fraction is within normal range. EF 55% There is normal LV segmental wall motion. Doppler and Color Flow revealed mild to moderate tricuspid regurgitation. Estimated PAP 35 mmHg. Signed by : Jesus Gil, Electronically Approved : 05/11/2021 21:54:43
--- NOTE | 2021-05-11 22:51 | RAD ---
MR#: [id number] Date of Study: 05/11/2021 Ordering Physician: VIRI HERRERA, Referring Physician: LAUREANO CALLE Tech: RT Eyal (R) (N) APPROVED REPORT Test Type: Pharmacological Stress Nurse/Tech: Zackery Parr RN Test Indications: Pre Op for knee surgery Cardiac History: See EMR. Medications: See EMR. Medical History: See EMR. Resting ECG: SR Resting Heart Rate: 49 bpm Resting Blood Pressure: 143/67mmHg Pretest Chest Pain: No chest pain Nurse/Tech Notes Lungs CTA, Heart tones regular. Consent: The procedure was explained to the patient in lay terms. Informed consent was witnessed. Mayo eout was entered into [employer]. History and Stress Test performed by ANGIE Jackson, JACKELYN (R) (N) Pharm. Details Pharmacologic stress testing was performed using 0.4mg per 5ml of regadenoson given intravenously ove r 7-10 seconds. Stress Symptoms Dyspnea, resolved by the end of stress. POST EXERCISE Reason for Termination: Infusion complete Max HR: 68 bpm Max Blood Pressure: 140/67mmHg Blood Pressure response to exercise: Normal blood pressure response during stress. Heart Rate response to exercise: WNL Chest Pain: No. Arrhythmia: No. ST Change: No. INTERPRETATION Stress EKG Conclusion: No evidence of stress induced EKG changes. Imaging Protocol IMAGE PROTOCOL: Rest Tc-99m/stress Tc-99m 1 day Rest: Stress: Viability: Radiopharm.Tc99m QraozpaxiPw32f Sestamibi Dose9.7mCi 31mCi Duration 15min. 10min. Img Date 05/11/2021 05/11/2021 Inj-Img [id number]. 60min. Rest Admin Site:IV - Right AntecubitalAdministrator:RT Eyal (R)(N) Stress Admin Site: IV - Right AntecubitalAdministrator: ANGIE Jackson, JACKELYN (R)(N) STRESS DATA End Diast. Vol.92.0mlAv. Heart Rate57.0bpm End Syst. Vol.26.0mlCO Index BSA0.0L/min Myocardial Wbsg553.0gEject. Larlmlsv08.0% Stress Rates Pk. Fill Rate2.53EDV/secLVtime Pk. Fill 239.58msec Pk. Empty Rate3.78ESV/secLVtime Pk. Osdrd120.75msec 1/ Pk. Fill1.26EDV/sec Stress Scores Regional WT0.00Summed WT0.00 Regional WM0.00Summed WM1.00 The rest and stress images show normal perfusion, normal contraction and thickening. LV Perf. Quant 17 Seg. SSS0.00 17 Seg. SRS1.00 17 Seg. SDS0.00 Stress Defect Extent (% LAD)0.00Rest Defect Extent (% LAD)0.00Rev. Defect Extent (% LAD)0.00 Stress Defect Extent (% LCX) 0.00Rest Defect Extent (% LCX)0.00Rev. Defect Extent (% LCX)0.00 Stress Defect Extent (% RCA)0.00Rest Defect Extent (% RCA)0.00Rev. Defect Extent (% RCA)0.00 Stress Defect Extent (% ELVIRA)0.00Rest Defect Extent (% ELVIRA)0.00Rev. Defect Extent (% ELVIRA)0.00 Other Information Quality:Average Risk Assessment: Low Risk Conclusion 1. No evidence of EKG changes with stress testing. 2. Normal perfusion at stress/rest. 3. Low risk study. 4. EF > 60%. Signed by : Jesus Gil, Electronically Approved : 05/11/2021 22:51:21
== END ==
LOC: ECHO 08:26
PROVIDERS: ATTEND Internal Medicine Cardiovascular Disease
DX: Z01.810 Encounter for preprocedural cardiovascular examination (principal); I08.8 Other rheumatic multiple valve diseases
CPT/HCPCS: 78452; 93017; 93306; A9500; J2785

== ENCOUNTER → 2021-06-17 | Outpatient (CLI) | payer MEDICARE ==
[~2021-06-17] MED LIST changes: -REGADENOSON 0.4 MG/5 ML DISP.SYRIN. IV ONE
[2021-06-17 15:16] LABS: BASO # 0.1 x10^3/uL (0.0-0.2); BASO % 2 % (0-3); EOS # 0.1 x10^3/uL (0.0-0.7); EOS % 2 % (0-3); HEMATOCRIT 34.6 % (39.0-53.0); HEMOGLOBIN 11.4 g/dL (13.0-17.5); LYMPH # 1.1 x10^3/uL (1.0-4.8); LYMPH % 17 % (24-48); MEAN CORPUSCULAR HEMOGLOBIN 31 pg (25-35); MEAN CORPUSCULAR HGB CONC 33 g/dL (31-37); MEAN CORPUSCULAR VOLUME 95 fL (79-100); MONO # 0.6 x10^3/uL (0.0-1.1); MONO % 9 % (0-9); NEUT # 4.7 x10^3/uL (1.8-7.7); NEUT % 70 % (31-73); PLATELET COUNT 233 x10^3/uL (140-400); RED BLOOD COUNT 3.64 x10^6/uL (4.30-5.70); RED CELL DISTRIBUTION WIDTH 13.4 % (11.5-14.5); WHITE BLOOD COUNT 6.8 x10^3/uL (4.0-11.0)
[2021-06-17 16:11] LABS: ALBUMIN 3.8 g/dL (3.4-5.0); CALCIUM 10.7 mg/dL (8.5-10.1); CREATININE 1.6 mg/dL (0.7-1.3); GFR 41.4; PHOSPHORUS 3.6 mg/dL (2.6-4.7); POTASSIUM 5.1 mmol/L (3.5-5.1)
[2021-06-18 15:11] LABS: CALCIUM PTH 10.6 mg/dL (8.6-10.2); CREATININE PTH 1.47 mg/dL (0.76-1.27); PHOSPHORUS PTH 3.4 mg/dL (2.8-4.1); PTH INTACT 16 pg/mL (15-65)
== END ==
LOC: LAB 14:48
PROVIDERS: ATTEND Internal Medicine Nephrology
DX: I12.9 Hypertensive chronic kidney disease with stage 1 through stage 4 chronic kidney disease, or unspecified chronic kidney disease (principal); N18.31 Chronic kidney disease, stage 3a; E11.21 Type 2 diabetes mellitus with diabetic nephropathy; D64.9 Anemia, unspecified; N40.1 Benign prostatic hyperplasia with lower urinary tract symptoms
CPT/HCPCS: 36415; 80069; 82728; 83540; 83550; 83970; 85025

== ENCOUNTER → 2021-11-15 | Outpatient (CLI) | payer MEDICARE ==
[~2021-11-15] MED LIST changes: +CONTRAST GIVEN. MC PRN; +IOHEXOL 350 MG/ML 100 ML VIAL. IV ONE
[2021-11-15 08:22] LABS: CREATININE 1.5 mg/dL (0.7-1.3); GFR 44.5
--- NOTE | 2021-11-15 13:05 | RAD ---
CTA ABDOMEN AND PELVIS WITHOUT IV CONTRAST History: Abdominal aortic aneurysm. Comparison: CT angiogram 02/26/2018, 12/24/2012. Technique: CTA angiogram of the abdomen and pelvis with intravenous contrast. 3-D postprocessing perf ormed with MIPS and surface rendered reformats. Findings: The abdominal aorta measures 2.7 cm at the hiatus. The origin of the celiac and superior mesenteric a rteries are widely patent. 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 There is an infrarenal aortic aneurysm, somewhat fu siform-bilobed and mildly tortuous measuring up to 4.7 cm AP diameter (measured in sagittal plane, se jose 6 image 37), increased from prior studies, most recently 3.9 cm when measured similarly on February 2018 exam. Patent origin of the ISAIAH. Inferior to the ISAIAH origin, there is aneurysmal dilatation extre mity into the bilobed appearance measuring 4.3 cm AP, also increased from prior exam. Moderate mural atheroma. The bilateral common iliac arteries and branches are patent with moderate atherosclerotic c alcifications. Calcified granulomas right lower lobe. Mild emphysematous changes. The liver, gallbladder, and pancre as are unremarkable. Punctate calcifications in the spleen consistent with granulomatous disease. Mul tiple bilateral cystic renal lesions are 1.1 cm hypodensity of the posterior cortex of the right kidn ey measures 38 Hounsfield units, and is mildly enlarged from 2018 comparison, previously 0.8 cm. Bila teral perinephric stranding. There is an enlarging left perinephric cystic mass measuring 15 x 9 x 19 cm. The bladder is unremarkable. Mildly enlarged prostate. Small sliding hiatal hernia. Stomach is otherwise unremarkable. Abnormal course of the duodenum which remains on the right side of the midline from suspected mass effect from left perinephric cystic mas s. The cecum is in normal normal position in the right lower quadrant. Normal appendix. Extensive sig moid diverticulosis. No intra-abdominal free air or free fluid. No adenopathy. Small fat-containing left inguinal hernia. No acute osseous abnormality. Impression: 1. Infrarenal aortic aneurysm, enlarging from 2018, now measuring 4.7 cm maximum AP diameter. 2. Indeterminate intermediate density right renal cystic lesion measuring 38 Hounsfield units, 1.1 c m diameter, enlarged from 2018. This may represent proteinaceous or hemorrhagic cyst versus renal mas s. Recommend multi phase MRI or CT of the kidneys for characterization. 3. Enlarging left perinephric cystic mass which measures fluid attenuation and has been present sinc e at least 2012. This now measures 15 x 9 x 19 cm with mass effect on the small bowel and colon. 4. Extensive sigmoid diverticulosis without evidence of diverticulitis. ------ Exposure: One or more of the following individualized dose reduction techniques were utilized for thi s examination: 1. Automated exposure control 2. Adjustment of the mA and/or kV according to patient size 3. Use of iterative reconstruction technique. Electronically signed by: Cesar Waters MD (11/15/2021 1:02 PM) [id number]
== END ==
LOC: CT 07:34
PROVIDERS: ATTEND Registered Nurse Medical-Surgical
DX: I71.4 Abdominal aortic aneurysm, without rupture (principal); K57.30 Diverticulosis of large intestine without perforation or abscess without bleeding; I70.1 Atherosclerosis of renal artery; N28.89 Other specified disorders of kidney and ureter; J84.10 Pulmonary fibrosis, unspecified; J43.9 Emphysema, unspecified; K44.9 Diaphragmatic hernia without obstruction or gangrene; N40.0 Benign prostatic hyperplasia without lower urinary tract symptoms
CPT/HCPCS: 36415; 74174; 82565; Q9967